=== PATIENT | male | born 1940 | race Caucasian/White ===

== ENCOUNTER 2017-05-30 21:32 | Inpatient (IN) | payer OTHER ==
[~2017-05-30] VITALS: Ht 182.9 cm; Wt 113.4 kg
--- NOTE | ~2017-05-30 | EKG ---
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
--- NOTE | ~2017-05-30 | 2DMMODE ---
Formerly [facility] [address] [place] [address] 2 D/M-MODE ECHOCARDIOGRAM Name: CONSTANTINOEVELYN BAIN Room #: 464-P ADM IN M.R.#: [id number] Admission: 05/31/17 Attend Phys: Ramon Schulz Discharge: Date of : 40 Date of Service: 06/01/17 1431 Report #: [id number] THIS REPORT FOR: //name// APPROVED REPORT Study performed: 06/01/2017 11:56:54 EXAM: Comprehensive 2D, Doppler, and color-flow Echocardiogram Patient Location: Bedside Room #: 464 Other Information Study Quality: Technically Difficult Adequate Indications COPD Diabetes Murmur Dyspnea Hypertension/HDD 2D Dimensions RVDd: 41.21 mm LVEF(%): 67.37 (>50%) IVSd: 16.26 (7-11mm) LVOT Diam: 16.38 (18-24mm) LVDd: 48.76 mm PWd: 15.69 (7-11mm) Ascending Ao: 38.89 (22-36mm) LVDs: 30.48 (25-40mm) Aortic Root: 28.44 mm IVC: 29.00 mm Goldstein's LVEF: 67.37 % Volumes Left Atrial Volume (Systole) Single Plane 4CH: 92.11 mL Single Plane 2CH: 102.11 mL LA ESV Index: 44.00 mL/m2 Aortic Valve AoV Peak Samy.: 4.64 m/s AO Peak Gr.: 86.12 mmHg LVOT Max P.01 mmHg AO Mean Gr.: 45.64 mmHg LVOT Mean P.88 mmHg AO V2 Mean: 3.24 m/s LVOT Max V: 1.43 m/s AO V2 VTI: 103.14 cm LVOT Mean V: 0.92 m/s TOD (VTI): 0.71 cm2 LVOT V1 VTI: 34.95 cm TOD Vmax: 0.65 cm2 Formerly [facility] [place] [address] 2 D/M-MODE ECHOCARDIOGRAM Name: CONSTANTINOEVELYN ODELL Room #: 464-P [facility] IN .R.#: [id number] Admission: 05/31/17 Attend Phys: Ramon Schulz Discharge: Date of : 40 Date of Service: 06/01/17 1431 Report #: [id number] SV (LVOT): 73.62 mL Mitral Valve E/A Ratio: 1.1 MV Decel. Time: 266.92 ms MV E Max Samy.: 1.54 m/s MV A Samy.: 1.45 m/s MV PHT: 77.41 ms IVRT: 58.82 ms Pulmonary Valve PV Peak Samy.: 1.51 m/s PV Peak Gr.: 9.12 mmHg Pulmonary Vein P Vein S: 0.71 m/s P Vein A: 0.29 m/s P Vein D: 0.51 m/s P Vein A Dur.: 103.8 msec P Vein S/D Ratio: 1.39 Tricuspid Valve TR Peak Samy.: 3.68 m/s RAP Estimate: 10.00 mmHg TR Peak Gr.: 54.08 mmHg Left Ventricle The left ventricle is normal size. There is normal LV segmental wall motion. Moderate concentric left ventricular hypertrophy. The left ventricular systolic function is normal. The left ventricular ejection fraction is within the normal range. LVEF is 65%. Moderate diastolic dysfunction is present (pseudonormal filling). Right Ventricle Right ventricle is dilated. The right ventricular systolic function is normal. Atria Left atrium is dilated. Right atrium is dilated. Aortic Valve The Aortic valve is moderately calcified. Mild aortic regurgitation. There is severe valvular aortic stenosis. Aortic valve max velocity is 4.6 m/s with a max pressure gradient of 86 mmHg and a mean pressure gradient of 45.6 mmHg. Mitral Valve Mild-moerate mitral annular calcification Trace mitral regurgitation. No evidence of mitral valve stenosis. Formerly [facility] [address] [place] [address] 2 D/M-MODE ECHOCARDIOGRAM Name: MEEKSEVELYN Santiago Room #: 464-P [facility] IN M.R.#: [id number] Admission: 05/31/17 Attend Phys: Ramon Scuhlz Discharge: Date of : 40 Date of Service: 06/01/17 1431 Report #: [id number] Tricuspid Valve The tricuspid valve is normal in structure. There is mild tricuspid regurgitation. The right atrial pressure is estimated at 10 mmHg and PAP estimated at 64 mmHg. Pulmonic Valve Pulmonic valve is not well visualized. Great Vessels The aortic root is normal in size. Aortic arch is dilated at 3.9 cm. IVC is dilated and collapses >50% with inspiration. Pericardium There is no pericardial effusion. <Conclusion> The left ventricular systolic function is normal. There is normal LV segmental wall motion. LVEF is 65%. Both atria are dilated. The Aortic valve is moderately calcified. Moderately severe valvular aortic stenosis. Aortic valve max velocity is 4.6 m/s with a max pressure gradient of 86 mmHg and a mean pressure gradient of 45.6 mmHg. Mild-moderate mitral annular calcification Trace mitral regurgitation. Pulmonary artery pressure of 65mmHg There is no pericardial effusion. <ELECTRONICALLY SIGNED> By: Gino Mckeon MD, FACC 06/01/17 1431 1431 1431 Gino Mckeon MD, FACC /INF
--- NOTE | ~2017-05-30 | EKG ---
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 : 1940 Requested By: Racheal Hughes Order Number: [id number] MD: Gino Mckeon Measurements Intervals [place] Rate: 92 P: 64 [place]: 172 QRS: 78 QRSD: 108 T: 65 QT: 376 QTc: 466 Interpretive Statements Sinus tachycardia Atrial premature complexes ST elevation, consider inferior injury Compared to ECG 03/15/2015 13:22:34 Atrial fibrillation no longer present Electronically Signed On 06-01-2017 8:02:21 CDT by Gino Mckeon [email or web address] <ELECTRONICALLY SIGNED> By: Gino Mckeon MD, [facility] 06/01/17 0802 1844 1844 Gino Mckeon MD, [facility] /EPI
[~2017-05-30 21:32] MED LIST: ADVAIR 500-501 EACH INH; ALLOPURINOL 30300 M1 PO; AMLODIPINE BESYL5 MG PO; ASA5UEC PO; AVELOX 400 MG400 MG PO; CALAN SR240 MG PO; CARDIZEM CD120 MG PO; COLACE100 MG PO; COMBIVENT INH; COZAAR; COZAAR 25 MG TA25 M1 PO; COZAAR 50 MG TA50 M1 PO; COZAAR 50 MG TA50 M2 PO; COZAAR100 MG PO; DEMADEX100 MG PO; DEMADEX20 MG PO; DILTIAZEM ER90 M1 PO; DUONEB 2.5-0.5 M3 ML INH; GLIPIZIDE XL5 MG PO; HYTRIN 5 M5 MG/1 CAP PO; IRON325 M1 PO; JANUMET 50-1,01 EACH PO; JANUMET XR 1001 EACH PO; JANUVIA100 MG PO; JANUVIA50 MG PO; KLOR-CON 1010 MEQ PO; LASIX 40 MG TAB40 M2 PO; LEVAQUIN 500 M500 M2 PO; NOVOLIN N100 UNIT/3 SUBQ; NOVOLOG100 UNIT/1 SUBQ; PAXIL10 MG; PREDNISONE 10 M10 MG PO; PREDNISONE 20 M20 MG PO; PREDNISONE 5 MG5 M1; SENOKOT-S1 TA1 PO; SPIRIVA INH; TORSEMIDE100 MG PO; TRIMETHOPRIM /P10 M1 OP; TYLENOL325 MG PO; XARELTO15 MG PO; XOPENEX HFA15 GM INH; XOPENEX0.63 MG/3 IH; XOPENEX0.63 MG/3 INH
[2017-05-30 21:34] VITALS: BP 179/87
[2017-05-30 21:46] LABS: HEMATOCRIT 39.6 % (42.0-52.0); HEMOGLOBIN 13.2 gm/dL (14.0-18.0); MCH 31.1 pg (26.0-34.0); MCHC 33.3 g/dL (28.0-37.0); MCV 93.3 fL (80.0-100.0); RBC 4.24 mil/uL (4.50-6.00); RDW 15.7 % (10.5-14.5); WBC 12.9 thou/uL (4.0-11.0)
[2017-05-30 21:47] LABS: ABG COMMENT BIPAP 16/6 X 10MIN; ABG SAMPLE TYPE ARTERIAL; BE(vivo) 5.2 mmol/L (-2 to +3); HCO3 31.2 mmol/L (22.0-26.0); O2(CT) 18.2 mL/dL (15.0-23.0); O2Hb 96.8 % (92.0-98.0); PCO2 51.7 mmHg (35.0-45.0); PO2 126.2 mmHg (80.0-100.0); Pressure Support 10 cm H20; STICK SITE R.RADIAL; pH 7.399 (7.360-7.450); sO2 98.5 % (92.0-98.0); tCO2 32.8 mmol/L (24.0-30.0)
[2017-05-30] MEDS ORDERED: ECOTRIN325 MG PO (21:51)
[2017-05-30] MEDS ORDERED: COZAAR 50 MG TA50 M2 PO (21:51)
[2017-05-30] MEDS ORDERED: IRON18 M1 PO (21:52)
[2017-05-30] MEDS ORDERED: NOVOLOG100 UNIT/1 (21:54)
[2017-05-30] MEDS ORDERED: TRAJEO SUBQ (21:55)
[2017-05-30] MEDS ORDERED: XOPENEX 0.63 MG/3 M1 INH (21:56)
[2017-05-30 21:58] LABS: CALCIUM 9.1 mg/dL (8.5-10.1); CREATININE 1.9 mg/dL (0.7-1.3); POTASSIUM 4.2 mmol/L (3.5-5.1)
[2017-05-30 22:06] LABS: TROPONIN-I 0.17 ng/mL (<0.04-0.07)
[2017-05-30 22:56] LABS: ALBUMIN 3.5 g/dL (3.4-5.0); DIRECT BILIRUBIN 0.1 mg/dL (<0.1-0.3); TOTAL BILIRUBIN 0.4 mg/dL (<0.1-1.0)
[2017-05-30 23:04] LABS: APTT 26.1 Seconds (24.5-32.8); PROTIME 10.2 Seconds (9.3-11.4)
[2017-05-30 23:30] LABS: URINE BILIRUBIN NEGATIVE (Negative); URINE BLOOD NEGATIVE (Negative); URINE COLOR YELLOW; URINE GLUCOSE-RANDOM* NEGATIVE (Negative); URINE KETONES NEGATIVE (Negative); URINE LEUKOCYTES-REFLEX 1+ (Negative); URINE PROTEIN (DIPSTICK) 2+ (Negative)
[2017-05-30 23:55] LABS: CASTS None Seen /LPF (None Seen); CRYSTALS None Seen /LPF (None Seen); SQUAMOUS None Seen /LPF (0-3); URINE RBC 0-2 Rare /HPF (0-2)
[2017-05-31] VITALS (7 sets, daily range): BP systolic 116–160; BP diastolic 51–82
[2017-05-31 05:58] LABS: HEMATOCRIT 37.3 % (42.0-52.0); HEMOGLOBIN 12.4 gm/dL (14.0-18.0); MCH 30.8 pg (26.0-34.0); MCHC 33.2 g/dL (28.0-37.0); MCV 92.6 fL (80.0-100.0); RBC 4.02 mil/uL (4.50-6.00); RDW 15.9 % (10.5-14.5); WBC 16.2 thou/uL (4.0-11.0)
[2017-05-31 06:11] LABS: ALBUMIN 3.1 g/dL (3.4-5.0); CALCIUM 8.8 mg/dL (8.5-10.1); POTASSIUM 4.6 mmol/L (3.5-5.1); TOTAL BILIRUBIN 0.6 mg/dL (<0.1-1.0); TOTAL PROTEIN 7.3 g/dL (6.4-8.2)
[2017-05-31 06:39] LABS: TROPONIN-I 0.13 ng/mL (<0.04-0.07)
[2017-05-31 11:28] LABS: ABG SAMPLE TYPE ARTERIAL; BE(vivo) 0.9 mmol/L (-2 to +3); HCO3 27.2 mmol/L (22.0-26.0); LACTATE 3.06 mmol/L (0.5-2.0); O2(CT) 15.4 mL/dL (15.0-23.0); PCO2 50.2 mmHg (35.0-45.0); pH 7.352 (7.360-7.450); sO2 85.9 % (92.0-98.0); tCO2 28.8 mmol/L (24.0-30.0)
[2017-05-31 11:29] LABS: O2Hb 82.9 % (92.0-98.0); PO2 53.5 mmHg (80.0-100.0); STICK SITE R.RADIAL
[2017-06-01 04:27] VITALS: BP 148/79
[2017-06-01 08:17] VITALS: BP 145/65
[2017-06-01 09:55] LABS: HEMATOCRIT 35.8 % (42.0-52.0); HEMOGLOBIN 11.7 gm/dL (14.0-18.0); MCH 30.4 pg (26.0-34.0); MCHC 32.8 g/dL (28.0-37.0); MCV 92.6 fL (80.0-100.0); RBC 3.87 mil/uL (4.50-6.00); RDW 15.8 % (10.5-14.5); WBC 14.7 thou/uL (4.0-11.0)
[2017-06-01 09:59] LABS: CALCIUM 9.3 mg/dL (8.5-10.1); CREATININE 1.7 mg/dL (0.7-1.3); POTASSIUM 4.6 mmol/L (3.5-5.1)
[2017-06-01 12:05] VITALS: BP 142/75
[2017-06-01 15:41] VITALS: BP 150/69
[2017-06-01 20:06] VITALS: BP 143/56
[2017-06-02 03:45] VITALS: BP 142/57
[2017-06-02 06:25] LABS: HEMATOCRIT 35.9 % (42.0-52.0); HEMOGLOBIN 11.6 gm/dL (14.0-18.0); MCH 30.5 pg (26.0-34.0); MCHC 32.3 g/dL (28.0-37.0); MCV 94.4 fL (80.0-100.0); RBC 3.8 mil/uL (4.50-6.00); RDW 16.1 % (10.5-14.5); WBC 10.2 thou/uL (4.0-11.0)
[2017-06-02 06:37] LABS: CALCIUM 8.9 mg/dL (8.5-10.1); CREATININE 1.8 mg/dL (0.7-1.3)
[2017-06-02 08:51] VITALS: BP 129/56
[2017-06-02 12:12] VITALS: BP 137/62
[2017-06-02 16:09] VITALS: BP 141/53
[2017-06-02 20:00] VITALS: BP 121/73
[2017-06-03 04:00] VITALS: BP 147/72
[2017-06-03 06:20] LABS: HEMATOCRIT 35.5 % (42.0-52.0); HEMOGLOBIN 11.5 gm/dL (14.0-18.0); MCH 30.4 pg (26.0-34.0); MCHC 32.5 g/dL (28.0-37.0); MCV 93.5 fL (80.0-100.0); RBC 3.8 mil/uL (4.50-6.00); RDW 15.4 % (10.5-14.5); WBC 9.2 thou/uL (4.0-11.0)
[2017-06-03 06:39] LABS: CALCIUM 9.1 mg/dL (8.5-10.1); CREATININE 1.7 mg/dL (0.7-1.3)
[2017-06-03 06:42] LABS: POTASSIUM 3.9 mmol/L (3.5-5.1)
[2017-06-03 12:08] VITALS: BP 143/60
[2017-06-03 15:39] VITALS: BP 162/75
[2017-06-03 20:00] VITALS: BP 160/77
[2017-06-04 04:00] VITALS: BP 167/75
[2017-06-04 07:20] VITALS: BP 161/90
[2017-06-04 12:06] VITALS: BP 148/70
[2017-06-04 15:49] VITALS: BP 140/67
[2017-06-04 19:28] VITALS: BP 175/82
[2017-06-05 05:19] VITALS: BP 167/93
[2017-06-05 06:09] LABS: HEMATOCRIT 37.6 % (42.0-52.0); HEMOGLOBIN 12.6 gm/dL (14.0-18.0); MCH 30.7 pg (26.0-34.0); MCHC 33.4 g/dL (28.0-37.0); RBC 4.09 mil/uL (4.50-6.00); RDW 15.4 % (10.5-14.5); WBC 8.2 thou/uL (4.0-11.0)
[2017-06-05 06:20] LABS: CALCIUM 8.4 mg/dL (8.5-10.1); CREATININE 1.5 mg/dL (0.7-1.3); POTASSIUM 3.9 mmol/L (3.5-5.1)
[2017-06-05 08:27] VITALS: BP 161/86
[2017-06-05 12:06] VITALS: BP 150/75
[2017-06-05] MEDS ORDERED: CEFUROXIME250 MG PO (12:44)
[2017-06-05] MEDS ORDERED: MUCINEX TA600 MG/TA1 PO (12:44)
[2017-06-05] MEDS ORDERED: PREDNISONE 5 MG5 M1 PO (12:49)
[2017-06-05 12:56] VITALS: BP 150/75
== END 2017-06-05 15:17 | disposition home or self-care (01) | DRG 871 ==
LOC: ER 21:32 → 4W 05-31 01:18
PROVIDERS: Emergency Medicine; Hospitalist; Internal Medicine; Internal Medicine Pulmonary Disease; Nurse Practitioner Family
PROC: 5A09357 Assistance with Respiratory Ventilation, Less than 24 Consecutive Hours, Continuous Positive Airway Pressure (ICD-10-PCS; principal; 2017-05-31)
DX: A41.9 Sepsis, unspecified organism (principal); J96.21 Acute and chronic respiratory failure with hypoxia; J18.9 Pneumonia, unspecified organism; I50.33 Acute on chronic diastolic (congestive) heart failure; J44.0 Chronic obstructive pulmonary disease with (acute) lower respiratory infection; G93.1 Anoxic brain damage, not elsewhere classified; I48.92 Unspecified atrial flutter; N17.9 Acute kidney failure, unspecified; I13.0 Hypertensive heart and chronic kidney disease with heart failure and stage 1 through stage 4 chronic kidney disease, or unspecified chronic kidney disease; J44.1 Chronic obstructive pulmonary disease with (acute) exacerbation; I48.91 Unspecified atrial fibrillation; I27.2 Other secondary pulmonary hypertension; R01.1 Cardiac murmur, unspecified; E11.22 Type 2 diabetes mellitus with diabetic chronic kidney disease; N18.3 Chronic kidney disease, stage 3 (moderate); I35.0 Nonrheumatic aortic (valve) stenosis; I27.81 Cor pulmonale (chronic); Z90.49 Acquired absence of other specified parts of digestive tract; Z87.891 Personal history of nicotine dependence; Z88.8 Allergy status to other drugs, medicaments and biological substances; Z79.82 Long term (current) use of aspirin; Z79.899 Other long term (current) drug therapy; Z82.49 Family history of ischemic heart disease and other diseases of the circulatory system; Z99.81 Dependence on supplemental oxygen
CPT/HCPCS: 10045

== ENCOUNTER 2017-06-06 09:24 | Inpatient (IN) | payer OTHER ==
[~2017-06-06] VITALS: Ht 182.9 cm; Wt 112.5 kg
--- NOTE | ~2017-06-06 | EKG ---
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 : 1940 Requested By: David Jimenez Order Number: [id number] MD: Gino Mckeon Measurements Intervals [place] Rate: 106 P: [place]: QRS: 28 QRSD: 95 T: 34 QT: 371 QTc: 493 Interpretive Statements Atrial fibrillation Nonspecific ST and T wave abnormality Baseline wander in lead(s) V4,V6 Compared to ECG 05/30/2017 21:38:48 Premature ventricular complexes no longer present Electronically Signed On 06-08-2017 9:21:52 CDT by Gino Mckeon [email or web address] <ELECTRONICALLY SIGNED> By: Gino Mckeon MD, [facility] 06/08/17920 Gino Mckeon MD, [facility] /EPI
--- NOTE | ~2017-06-06 | EKG ---
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 cesar : 1940 Requested By: Chris Gaming Order Number: [id number] MD: Gino Mckeon Measurements Intervals [place] Rate: 158 P: [place]: QRS: 32 QRSD: 86 T: 8 QT: 295 QTc: 479 Interpretive Statements Atrial fibrillation with rapid V-rate Paired ventricular premature complexes ST depression, probably rate related Compared to ECG 05/30/2017 21:38:48 Ventricular premature complex(es) now present ST (T wave) deviation now present Sinus rhythm no longer present Electronically Signed On 06-08-2017 9:09:05 CDT by Gino Mckeon [email or web address] <ELECTRONICALLY SIGNED> By: Gino Mckeon MD, [facility] 06/08/17 0909 0951 0951 Gino Mckeon MD, [facility] /EPI
[~2017-06-06 09:24] MED LIST changes: +CEFUROXIME250 MG PO; +ECOTRIN325 MG PO; +IRON18 M1 PO; +MUCINEX TA600 MG/TA1 PO; +NOVOLOG100 UNIT/1; +PREDNISONE 5 MG5 M1 PO; +TRAJEO SUBQ; +XOPENEX 0.63 MG/3 M1 INH
[2017-06-06 09:29] VITALS: BP 139/108
[2017-06-06 10:41] LABS: HEMATOCRIT 36.8 % (42.0-52.0); HEMOGLOBIN 12.1 gm/dL (14.0-18.0); MCH 30.5 pg (26.0-34.0); MCHC 32.8 g/dL (28.0-37.0); MCV 92.9 fL (80.0-100.0); PLATELET COUNT 198 thou/uL (150-400); RBC 3.96 mil/uL (4.50-6.00); RDW 15.1 % (10.5-14.5); WBC 9.3 thou/uL (4.0-11.0)
[2017-06-06 10:44] LABS: MANUAL DIFF YES
[2017-06-06 10:49] LABS: CALCIUM 8.6 mg/dL (8.5-10.1); CREATININE 1.5 mg/dL (0.7-1.3); POTASSIUM 3.6 mmol/L (3.5-5.1)
[2017-06-06 11:01] LABS: TROPONIN-I 0.09 ng/mL (<0.04-0.07)
[2017-06-06 11:06] LABS: ABG SAMPLE TYPE ARTERIAL; BE(vivo) 11.5 mmol/L (-2 to +3); HCO3 37.6 mmol/L (22.0-26.0); LACTATE 2.38 mmol/L (0.5-2.0); O2(CT) 17.7 mL/dL (15.0-23.0); O2Hb 93.1 % (92.0-98.0); PCO2 55.4 mmHg (35.0-45.0); PO2 75.8 mmHg (80.0-100.0); sO2 95.5 % (92.0-98.0); tCO2 39.3 mmol/L (24.0-30.0)
[2017-06-06 11:07] LABS: STICK SITE L.RADIAL
[2017-06-06 11:16] LABS: ABSOLUTE NEUTROPHILS 7.4 thou/uL (1.4-8.2); ANISOCYTOSIS 1+; NUCLEATED RBCS 1 /100WBC; TOTAL CELL COUNT 100
[2017-06-06 11:17] LABS: POIKILOCYTOSIS SLIGHT
[2017-06-06 15:00] VITALS: BP 112/45
[2017-06-06 15:45] VITALS: BP 121/53
[2017-06-06 19:39] VITALS: BP 151/68
[2017-06-06 22:25] VITALS: BP 151/68
[2017-06-06 23:42] VITALS: BP 148/72
[2017-06-07 01:28] LABS: CALCIUM 8.2 mg/dL (8.5-10.1); CREATININE 1.5 mg/dL (0.7-1.3); MAGNESIUM 2.2 mg/dL (1.8-2.4); POTASSIUM 3.4 mmol/L (3.5-5.1)
[2017-06-07 04:25] VITALS: BP 165/77
[2017-06-07 07:15] VITALS: BP 131/62
[2017-06-07 11:30] VITALS: BP 100/64
[2017-06-07 15:35] VITALS: BP 124/64
[2017-06-07 20:01] VITALS: BP 142/64
[2017-06-08 04:01] VITALS: BP 116/43
[2017-06-08 07:30] VITALS: BP 129/68
[2017-06-08 11:50] VITALS: BP 121/53
[2017-06-08 15:25] VITALS: BP 100/40
[2017-06-08 19:35] VITALS: BP 126/68
[2017-06-09 04:07] LABS: GLYCOHEMOGLOBIN (HGB A1C) 7.4 % (4.8-5.6)
[2017-06-09 07:08] LABS: ABSOLUTE NEUTROPHILS 7.7 thou/uL (1.4-8.2); BASOPHILS 0.4 % (0.0-2.0); EOSINOPHILS 1.4 % (0.0-3.0); HEMATOCRIT 32.8 % (42.0-52.0); HEMOGLOBIN 10.9 gm/dL (14.0-18.0); LYMPHOCYTES 12.3 % (24.0-44.0); MCH 30.9 pg (26.0-34.0); MCHC 33.2 g/dL (28.0-37.0); MONOCYTES 4.6 % (1.0-8.0); PLATELET COUNT 168 thou/uL (150-400); POLYS 81.3 % (36.0-66.0); RBC 3.53 mil/uL (4.50-6.00); RDW 15.3 % (10.5-14.5); WBC 9.5 thou/uL (4.0-11.0)
[2017-06-09 07:15] LABS: MANUAL DIFF NO
[2017-06-09 07:56] VITALS: BP 152/74
[2017-06-09 07:56] LABS: CALCIUM 8.4 mg/dL (8.5-10.1); CREATININE 1.5 mg/dL (0.7-1.3); POTASSIUM 3.9 mmol/L (3.5-5.1)
[2017-06-09 12:20] VITALS: BP 152/82
[2017-06-09 15:50] VITALS: BP 132/55
[2017-06-09 19:52] VITALS: BP 137/60
[2017-06-09 23:51] VITALS: BP 134/56
[2017-06-10 02:53] LABS: CALCIUM 8.1 mg/dL (8.5-10.1); CREATININE 1.4 mg/dL (0.7-1.3)
[2017-06-10 03:23] VITALS: BP 135/53
[2017-06-10 07:42] VITALS: BP 129/47
[2017-06-10 11:40] VITALS: BP 119/44
[2017-06-10 16:30] VITALS: BP 135/60
[2017-06-10 19:10] VITALS: BP 128/51
[2017-06-11 04:02] VITALS: BP 150/52
[2017-06-11 08:03] VITALS: BP 139/51
[2017-06-11 16:14] VITALS: BP 145/58
[2017-06-11 19:28] VITALS: BP 140/62
[2017-06-12 03:58] VITALS: BP 133/49
[2017-06-12] MEDS ORDERED: DUONEB 2.5-0.5 M3 ML INH (07:12)
[2017-06-12] MEDS ORDERED: PRADAXA75 MG PO (07:12)
[2017-06-12] MEDS ORDERED: ATENOLOL 50MG T50 MG PO (07:12)
[2017-06-12] MEDS ORDERED: PREDNISONE 10 M10 MG PO (07:14)
[2017-06-12 07:29] VITALS: BP 133/49
[2017-06-12 10:49] VITALS: BP 133/49
[2017-06-12 11:49] VITALS: BP 133/49
== END 2017-06-12 11:51 | disposition home or self-care (01) | DRG 291 ==
LOC: ER 09:24 → 2N 11:53 → EROBS 11:53 → 2N 14:47
PROVIDERS: Emergency Medicine; Family Medicine; Internal Medicine; Internal Medicine Geriatric Medicine; Internal Medicine Pulmonary Disease
DX: I50.33 Acute on chronic diastolic (congestive) heart failure (principal); J96.21 Acute and chronic respiratory failure with hypoxia; N17.9 Acute kidney failure, unspecified; I13.0 Hypertensive heart and chronic kidney disease with heart failure and stage 1 through stage 4 chronic kidney disease, or unspecified chronic kidney disease; I48.92 Unspecified atrial flutter; I48.0 Paroxysmal atrial fibrillation; J44.9 Chronic obstructive pulmonary disease, unspecified; E11.9 Type 2 diabetes mellitus without complications; I27.2 Other secondary pulmonary hypertension; I35.0 Nonrheumatic aortic (valve) stenosis; N18.9 Chronic kidney disease, unspecified; Z79.82 Long term (current) use of aspirin; Z79.4 Long term (current) use of insulin; Z87.01 Personal history of pneumonia (recurrent); Z79.52 Long term (current) use of systemic steroids; Z79.899 Other long term (current) drug therapy; Z87.891 Personal history of nicotine dependence; Z90.49 Acquired absence of other specified parts of digestive tract; Z88.8 Allergy status to other drugs, medicaments and biological substances
CPT/HCPCS: 10081

== ENCOUNTER → 2017-07-10 | Outpatient (CLI) | payer OTHER ==
[~2017-07-10] MED LIST changes: +ATENOLOL 50MG T50 MG PO; +PRADAXA75 MG PO
== END ==
LOC: RAD 11:35
DX: R06.00 Dyspnea, unspecified (principal)

== ENCOUNTER → 2018-11-17 | Outpatient (CLI) | payer OTHER ==
--- NOTE | ~2018-11-17 | 2DMMODE ---
[facility] [place] [address] 2 D/M-MODE ECHOCARDIOGRAM Name: EVELYN MEEKS Room #: REG CL [facility]#: [id number] Admission: 11/17/18 Attend Phys: Gino Mckeon, Discharge: Date of : 40 Date of Service: 11/17/18 1209 Report #: [id number] THIS REPORT FOR: //name// APPROVED REPORT Study performed: 11/17/2018 10:22:02 EXAM: Comprehensive 2D, Doppler, and color-flow Echocardiogram Patient Location: Out-Patient Status: routine BSA: 2.22 HR: 72 bpm BP: 142/75 mmHg Rhythm: NSR Other Information Study Quality: Good Indications Aortic stenosis, CHF, Afib, HTN, COPD 2D Dimensions RVDd: 42.91 mm IVSd: 13.32 (7-11mm) LVOT Diam: 20.96 (18-24mm) LVDd: 49.53 mm PWd: 12.57 (7-11mm) Ascending Ao: 42.32 (22-36mm) LVDs: 35.12 (25-40mm) Aortic Root: 39.19 mm Volumes Left Atrial Volume (Systole) Single Plane 4CH: 84.66 mL Single Plane 2CH: 91.02 mL LA ESV Index: 43.00 mL/m2 Aortic Valve AoV Peak Samy.: 4.74 m/s AO Peak Gr.: 89.84 mmHg LVOT Max P.72 mmHg AO Mean Gr.: 54.20 mmHg AO V2 Mean: 3.57 m/s LVOT Max V: 1.30 m/s AO V2 VTI: 102.25 cm TOD Vmax: 0.94 cm2 Mitral Valve E/A Ratio: 0.9 [facility] [place] [address] 2 D/M-MODE ECHOCARDIOGRAM Name: EVELYN MEEKS Room #: [facility]#: [id number] Admission: 11/17/18 Attend Phys: Gino Mckeon, Discharge: Date of : 40 Date of Service: 11/17/18 1209 Report #: [id number] MV Decel. Time: 290.87 ms MV E Max Samy.: 1.26 m/s MV A Samy.: 1.39 m/s MV PHT: 84.35 ms IVRT: 55.36 ms Pulmonary Valve PV Peak Samy.: 1.32 m/s PV Peak Gr.: 6.97 mmHg Pulmonary Vein P Vein S: 0.54 m/s P Vein A: 0.30 m/s P Vein D: 0.55 m/s P Vein A Dur.: 156.9 msec P Vein S/D Ratio: 0.98 Tricuspid Valve TR Peak Samy.: 3.54 m/s RAP Estimate: 10.00 mmHg TR Peak Gr.: 50.17 mmHg PA Pressure: 60.00 mmHg Left Ventricle The left ventricle is normal size. There is normal LV segmental wall motion. Mild concentric left ventricular hypertrophy. Left ventricular systolic function is normal. LVEF is 65%. Mild diastolic dysfunction is present (impaired relaxation pattern). Right Ventricle Right ventricle is mildly dilated. The right ventricular systolic function is normal. Atria Left atrium is mild to moderately dilated. Right atrium is mildly dilated. Aortic Valve Aortic valve is heavily calcified, severely stenotic. Mild aortic regurgitation. There is severe valvular aortic stenosis. Calculated aortic valve area is 0.9 cm2 with maximum pressure gradient of 90 mmHg and mean pressure gradient of 48 mmHg. Mitral Valve Mild mitral annular calcification. Trace to mild mitral regurgitation. No evidence of mitral valve stenosis. Tricuspid Valve The tricuspid valve is normal in structure. Mild to moderate tricuspid regurgitation. Estimated PAP is 60mmHg. [facility] [address] [place] [address] 2 D/M-MODE ECHOCARDIOGRAM Name: EVELYN MEEKS Room #: REG CL [place]#: [id number] Admission: 11/17/18 Attend Phys: Gino Mckeon, Discharge: Date of : 40 Date of Service: 11/17/18 1209 Report #: [id number] Pulmonic Valve Pulmonic valve is not well visualized. Great Vessels Aortic root is mildly dilated at 3.9cm. Ascending aorta is dilated at 4.2cm. IVC is dilated and collapses >50% with inspiration. Pericardium There is no pericardial effusion. <Conclusion> Left ventricular systolic function is normal. There is normal LV segmental wall motion. LVEF is 65%. Mild diastolic dysfunction Aortic valve is heavily calcified, severely stenotic. Mild insufficiency Calculated aortic valve area is 0.9 cm2 with maximum pressure gradient of 90 mmHg and mean pressure gradient of 48 mmHg. Mild mitral annular calcification. Trace to mild mitral regurgitation. Mild to moderate tricuspid regurgitation. Estimated pulmonary artery pressure of 60mmHg. Ascending aorta is dilated at 4.2cm. There is no pericardial effusion. Similar to May, when peak transaortic gradient was 86mm, mean 46mm Hg. EF similar. <ELECTRONICALLY SIGNED> By: Gino Mckeon MD, FACC 11/17/181208 08 08 Gino Mckeon MD, FACC /INF
== END ==
LOC: CV 07:53
DX: I08.2 Rheumatic disorders of both aortic and tricuspid valves (principal); I11.0 Hypertensive heart disease with heart failure; I50.32 Chronic diastolic (congestive) heart failure; I48.0 Paroxysmal atrial fibrillation; J44.9 Chronic obstructive pulmonary disease, unspecified; J96.11 Chronic respiratory failure with hypoxia

== ENCOUNTER 2019-03-07 22:42 | Inpatient (IN) | payer OTHER ==
[~2019-03-07] VITALS: Ht 172.7 cm; Wt 107.6 kg
--- NOTE | ~2019-03-07 | HC ---
Formerly [facility] [place] [address] CONSULTATION Name: EVELYN MEEKS Room #: 216-P [facility] IN M.R.#: [id number] Admission: 03/08/19 ������������������ Attend Phys: Malik Leonard MD Discharge: ������������������ Date of : 40 Report #: [id number] THIS REPORT FOR: //name// CC: FAM unknown Malik Leonard DATE OF SERVICE: 03/11/2019 REASON FOR CONSULTATION: Elevated creatinine. REASON FOR PRESENTATION: Confusion and lethargic. HISTORY OF PRESENT ILLNESS: Very complex 78-year-old with history of hypertension, CKD, COPD, heart failure, AFib, aortic stenosis. He was brought to the Emergency Room because of low pulse ox, increased confusion and lethargy. The patient is known to have CKD with a baseline creatinine anywhere from 1.5-1.8. He is known to have severe aortic stenosis. He was admitted to further evaluate his symptoms. He developed fever and chills. He also has some cough. He denies any urinary symptoms. Alejandra catheter was placed for the patient on arrival. He has a creatinine of 1.8 on arrival. This has gone up to 2.9 after removing the Alejandra catheter. As it turned out, the patient has significant urinary retention and had about a liter of urine after replacing his Alejandra catheter. He is currently being treated as COPD exacerbation with a viral component. Cardiology is also following. PAST MEDICAL HISTORY: Extensive and includes the followin. COPD, oxygen dependent. 2. Severe aortic stenosis. 3. A-Fib. 4. Heart failure. 5. Chronic kidney disease. 6. Hypertension. 7. Cholecystectomy. 8. Atrial fibrillation. 9. Chronic venous stasis changes. ALLERGIES: DIAZEPAM. SOCIAL HISTORY: , lives with his . MEDICATIONS: 1. Iron. 2. Diltiazem. 3. Losartan. 4. Aspirin. 5. Allopurinol. Formerly [facility] [address] [place] [address] CONSULTATION Name: EVELYN MEEKS Room #: 216-P [facility] IN [facility].#: [id number] Admission: 03/08/19 ������������������ Attend Phys: Malik Leonard MD Discharge: ������������������ Date of : 40 Report #: [id number] 6. Torsemide. REVIEW OF SYSTEMS: GENERAL: Significant for shortness of breath and weakness. CARDIOVASCULAR: Shortness of breath and dyspnea on exertion. PULMONARY: As per the history of present illness. GASTROINTESTINAL: No nausea or vomiting. GENITOURINARY: As per the history of present illness. PHYSICAL EXAMINATION: GENERAL: He is alert, oriented, in no apparent distress. He is utilizing oxygen nasal cannula 5 liters. VITAL SIGNS: Blood pressure is 101/50. He did have some low blood pressure reading. HEAD AND NECK: No jugular venous distention. CHEST: Decreased air entry with crackles. CARDIOVASCULAR: No rub. ABDOMEN: Soft, nontender. LOWER EXTREMITIES: Trace edema. LABORATORY DATA: Reviewed. Hemoglobin is 8.7. Sodium is 131, potassium is 3.8, BUN is 51, creatinine is 2.9. Cultures so far negative. ASSESSMENT, IMPRESSION AND PLAN: 1. Acute kidney injury due to urinary retention. 2. Chronic kidney disease. 3. Atrial fibrillation. 4. Severe aortic stenosis. 5. Chronic obstructive pulmonary disease. 6. Catheter was placed back in. He did have significant urine output up to 2 liters. 7. Monitor urine. Renal function. Labs from today pending. 8. Baseline creatinine is around 1.5-1.8 and expect him to fully recover. 9. Management of chronic obstructive pulmonary disease per Pulmonary. 10. Management of aortic stenosis and atrial fibrillation per Cardiology. 11. Blood sugar control. 12. We will continue to follow. ��������������������������������������������� ���������������������������������������� By: ��������������������������������������������� 0814 2238 Dariusz Fontenot MD /nt
[2019-03-07 22:48] VITALS: BP 151/62
[2019-03-07 23:36] LABS: BE(vivo) 4.7 mmol/L (-2 to +3); HCO3 29.1 mmol/L (22.0-26.0); PCO2 42.6 mmHg (35.0-45.0); pH 7.452 (7.360-7.450); sO2 94.3 % (92.0-98.0)
[2019-03-08 00:32] LABS: ABSOLUTE NEUTROPHILS 5.6 thou/uL (1.4-8.2); BASOPHILS 0.7 % (0.0-2.0); EOSINOPHILS 0.2 % (0.0-3.0); HEMATOCRIT 28.7 % (42.0-52.0); HEMOGLOBIN 9.8 gm/dL (14.0-18.0); MCH 29.2 pg (26.0-34.0); MCV 85.7 fL (80.0-100.0); MONOCYTES 11.9 % (1.0-8.0); PLATELET COUNT 211 thou/uL (150-400); POLYS 74.2 % (36.0-66.0); RBC 3.35 mil/uL (4.50-6.00); RDW 18.4 % (10.5-14.5); WBC 7.6 thou/uL (4.0-11.0)
[2019-03-08 00:44] LABS: CALCIUM 9.4 mg/dL (8.5-10.1); CREATININE 1.8 mg/dL (0.7-1.3); POTASSIUM 3.2 mmol/L (3.5-5.1)
[2019-03-08 00:50] LABS: ALBUMIN 3.1 g/dL (3.4-5.0); TOTAL BILIRUBIN 0.5 mg/dL (<0.1-1.0); TOTAL PROTEIN 7.1 g/dL (6.4-8.2); TROPONIN-I 0.08 ng/mL (<0.06)
[2019-03-08 07:36] VITALS: BP 142/74
[2019-03-08 08:42] LABS: URINE BILIRUBIN NEGATIVE (Negative); URINE BLOOD 1+ (Negative); URINE CLARITY CLEAR; URINE COLOR YELLOW; URINE GLUCOSE-RANDOM* NEGATIVE (Negative); URINE KETONES NEGATIVE (Negative); URINE LEUKOCYTES-REFLEX NEGATIVE (Negative); URINE NITRITE-REFLEX NEGATIVE (Negative); URINE PROTEIN (DIPSTICK) 2+ (Negative); URINE UROBILINOGEN 0.2 E.U./dl (0.2-1.0)
[2019-03-08 09:01] VITALS: BP 153/81
[2019-03-08 09:03] LABS: SQUAMOUS None Seen /LPF (0-3)
[2019-03-08 09:04] LABS: BACTERIA-REFLEX 1-9 Few /HPF (None Seen); CASTS None Seen /LPF (None Seen); CRYSTALS None Seen /LPF (None Seen); URINE RBC 3-10 Few /HPF (0-2); URINE WBC-REFLEX None Seen /HPF (0-5)
[2019-03-08 10:26] LABS: % SATURATION 7 % (20-39); IRON 20 ug/dL (65-175); TIBC 273 ug/dL (250-450)
--- NOTE | 2019-03-08 11:05 | NUR ---
SPOKE WITH ASHER ARELLANO, OKAY TO GIVE 70 MEQ OF POTASSIUM PO.
[2019-03-08] MEDS ORDERED: CARDIZEM CD240 MG PO (13:01)
[2019-03-08] MEDS ORDERED: TOUJEO SOL300 UNIT/1 SUBQ (13:07)
[2019-03-08] MEDS ORDERED: CENTRUM SILVER1 EAC2 PO (13:08)
[2019-03-08] MEDS ORDERED: VENTOLIN HFA 1818 GM INH (13:08)
[2019-03-08] MEDS ORDERED: VITAMIN B-12500 MCG PO (13:08)
[2019-03-08] MEDS ORDERED: IRON325 PO (13:10)
[2019-03-08] MEDS ORDERED: PREDNISONE 1 MG1 M1 PO (13:13)
--- NOTE | 2019-03-08 14:56 | NUR ---
ASSUMED CARE AT 0700. PT IS IN ER-HOLDING. PT IS A&OX4. PT LIKES TO JOKE AROUND. PT HAS BEEN AFEBRILE SINCE CARE HAS BEEN TAKEN OVER. PT IS WEAK. PT WANTS TO STAND UP AT BEDSIDE BUT IS VERY WEAK AND NEEDS A LOT OF ASSISTANCE. NG PLACED PER ORDER. 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
--- NOTE | 2019-03-08 16:52 | EKG ---
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: NICHOLE : 1940 Requested By: Tia Lim Order Number: [id number] MD: Gino Mckeon Measurements Intervals [place] Rate: 100 P: MS: QRS: 22 QRSD: 89 T: -12 QT: 329 QTc: 425 Interpretive Statements Atrial fibrillation Nonspecific ST and T wave abnormality Compared to ECG 06/07/2017 07:39:50 No significant change was found Electronically Signed On 03-08-2019 16:51:59 CDT by Gino Mckeon [email or web address] ��������������������������������������������� <ELECTRONICALLY SIGNED> ���������������������������������������� By: Gino Mckeon MD, [facility] ��������������������������������������������� 03/08/19 1651 20 20 Gino Mckeon MD, [facility] /EPI
[2019-03-08 17:10] VITALS: BP 129/70
[2019-03-08 19:00] VITALS: BP 131/60
[2019-03-09 00:06] VITALS: BP 123/58
[2019-03-09 04:52] LABS: BASOPHILS 0.3 % (0.0-2.0); HEMATOCRIT 28.9 % (42.0-52.0); HEMOGLOBIN 9.6 gm/dL (14.0-18.0); LYMPHOCYTES 8.1 % (24.0-44.0); MCH 28.4 pg (26.0-34.0); MCHC 33.1 g/dL (28.0-37.0); MCV 85.8 fL (80.0-100.0); MONOCYTES 1.8 % (1.0-8.0); PLATELET COUNT 189 thou/uL (150-400); POLYS 89.8 % (36.0-66.0); RBC 3.36 mil/uL (4.50-6.00); RDW 18.1 % (10.5-14.5); WBC 5.5 thou/uL (4.0-11.0)
[2019-03-09 05:01] LABS: CALCIUM 8.8 mg/dL (8.5-10.1); CREATININE 2.1 mg/dL (0.7-1.3); POTASSIUM 4.4 mmol/L (3.5-5.1)
--- NOTE | 2019-03-09 05:34 | NUR ---
ASSUMED PT CARE AT 1900. PT WAS A NEW ADMIT FROM ER. ADMISSION ASSESSMENT DONE AND MEDS ADMINISTERED. PT WAS A&0X4 BUT REALLY DROWSY, TIREDA ND WEAK. WHEN I ASKED HIM TO SIT UP SO I COULD LISTEN TO HIS LUNGS, HE WAS UNABLE TO. PT'S INITIAL TEMP UPON GETTING TO THE FLOOR WAS WNL, AROUND 10PM, HE SPIKED A 102.5 FEVER. TYLENOL GIVEN AND HIS FEVER DROPPED TO 99.5 AN HOUR AFTER. THIS AM HIS TEMP FURTHER DROPPED TO 97.5. HE HAS 2+ EDEMA IN HIS BLE. STILL HAS A NG IN, GOOD URINE OUTPUT OVERNIGHT. ABX ADMINISTERED ORDERED. HIS HR WAS ALSO ELEVATED FOR THE FIRST HALF OF THE SHIFT. HE WAS BOUNCING AROUND 110s TO 130s. THERE WAS ONETIME WHEN HIS HR WENT UP TO 150s WHEN HE WAS HAVING HIS BREATHING TX. ANGELIQUE RONQUILLO NOTIFIED, 2.5MG IV METOPROLOL WAS ORDERED AND ADMINISTERED AND PT'S HR CAME DOWN TO THE 80s AND IT HAS REMAINED LIKE THAT SINCE THE MED WAS GIVEN AROUND 1AM. I INCREASED HIS 02 TO 7L, HE WAS SATTING IN THE HIGH 80S ON 6L. HIS STRENGHT IS MUCH BETTER THIS AM. HE WAS ABLE TO SIT UP FOR ME UPON INSTRUCTION, HE ALSO SEEMS TO BE DOING WELL. PT IS STABLE NOW, EVERYTHING APPEARS TO BE UNDER CONTROL. WILL CONTINUE TO MONITOR PER POC.
[2019-03-09 05:42] VITALS: BP 139/74
--- NOTE | 2019-03-09 08:24 | EKG ---
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: : 1940 Requested By: Gnio Mckeon Order Number: [id number] MD: Antony Carr Measurements Intervals [place] Rate: 80 P: [place]: QRS: 40 QRSD: 92 T: 18 QT: 413 QTc: 477 Interpretive Statements Atrial fibrillation Borderline prolonged QT interval Baseline wander in lead(s) V4,V5 Compared to ECG 03/07/2019 23:21:52 ST (T wave) deviation no longer present Electronically Signed On 03-09-2019 8:24:02 CDT by Antony Carr [email or web address] ��������������������������������������������� <ELECTRONICALLY SIGNED> ���������������������������������������� By: Antony Carr MD ��������������������������������������������� 03/09/1924 5 5 Antony Carr MD /EPI
--- NOTE | 2019-03-09 11:56 | HC ---
[facility] [place] [address] CONSULTATION Name: EVELYN MEEKS Room #: 216-P ADM IN M.R.#: [id number] Admission: 03/08/19 ������������������ Attend Phys: Malik Leonard MD Discharge: ������������������ Date of : 40 Report #: [id number] THIS REPORT FOR: //name// CC: FAM unknown Malik Leonard DATE OF SERVICE: 03/08/2019 TYPE OF REPORT: Infectious disease consultation. REASON FOR CONSULTATION: Evaluate fever. HISTORY OF PRESENT ILLNESS: The patient is a 78-year old, underlying history of aortic stenosis, oxygen-dependent COPD, diabetes and chronic kidney disease; admitted through the Emergency Room with generalized weakness, some confusion, shortness of breath that has been progressive over the last several days. Also noted to have fever and chills today. He has had intermittent cough with little sputum production. No pleuritic chest pain. No nausea, vomiting or diarrhea. No dysuria. He was treated for exacerbation of COPD approximately 2 weeks ago with oral antibiotic and corticosteroids. Since then, he still had some dyspnea and cough. The patient denies any travel. There was a history in the chart of previous MRSA in his respiratory secretions. No chest pain either substernal or pleuritic. He does have known atrial fibrillation. REVIEW OF SYSTEMS: Ten-point review was negative other than what is described above. ALLERGIES: VALIUM. MEDICATIONS: As noted on his MAR, now including Zosyn. He was on prednisone 1 mg per day. PAST MEDICAL HISTORY: COPD, oxygen dependent; congestive heart failure; aortic stenosis; previous pneumonia; chronic kidney disease; diabetes; hypertension; cholecystectomy and atrial fibrillation. FAMILY HISTORY: Noncontributory. SOCIAL HISTORY: Past smoker. No significant alcohol intake. Lives with his . PHYSICAL EXAMINATION: VITAL SIGNS: His temperature was 38 degrees, heart rate was 80 and atrial fibrillation and blood pressure is stable. He was on oxygen at 6 liters per [facility] [address] [place] [address] CONSULTATION Name: EVELYN MEEKS Room #: 216-[facility] IN [facility]#: [id number] Admission: 03/08/19 ������������������ Attend Phys: Malik Leonard MD Discharge: ������������������ Date of : 40 Report #: [id number] nasal cannula. GENERAL: He was moderately obese. He was short of breath with any activity and intermittent nonproductive loose sounding cough. HEENT: Eyes without scleral icterus. Mouth without mucositis. He was edentulous. NECK: Supple, with no thyromegaly or mass. No JVD. LUNGS: Decreased breath sounds bilaterally with no consolidation. HEART: Irregular with a 2/6 systolic murmur heard at left sternal border. No gallop or rub. ABDOMEN: Obese, protuberant and had a midline ventral hernia, which was easily reducible. No hepatosplenomegaly or mass. GENITOURINARY: External genitalia without lesion or mass and indwelling Alejandra catheter. RECTAL: Not performed. EXTREMITIES: With 2+ peripheral edema in the lower extremities, but no cellulitis. No clubbing or cyanosis. NEUROLOGICAL: Cranial nerves intact. Strength in his upper and lower extremities was normal with normal sensation to touch upper and lower extremities. Mood was normal, although he appeared a bit confused. LABORATORY STUDIES: Procalcitonin 0.3. TSH 3.5. BNP 1024. Sodium 137, potassium 3.2, bicarbonate 33 and creatinine 1.8. Liver function test normal. Hemoglobin 9.8; WBC 7.6 and platelet count 211,000. Blood cultures are pending. RADIOLOGICAL DATA: Chest x-ray, chronic changes with cardiomegaly and no acute infiltrates evident. IMPRESSION: A 78-year old with advanced chronic obstructive pulmonary disease, diabetes and aortic stenosis; presents with confusion, fever and anemia, in acute on chronic kidney disease. I am suspecting exacerbation of chronic obstructive pulmonary disease, bronchitis, could be viral in nature. So far no evidence of intraabdominal infection or urinary tract infection. He does have anemia, which is yet to be further defined. RECOMMENDATIONS: We will continue IV antibiotic therapy with Zyvox, Zosyn and Tamiflu. Obtain urine antigens, viral respiratory panel, sputum culture and rescreen for MRSA. Corticosteroids and oxygen supplementation. Monitored floor. Discussed with nursing at the bedside. ��������������������������������������������� <ELECTRONICALLY SIGNED> ���������������������������������������� By: Chapincito Rico MD ��������������������������������������������� 03/09/19 1156 [id number] Chapincito Rico MD /nt
--- NOTE | 2019-03-09 14:17 | NUR ---
Met with patient and in room. patient admits with copd exacerbation. Patient and reside at home in independent home all needs on one level. All needs on one level. "Ill save you a trip we dont need anything at home." Patient always denies need for home. was here for EGD and then patient went to ER. reports 3 supportive sons live in [facility] and [facility]. Patient uses no assistive device. he has home oxygen via [employer] 5-6 liters at home. casemgt following.
[2019-03-09 14:58] VITALS: BP 136/114
--- NOTE | 2019-03-09 18:32 | NUR ---
ASSESSMENT DOCUMENTED. PT ALERT AND ORIENTED. ON 7L N/C SAT LOW 90,S. RT TREATMENT GIVEN ORDERED. CONTACT ISOLATION D/C. BERENICE D/C. HAD HIGH BS THIS SHIFT. DR SWIFT NOTIFIED. ORDERS NOTED. SB ON TELI WITH PAUSES. CARDIOLOGY NOTIFIED. PT HAS BEEN UP IN THE CHAIR THIS SHIFT. AT THE BEDSIDE. NO CARDIAC OR RESPIRATORY DISTRESS NOTED. FALL PRECAUTION IN PLACE. WILL CONTINUE TO MONITOR.
[2019-03-09 19:31] VITALS: BP 84/69
[2019-03-10 03:59] VITALS: BP 97/47
[2019-03-10 04:57] LABS: CALCIUM 8.7 mg/dL (8.5-10.1); CREATININE 2.9 mg/dL (0.7-1.3); POTASSIUM 3.8 mmol/L (3.5-5.1)
[2019-03-10 05:13] LABS: HEMATOCRIT 25.9 % (42.0-52.0); HEMOGLOBIN 8.7 gm/dL (14.0-18.0); MCH 28.6 pg (26.0-34.0); MCHC 33.5 g/dL (28.0-37.0); MCV 85.5 fL (80.0-100.0); RBC 3.03 mil/uL (4.50-6.00); WBC 8.1 thou/uL (4.0-11.0)
--- NOTE | 2019-03-10 05:26 | NUR ---
ASSUMED PT CARE AT 1900. VSS. PT A&0X4 IN HIGH SPIRITS AND SITTING UP IN THE CHAIR. PT STRENGHT HAS IMPROVED SINCE DAY ONE OF ADMISSION. FSBS AT THE START OF SHIFT WAS 416 AND WAS COVERED PER SSI AND SCHEDULED T, ANGELIQUE RONQUILLO ALSO NOTIFIED. FSBS RECHECKED AT MIDNIGHT AND IT SLIGHTLY DROPPED TO 358, ANGELIQUE RONQUILLO NOTIFIED AND A ONETIME TREATMENT PER SSI WAS ORDERED. HENCE ANOTHER 20 UNITS OF INSULIN WAS ADMINISTERED. THIS AM, BLOOD SUGAR DROPPED TO 262. PT STILL ON FLUID RESTRICTION, ALTHOUGH HE GETS VERY THIRSTY AND REQUESTS WATER OFTEN. BERENICE WAS TAKEN OUT PRIOR TO ME COMMING ON PT;S CARE AND PT HAD 250 ML URINE OUTPUT OVERNIGHT. PT REMAINS OF 7L NC. PT IS STABLE, WILL CONTINUE TO MONITOR.
[2019-03-10 08:31] VITALS: BP 95/51
--- NOTE | 2019-03-10 11:56 | NUR ---
PATIENT UNABLE TO VOID X 3 TIMES, BLADDER SCAN RESULTS 579ML, DR RAMOS NOTIFIED, NG CATHETER ORDERED
[2019-03-10 12:26] VITALS: BP 104/58
--- NOTE | 2019-03-10 14:09 | NUR ---
Nutrition: Pt admitted with sepsis, COPD exacerbation/viral illness. Seen due to sepsis dx. Pt with good appetite. Not a huge fan of the hospital food but able to order meals. Listened to pt voice complaints-addressed. BG 239-358 on carb controlled diet and SSI. Recent intentional weight loss of 20# voiced by pt. Sarcopenia documented per physician. Fluid restriction reviewed with pt/ . Consider low nutrition risk.
[2019-03-10 16:00] VITALS: BP 107/59
--- NOTE | 2019-03-10 17:38 | NUR ---
PATIENT UNABLE TO URINATE, BLADDER SCAN PERFORMED, RESULTS OF SCAN 579 MLS, NG CATHETER INSERTED. PATIENT GIVEN MIRALAX AND PRUNE JUICE, ALERT AND ORIENTED, STATES HE IS MORE COMFORTABLE IN CHAIR AND WOULD LIKE TO SLEEP IN THE CHAIR.
[2019-03-10 19:16] VITALS: BP 115/55
--- NOTE | 2019-03-11 04:16 | NUR ---
ASSUMED PT CARE AT 1900. VSS. PT A&0X4. PT;S ACTIVITY AND MOBILITY SEAMS TO BE GETIING BETTER. HE WAS STEADY ON HIS FEET THE FEW TIMES HE HAD TO GET UP AND GO TO THE TOILET. HE HAD 2 BM THIS SHIFT. GOOD URINE OUTPUT OVERNIGHT. HE IS NOW ON 5L NC. TOLERATING IT WELL. PT IS DOING BETTER, HE SAYS HE FEELS BETTER, NO COMPLAINTS OF PAIN, WILL CONTINUE TO MONITOR PER POC.
[2019-03-11 04:51] VITALS: BP 101/50
[2019-03-11 08:52] VITALS: BP 101/51
[2019-03-11 08:58] LABS: CALCIUM 8.8 mg/dL (8.5-10.1); CREATININE 2.6 mg/dL (0.7-1.3); PHOSPHORUS 5.1 mg/dL (2.5-4.9); POTASSIUM 4.1 mmol/L (3.5-5.1)
--- NOTE | 2019-03-11 14:41 | NUR ---
Discussed hh referral with the pt. He will consider if recommended at dc. [facility] alerted to possible referral and they can accept if the pt is agreeable. If the pt is dc'd this weekend, fax hh orders to [phone] and call the paper control clerk nurse to advise [phone].
[2019-03-11 14:43] VITALS: BP 101/51
[2019-03-11 16:59] VITALS: BP 126/68
--- NOTE | 2019-03-11 17:28 | NUR ---
PT ALERT AND ORIENTED. VSS. DENIED HAVING PAIN OR DISCOMFORT. PARTICIPATED IN PHYSICAL AND OCCUPATION THERAPY. UP IN THE CHAIR THIS SHIFT. NO CARDIAC OR RESPIRATORY DISTRESS NOTED. AT THE BEDSIDE. WILL CONTINUE TO MONITOR.
[2019-03-11 18:06] LABS: ADENOVIRUS Negative (Negative); INFLUENZA A Negative (Negative); INFLUENZA B Negative (Negative); METAPNEUMOVIRUS Negative (Negative); PARAINFLUENZA 1 Negative (Negative); PARAINFLUENZA 2 Negative (Negative); PARAINFLUENZA 3 Negative (Negative); RHINOVIRUS Negative (Negative); RSV A Negative (Negative); RSV B Negative (Negative)
[2019-03-11 22:55] VITALS: BP 116/58
--- NOTE | 2019-03-12 03:43 | NUR ---
RECEIVED PT'S CARE AT 1925; PT. ON CHAIR; RELATIVES AT BED SIDE; NO C/O PAIN; DURING ASSESSMENT PT. AOX4; NO C/O PAIN; ST. SLEEPING COMFORTABLE OVER RECLINER; RECLINER PROVIDED FOR ; EDUCATED ABOUT FALL PREVENTION; ST. UNDERSTANDING; BS 152 AT HS; REFUSED SHORT TERM INSULING; ABLE TO REST A FEW HOURS WITH EYES CLOSE DURING THE NIGHT; AT 0320 REQUESTED COFFEE; REMAINED FLUID RESTRICTION; ASSESSMENT CHARGED; FOLLOWING POC; WILL PASS ON REPORT.
[2019-03-12 04:13] VITALS: BP 130/57
[2019-03-12 05:14] LABS: CALCIUM 9.1 mg/dL (8.5-10.1); PHOSPHORUS 3.9 mg/dL (2.5-4.9); POTASSIUM 3.9 mmol/L (3.5-5.1)
[2019-03-12 07:35] VITALS: BP 120/82
[2019-03-12] MEDS ORDERED: FLOMAX0.4 MG PO (13:54)
[2019-03-12] MEDS ORDERED: PROTONIX40 M1 PO (13:54)
[2019-03-12] MEDS ORDERED: CARDIZEM CD240 MG PO (13:54)
[2019-03-12] MEDS ORDERED: ATENOLOL 50MG T50 M1 PO (13:54)
[2019-03-12] MEDS ORDERED: CEFDINIR300 MG PO (13:54)
[2019-03-12] MEDS ORDERED: MUCINEX600 MG PO (13:54)
[2019-03-12] MEDS ORDERED: PREDNISONE 10 M10 MG PO (13:55)
[2019-03-12] MEDS ORDERED: PRADAXA75 MG PO (13:55)
[2019-03-12 14:06] VITALS: BP 101/51
--- NOTE | 2019-03-12 15:33 | NUR ---
ASSUMED CARE OF PATIENT AT 0700. PATIENT IS A&O X 4. PATIENT ON 2000 ML FLUID RESTRICTION AND ENCOURAGED TO CONTINUE THIS AT HOME. PATIENT IS AFIB/FLUTTER ON THE MONITOR. PATIENT HAS A NG CATHETER IN PLACE. PATIENT SEEN BY ID, PULM, NEPH AND CARDIO. PATIENT DISCHARGED HER HOSPITALIST. NEW SCRIPTS WERE GIVEN TO THE PATIENT. DISCHARGE PAPERWORK REVIEWED WITH BOTH PATIENT AND AND TOLD TO MAKE FOLLOW UP APPOINTMENTS WITH PCP, PULM AND UROLOGY. PATIENT WAS SENT HOME WITH NG CATHETER AND LEG BAG WAS PLACED AND INSTRUCTIONS GIVEN TO PATIENT AND . THEY WERE INSTRUCTED TO KEEP TRACK OF OUTPUT AND GIVEN INFORMATION AT F/U WITH UROLOGY. PATIENT WAS VERY EAGER TO GO HOME. PATIENT TAKEN VIA W/C TO EXIT ALONG WITH . PATIENT STATES THAT HE FEELS BETTER THAN HE DID ON ADMISSION. IV AND TELE REMOVED.
[2019-03-12 21:07] LABS: ADENOVIRUS Negative (Negative); INFLUENZA A Negative (Negative); INFLUENZA B Negative (Negative); METAPNEUMOVIRUS Negative (Negative); PARAINFLUENZA 1 Negative (Negative); PARAINFLUENZA 2 Negative (Negative); PARAINFLUENZA 3 Negative (Negative); RHINOVIRUS Negative (Negative); RSV A Negative (Negative); RSV B Negative (Negative)
--- NOTE | 2019-03-18 18:58 | HC ---
[facility] [place] [address] CONSULTATION Name: EVELYN MEEKS Room #: 216-[facility] IN M.R.#: [id number] Admission: 03/08/19 ������������������ Attend Phys: Malik Leonard MD Discharge: 03/12/19 ������������������ Date of : 40 Report #: [id number] THIS REPORT FOR: //name// CC: FAM unknown Malik Leonard DATE OF SERVICE: 03/08/2019 TYPE OF REPORT: Pulmonary consultation. PRIMARY CARE PHYSICIAN: Roney Peraza M.D. REFERRAL PHYSICIAN: Malik Leonard M.D. REASON FOR REFERRAL: Dyspnea. HISTORY OF PRESENT ILLNESS: The patient is a 78-year-old white male with chronic lung disease, presents to the ED with decreasing saturations, confusion, lethargy. Pulmonary consultation was requested. The patient is known to the Pulmonary service. He is known to this physician. He has severe COPD with chronic hypoxic respiratory failure. He is normally on 5-6 liters of O2. He was in his usual state of health until the day prior to presentation. Family noticed that he has been more lethargic, more confused. Saturation at home was said to be low with a normal. When he was seen in the Emergency Room, he appears to be more dyspneic, dusky in appearance. Chest x-ray on admission shows no significant changes, he has chronic bilateral interstitial changes and calcifications involving the left diaphragm. Otherwise, the patient denies any recent febrile illness, chest pain or productive cough. PAST MEDICAL HISTORY: As mentioned above, COPD, severe impairment with a baseline FEV1 of 1.27 liter, 47% predicted; chronic hypoxic respiratory failure, requiring 5 liters of O2; atrial fibrillation; severe aortic stenosis and he is being considered for possible TAVR repair in [facility]; a recent echocardiogram showed ejection fraction 65%; chronic diastolic heart failure; chronic lower extremity edema; chronic dyspnea; atrial fibrillation with flutter; diabetes mellitus type 2; dyslipidemia; gout; hypertension and past history of pneumonia. PAST SURGICAL HISTORY: Notable for cholecystectomy. [facility] [address] [place] [address] CONSULTATION Name: CONSTANTIONEVELYN ODELL Room #: 216-[facility] IN M.R.#: [id number] Admission: 03/08/19 ������������������ Attend Phys: Malik Leonard MD Discharge: 03/12/19 ������������������ Date of : 40 Report #: [id number] ALLERGIES: To DIAZEPAM, reactions unspecified. HOME MEDICATIONS: List reviewed and is in the MAR. He is also on Advair, Spiriva, and Xopenex. He is on 5 liters of O2. FAMILY HISTORY: Notable for mother at the age of 70. Father at the age of 70, reasons not specified. SOCIAL HISTORY: He is , in fact, his is in the hospital, being evaluated for possible GI bleed. The patient has smoked about 2 packs a day for 20 years, quit in 1992. He drinks socially. He drinks 1-2 cans of beer per day. REVIEW OF SYSTEMS: As mentioned above, otherwise 10-point system review negative. PHYSICAL EXAMINATION: GENERAL: Now more awake, somewhat confused, mild distress. VITAL SIGNS: Temperature maximum 101.6 degrees Fahrenheit, pulse is 90, respiratory rate is 18, blood pressure 123/58 mmHg and saturation 94%. HEENT: Normocephalic and atraumatic. NECK: Supple, without any lymphadenopathy or thyromegaly. CHEST: Breath sounds are decreased bilaterally with mild expiratory wheezes. CARDIOVASCULAR: Normal S1 and S2. Irregularly irregular. No obvious murmurs or gallop. Pulses are 2+/4+ bilaterally. ABDOMEN: Soft and nontender. No organomegaly or masses felt. GENITOURINARY: Deferred. RECTAL: Deferred. EXTREMITIES: Trace edema bilaterally. No cyanosis or clubbing. RADIOLOGICAL DATA: Chest x-ray as mentioned above. CT head was grossly unremarkable for any acute intracranial hemorrhage. Patchy low attenuation is noted in the bilateral periventricular and subcortical white matter, possibly related to chronic small vessel ischemic changes. EKG shows atrial fibrillation. LABORATORY DATA: BNP is 1220. Procalcitonin level is 0.31. Electrolytes: Sodium 137, potassium 3.2, chloride 99, CO2 is 33, BUN is 23 and creatinine 1.8. Liver enzymes are mildly abnormal. WBC 7600, hemoglobin is 9.8 and platelets are normal. Arterial blood gas revealed pH 7.45, pCO2 of 42, pO2 of 68 and on 6 liters of O2. Of note, baseline creatinine appears to be anywhere from 2-1.5. IMPRESSION: 1. Encephalopathy in this 78-year-old white male with febrile illness. Sepsis is suspected. Source is unclear but cannot rule out respiratory tract [address] [address] CONSULTATION Name: EVELYN MEEKS Room #: [address] [place] [address] IN M.R.#: [id number] Admission: 03/08/19 ������������������ Attend Phys: Malik Leonard MD Discharge: 03/12/19 ������������������ Date of : 40 Report #: [id number] infection, urinary tract infection. 2. Rdwpu-rh-dlawbjs hypoxic respiratory failure. According to the patient, he does not believe he has chronic obstructive pulmonary disease, though records from the office suggest that he does. He has chronic obstructive lung disease with a baseline FEV1 of 1.27 liters, 47% predicted. The patient has a moderate exacerbation. 3. Chronic respiratory failure, on 5 liters of O2 chronically. 4. Chronic kidney disease. 5. Mildly elevated troponin. 6. Permanent atrial fibrillation. 7. Severe aortic stenosis. 8. Kyrrw-iu-tgaanxl diastolic heart failure. 9. Pulmonary hypertension due to pulmonary impairment and valvular heart disease. 10. Diabetes mellitus type 2. 11. Anemia of chronic disease. 12. Medical directive, he desires a full code blue. RECOMMENDATIONS: Agree with current treatment plans including corticosteroids, broad-spectrum antibiotics, bronchodilators. DVT and GI prophylaxis recommended. Wean O2 for saturation at 90%. Thank you for this consultation. ��������������������������������������������� <ELECTRONICALLY SIGNED> ���������������������������������������� By: Stiven Escoto MD ��������������������������������������������� 03/18/19 1858 [id number] Stiven Escoto MD /nt
== END 2019-03-12 14:40 | disposition short-term general hospital (02) | DRG 871 ==
LOC: ER 22:42 → EROBS 03-08 01:14 → 2N 03-08 01:14
PROVIDERS: Hospitalist; Internal Medicine; Nurse Practitioner; Specialist; Student in an Organized Health Care Education/Training Program; ADMIT Internal Medicine
DX: A41.9 Sepsis, unspecified organism (principal); J96.21 Acute and chronic respiratory failure with hypoxia; I50.33 Acute on chronic diastolic (congestive) heart failure; G93.41 Metabolic encephalopathy; I13.0 Hypertensive heart and chronic kidney disease with heart failure and stage 1 through stage 4 chronic kidney disease, or unspecified chronic kidney disease; N17.9 Acute kidney failure, unspecified; J44.1 Chronic obstructive pulmonary disease with (acute) exacerbation; D50.9 Iron deficiency anemia, unspecified; R65.20 Severe sepsis without septic shock; E78.5 Hyperlipidemia, unspecified; E87.6 Hypokalemia; I27.20 Pulmonary hypertension, unspecified; N18.9 Chronic kidney disease, unspecified; I48.2 Chronic atrial fibrillation; R33.9 Retention of urine, unspecified; D63.8 Anemia in other chronic diseases classified elsewhere; M10.9 Gout, unspecified; I35.0 Nonrheumatic aortic (valve) stenosis; E11.22 Type 2 diabetes mellitus with diabetic chronic kidney disease; Z90.49 Acquired absence of other specified parts of digestive tract; Z99.81 Dependence on supplemental oxygen; Z79.84 Long term (current) use of oral hypoglycemic drugs; Z88.8 Allergy status to other drugs, medicaments and biological substances; Z87.891 Personal history of nicotine dependence; Z82.49 Family history of ischemic heart disease and other diseases of the circulatory system
CPT/HCPCS: 10081

== ENCOUNTER 2019-03-26 11:08 | Emergency (ER) | payer OTHER ==
[~2019-03-26] VITALS: Ht 182.9 cm; Wt 104.3 kg
[~2019-03-26 11:08] MED LIST changes: +ATENOLOL 50MG T50 M1 PO; +CARDIZEM CD240 MG PO; +CEFDINIR300 MG PO; +CENTRUM SILVER1 EAC2 PO; +FLOMAX0.4 MG PO; +IRON325 PO; +MUCINEX600 MG PO; +PREDNISONE 1 MG1 M1 PO; +PROTONIX40 M1 PO; +TOUJEO SOL300 UNIT/1 SUBQ; +VENTOLIN HFA 1818 GM INH; +VITAMIN B-12500 MCG PO
[2019-03-26 11:47] LABS: ABSOLUTE NEUTROPHILS 5.1 thou/uL (1.4-8.2); BASOPHILS 1.2 % (0.0-2.0); EOSINOPHILS 0.1 % (0.0-3.0); HEMATOCRIT 31.8 % (42.0-52.0); HEMOGLOBIN 10.4 gm/dL (14.0-18.0); MCH 28.8 pg (26.0-34.0); MCHC 32.8 g/dL (28.0-37.0); MCV 87.8 fL (80.0-100.0); MONOCYTES 8.1 % (1.0-8.0); PLATELET COUNT 141 thou/uL (150-400); POLYS 80.6 % (36.0-66.0); RBC 3.63 mil/uL (4.50-6.00); RDW 19.7 % (10.5-14.5); WBC 6.4 thou/uL (4.0-11.0)
[2019-03-26 11:50] LABS: CREATININE 1.6 mg/dL (0.7-1.3); POTASSIUM 4.3 mmol/L (3.5-5.1)
[2019-03-26 11:56] LABS: ALBUMIN 2.8 g/dL (3.4-5.0); TOTAL BILIRUBIN 0.5 mg/dL (<0.1-1.0)
[2019-03-26 12:41] LABS: ANISOCYTOSIS 2+; OVALOCYTES FEW; POLYCHROMASIA OCCASIONAL
[2019-03-26 14:11] LABS: URINE BILIRUBIN NEGATIVE (Negative); URINE BLOOD 1+ (Negative); URINE CLARITY CLEAR; URINE COLOR YELLOW; URINE GLUCOSE-RANDOM* NEGATIVE (Negative); URINE KETONES NEGATIVE (Negative); URINE LEUKOCYTES-REFLEX TRACE (Negative); URINE NITRITE-REFLEX NEGATIVE (Negative); URINE PROTEIN (DIPSTICK) 2+ (Negative); URINE UROBILINOGEN 0.2 E.U./dl (0.2-1.0)
[2019-03-26 14:35] LABS: BACTERIA-REFLEX 1-9 Few /HPF (None Seen); SQUAMOUS None Seen /LPF (0-3); URINE RBC 0-2 Rare /HPF (0-2); URINE WBC-REFLEX 0-5 Rare /HPF (0-5)
[2019-03-26 14:36] LABS: CASTS None Seen /LPF (None Seen); CRYSTALS None Seen /LPF (None Seen)
[2019-03-26 15:09] VITALS: BP 128/72
--- NOTE | 2019-03-27 13:31 | EKG ---
[place] [address] [facility] [place] [address] ELECTROCARDIOGRAM REPORT Name: EVELYN MEEKS [id number] ������������������ Admission: 03/26/19 ������������������ Attend Phys: Discharge: 03/26/19 ������������������ Date of : 40 Report #: [id number] ����������������������������������������������������������������� [id number] THIS REPORT FOR: //name// [facility] ED Test Date: 2019-03-26 Test Time: 11:24:41 Pat Name: EVELYN MEEKS Department: Room: Gender: M Director Account Management: AJ : 1940 Requested By: Tia Lim Order Number: [id number] MD: Gino Mckeon Measurements Intervals [place] Rate: 109 P: [place]: QRS: 51 QRSD: 84 T: 25 QT: 323 QTc: 436 Interpretive Statements Atrial fibrillation Baseline wander in lead(s) V5 Compared to ECG 03/09/2019 07:26:37 No significant changes Electronically Signed On 03-27-2019 13:31:20 CDT by Gino Mckeon [email or web address] ��������������������������������������������� <ELECTRONICALLY SIGNED> ���������������������������������������� By: Gino Mckeon MD, LOCATED WITHIN [facility] ��������������������������������������������� 03/27/19 1331 1124 1124 Gion Mckeon MD, FACC /EPI
== END 2019-03-26 14:55 | disposition home or self-care (01) ==
LOC: ER 11:08
PROVIDERS: Nurse Practitioner Family
DX: K59.00 Constipation, unspecified (principal); I13.0 Hypertensive heart and chronic kidney disease with heart failure and stage 1 through stage 4 chronic kidney disease, or unspecified chronic kidney disease; E11.22 Type 2 diabetes mellitus with diabetic chronic kidney disease; N18.9 Chronic kidney disease, unspecified; I50.9 Heart failure, unspecified; J96.10 Chronic respiratory failure, unspecified whether with hypoxia or hypercapnia; I48.91 Unspecified atrial fibrillation; J44.9 Chronic obstructive pulmonary disease, unspecified; Z87.891 Personal history of nicotine dependence; Z88.8 Allergy status to other drugs, medicaments and biological substances; Z79.4 Long term (current) use of insulin; Z86.2 Personal history of diseases of the blood and blood-forming organs and certain disorders involving the immune mechanism; Z90.49 Acquired absence of other specified parts of digestive tract

== ENCOUNTER 2019-04-08 12:43 | Inpatient (IN) | payer OTHER ==
[~2019-04-08] VITALS: Ht 182.9 cm; Wt 105.6 kg
--- NOTE | ~2019-04-08 | HC ---
[facility] [place] [address] CONSULTATION Name: EVELYN MEEKS Room #: [facility] IN M.R.#: [id number] Admission: 04/08/19 ������������������ Attend Phys: Ramon Best Discharge: 04/11/19 ������������������ Date of : 40 Report #: [id number] THIS REPORT FOR: //name// CC: FAM unknown Ramon Best REASON FOR CONSULTATION: Chronic kidney disease. REASON FOR PRESENTATION: Shortness of breath and lower extremity swelling. HISTORY OF PRESENT ILLNESS: This is a very well-known patient to me. He is a 78-year-old with past medical history of CKD, hypertension, diabetes mellitus, terminal COPD, heart failure, severe aortic stenosis with chronic respiratory failure. He presented reporting increased shortness of breath and bilateral lower extremity swelling. He also noticed that his weight has significantly gone up. He is usually utilizing 5 liters oxygen at home, but he has to tend that up to like 7 liters on his presentation. From the renal perspective, the patient is known to have chronic kidney disease. His baseline creatinine is anywhere from 1.5-2 depending on his volume status. He was admitted and was followed by cardiac team, Pulmonology. Creatinine on presentation was slightly above baseline; however, this has trended down to his baseline as of today. He is being diuresed aggressively with very good response. The patient had significant improvement in his breathing. However, he still has some issues with his swelling. He is currently maintained on 100 Demadex daily. PAST MEDICAL HISTORY: 1. COPD, oxygen dependent. 2. Atrial fibrillation. 3. Heart failure. 4. Hypertension. 5. Severe aortic stenosis. ALLERGIES: DIAZEPAM. SOCIAL HISTORY: and lives with his . REVIEW OF SYSTEMS: GENERAL: Significant for shortness of breath. CARDIOVASCULAR: Shortness of breath and edema. PULMONARY: No cough or hemoptysis. GASTROINTESTINAL: No nausea or vomiting. GENITOURINARY: No frequency or urgency. NEUROLOGICAL: No headache, no dizziness. SKIN: No rash or ulcerations. HOME MEDICATIONS: 1. Flomax. [facility] [address] [place] [address] CONSULTATION Name: MEEKSEVELYN Santiago ODELL Room #: 212-[facility] IN M.R.#: [id number] Admission: 04/08/19 ������������������ Attend Phys: Ramon Best Discharge: 04/11/19 ������������������ Date of : 40 Report #: [id number] 2. Pradaxa. 3. Atenolol. 4. Diltiazem. 5. Potassium. 6. Torsemide. PHYSICAL EXAMINATION: GENERAL: The patient is alert, oriented, in no apparent distress. He is on 6 liters by nasal cannula. VITAL SIGNS: Pulse rate is 87, blood pressure is 129/86. HEAD AND NECK: No jugular venous distention. CHEST: Decreased air entry bilaterally. CARDIOVASCULAR: Distant with no rub detected. ABDOMEN: Soft. LOWER EXTREMITIES: +1 edema. LABORATORY DATA: Reviewed. Blood gas from few days ago revealed a pH of 7.37. Chemistry revealed BUN of 56 and a creatinine of 1.8. Chest x-ray from 04/10/2019, some improvement. ASSESSMENT AND IMPRESSION: 1. Chronic kidney disease. 2. Terminal chronic obstructive pulmonary disease. 3. Heart failure. 4. COR pulmonale. 5. Severe aortic stenosis. 6. Pulmonary hypertension. 7. Atrial fibrillation. 8. Chronic kidney disease. PLAN: 1. Stable from the renal perspective, creatinine is trending down appropriately. Continue with the current dose of torsemide. 2. Avoid salt. 3. Fluid restriction. 4. Continue to address his other comorbid conditions. ��������������������������������������������� ���������������������������������������� By: ��������������������������������������������� 0821 [id number] Dariusz Fontenot MD /nt
[2019-04-08 12:44] VITALS: BP 127/50
[2019-04-08 13:40] LABS: BE(vivo) 1.7 mmol/L (-2 to +3); HCO3 27.3 mmol/L (22.0-26.0); PCO2 47.6 mmHg (35.0-45.0); PO2 89.3 mmHg (80.0-100.0); pH 7.377 (7.360-7.450); sO2 96.6 % (92.0-98.0)
[2019-04-08 13:45] LABS: ABSOLUTE NEUTROPHILS 6.5 thou/uL (1.4-8.2); BASOPHILS 0.8 % (0.0-2.0); EOSINOPHILS 2.9 % (0.0-3.0); HEMATOCRIT 29.8 % (42.0-52.0); HEMOGLOBIN 9.6 gm/dL (14.0-18.0); MCH 28.2 pg (26.0-34.0); MCHC 32.2 g/dL (28.0-37.0); MCV 87.6 fL (80.0-100.0); MONOCYTES 4.5 % (1.0-8.0); PLATELET COUNT 325 thou/uL (150-400); POLYS 80.8 % (36.0-66.0); RDW 19.3 % (10.5-14.5)
[2019-04-08 13:53] LABS: CALCIUM 9.1 mg/dL (8.5-10.1); CREATININE 1.8 mg/dL (0.7-1.3); POTASSIUM 4.8 mmol/L (3.5-5.1)
[2019-04-08 14:03] LABS: TOTAL BILIRUBIN 0.1 mg/dL (<0.1-1.0); TOTAL PROTEIN 6.6 g/dL (6.4-8.2); TROPONIN-I 0.06 ng/mL (<0.06)
[2019-04-08 14:57] VITALS: BP 125/66
--- NOTE | 2019-04-08 15:52 | EKG ---
[address] [address] ELECTROCARDIOGRAM REPORT Name: EVELYN MEEKS Room #: 170-7 ADM IN M.R.#: [id number] ������������������ Admission: 04/08/19 ������������������ Attend Phys: Ramon Best Discharge: ������������������ Date of : 40 Report #: [id number] ����������������������������������������������������������������� [id number] THIS REPORT FOR: //name// [facility] ED Test Date: 2019-04-08 Test Time: 13:12:44 Pat Name: EVELYN MEESK Department: Room: 170 Gender: M 3D Artist: radha : 1940 Requested By: Jo-Ann Bravo Order Number: [id number] MD: Gino Mckeon Measurements Intervals [place] Rate: 70 P: [place]: QRS: 75 QRSD: 89 T: 8 QT: 389 QTc: 420 Interpretive Statements Incomplete tracing missing V4 Atrial fibrillation Baseline wander in lead(s) V2,V3,V4 Compared to ECG 03/26/2019 11:24:41 No significant changes Electronically Signed On 04-08-2019 15:52:35 CDT by Gino Mckeon [email or web address] ��������������������������������������������� <ELECTRONICALLY SIGNED> ���������������������������������������� By: Gino Mckeon MD, [facility] ��������������������������������������������� 04/08/19 155 11 11 Gino Mckeon MD, [facility] /EPI
[2019-04-08 16:07] VITALS: BP 125/66
[2019-04-08 16:20] LABS: % SATURATION 18 % (20-39); IRON 46 ug/dL (65-175); TIBC 261 ug/dL (250-450)
--- NOTE | 2019-04-08 18:13 | NUR ---
PT ADMITTED FROM ER FOR CHF. PT ALERT AND ORIENTED X4. DENIES PAIN AND SOA. VSS. AT BEDSIDE. ADMISSION COMPLETED. MEDS GIVEN. UNIT EDUCATION COMPLETED. BS WNL. PT HAS STEADY GAIT. ABT TO POC. NO DISTRESS NOTED.
[2019-04-08 20:00] VITALS: BP 119/84
[2019-04-09] VITALS: BP 111/75
[2019-04-09 04:00] VITALS: BP 118/53
[2019-04-09 05:42] LABS: ANION GAP 6 mmol/L (7-16); BUN 27 mg/dL (7-18); CHLORIDE 100 mmol/L (98-107); CO2 29 mmol/L (21-32); GLUCOSE 221 mg/dL (74-106); PHOSPHORUS 3.9 mg/dL (2.5-4.9); POTASSIUM 5.4 mmol/L (3.5-5.1); SODIUM 135 mmol/L (136-145); TROPONIN-I <0.06 ng/mL (<0.06)
[2019-04-09 05:53] LABS: CALCIUM 9.2 mg/dL (8.5-10.1)
--- NOTE | 2019-04-09 05:57 | NUR ---
ASSUME CARE 1900. PT/VITALS STABLE. DENIES ANY PAIN AT THIS TIME. UP AD IVANNA. TOLERATNG ACTIVITY WELL WITH SOME SOA NOTED. SOUSE IN WITH FAMILY. ASSESSMENT AAS CHARTED. PROGRESSING SLOWLY WITH POC. ADEQUATE REST NOTED. AFIB ON MONITOR WITH HR CONTROLLED AT REST. PLAN IS TO DIURESE PATIENT AND TREAT COPD EXACERBATION WITH SEROIDS/BREATHING TREATMENTS. WILL CONTINUE TO MONITOR AND FOLLOW WITH POC
--- NOTE | 2019-04-09 10:38 | NUR ---
EXPLAINED TO PATIENT AND PURPOSE OF O.T. AND WHAT EVALUATION WOULD CONSIST OF. PATIENT AND STATED THAT PATIENT HAS NO ISSUES WITH ADL. EXPLAINED TO BOTH THAT ASSESSING PATIENT'S OXYGEN NEEDS DURING ADL WOULD BE PART OF ASSESSMENT. ASKED WHO THE PHYSICIAN WAS THAT ORDERED O.T. EVALUATION. INFORMED THEM THAT IS WAS EILEEN LEWIS NP. STATED THAT THEY WERE DISSATISFIED THAT MS. LEWIS DID NOT INFORM THEM OF THIS ORDER. THE PATIENT THEN STATED EMPHATICALLY THAT HE IS REFUSING THE O.T. ASSESSMENT ALTOGETHER. INFORMED ISAI.
--- NOTE | 2019-04-09 11:02 | EKG ---
[address] [address] ELECTROCARDIOGRAM REPORT Name: EVELYN MEEKS Room #: 212-P ADM IN M.R.#: [id number] ������������������ Admission: 04/08/19 ������������������ Attend Phys: Ramon Best Discharge: ������������������ Date of : 40 Report #: [id number] ����������������������������������������������������������������� [id number] THIS REPORT FOR: //name// [facility] Test Date: 2019-04-08 Test Time: 19:27:08 Pat Name: EVELYN MEEKS Department: Room: 212 Gender: M Signal Maintenance Technician: Tonya MESSER : 1940 Requested By: Gino Mckeon Order Number: [id number] MD: Gino Mckeon Measurements Intervals [place] Rate: 77 P: [place]: QRS: 65 QRSD: 93 T: 48 QT: 374 QTc: 424 Interpretive Statements Atrial fibrillation Compared to ECG 04/08/2019 13:12:44 No significant changes Electronically Signed On 04-09-2019 11:02:08 CDT by Gino Mckeon [email or web address] ��������������������������������������������� <ELECTRONICALLY SIGNED> ���������������������������������������� By: Gino Mckeon MD, [facility] ��������������������������������������������� 04/09/19 1102 192 26 Gino Mckeon MD, FACC /EPI
[2019-04-09 12:00] VITALS: BP 109/57
[2019-04-09 16:00] VITALS: BP 111/53
[2019-04-09 19:25] VITALS: BP 120/59
[2019-04-10 05:00] VITALS: BP 128/70
[2019-04-10 05:35] LABS: ALBUMIN 3.2 g/dL (3.4-5.0); ANION GAP 9 mmol/L (7-16); BUN 44 mg/dL (7-18); CALCIUM 9.2 mg/dL (8.5-10.1); CHLORIDE 97 mmol/L (98-107); CO2 31 mmol/L (21-32); CREATININE 2.2 mg/dL (0.7-1.3); GLUCOSE 290 mg/dL (74-106); PHOSPHORUS 4.3 mg/dL (2.5-4.9); POTASSIUM 4.2 mmol/L (3.5-5.1); SODIUM 137 mmol/L (136-145); TROPONIN-I <0.06 ng/mL (<0.06)
[2019-04-10 08:00] VITALS: BP 146/75
--- NOTE | 2019-04-10 08:15 | NUR ---
ASSUME CARE 1900. PT/VITAL STABLE. DENIES ANY PAIN. UP AD IVANNA. ASSESMENT CHARTED. PROGRESSING WELL WITH POC. AFIB WITH CONTROLLED RATE ON MONITOR., PLAN IS TO CONTINUE TO DIURESE PT AND IMPROVE RESPIRATORY PROBLMS. WILL CONTINUE TO MONITOR AND FOLLOW WITH POC
[2019-04-10 12:00] VITALS: BP 117/75
--- NOTE | 2019-04-10 14:52 | HC ---
[facility] [place] [address] CONSULTATION Name: EVELYN MEEKS Room #: [facility] IN M.R.#: [id number] Admission: 04/08/19 ������������������ Attend Phys: Ramon Best Discharge: ������������������ Date of : 40 Report #: [id number] THIS REPORT FOR: //name// CC: FAM unknown Ramon Best PRIMARY CARE PHYSICIAN: Dr. Roney Peraza. REFERRAL PHYSICIAN: Dr. Best. REASON FOR REFERRAL: Dyspnea. HISTORY OF PRESENT ILLNESS: The patient is a 78-year-old white male with severe COPD, presents with progressive dyspnea. A pulmonary consultation was requested. The patient is followed longitudinally by Dr. Shailesh Mercedes in the office. He is followed for COPD along with chronic hypoxic respiratory failure. His baseline FEV1 is around 1.27 liter, 47% predicted. He is normally on 5 liters of O2, 24 hours a day. He normally uses Ventolin HFA 2 puffs p.r.n., nebulized Xopenex q. 4 hours p.r.n., prednisone 5 mg once a day, Spiriva once a day. He was in his usual state of health until 3 days prior to presentation when he noticed increasing lower extremity edema. With increasing dyspnea along with swallowing, he presented to the Emergency Department. Otherwise, denies any recent febrile illness, chest pain, nausea, vomiting or diarrhea. He had problems with abdominal pain and constipation recently. In the ER, the patient was found to be hypoxic, requiring up to 7-8 liters of O2 with moderate lower extremity edema. PAST MEDICAL HISTORY: As mentioned above, COPD, severe impairment, chronic hypoxic respiratory failure requiring 5 liters of O2, aortic stenosis, atrial fibrillation/flutter status post ablation in 2013. Echocardiogram from 2015 showed ejection fraction of 65%, diabetes mellitus type 2, dyslipidemia, gout, hypertension, past history of pneumonia. PAST SURGICAL HISTORY: Notable for cholecystectomy. ALLERGIES: DIAZEPAM, REACTIONS NOT SPECIFIED. HOME MEDICATIONS: List reviewed in the MAR. I saw some Pradaxa for his atrial fibrillation. FAMILY HISTORY: Notable for CVA in the father. [facility] [address] [place] [address] CONSULTATION Name: EVELYN MEEKS Room #: 212-P [facility] IN M.R.#: [id number] Admission: 04/08/19 ������������������ Attend Phys: Ramon Best Discharge: ������������������ Date of : 40 Report #: [id number] SOCIAL HISTORY: The patient is , has smoked up until 1992 after having smoked 2 packs a day for 20 years. He drinks socially. REVIEW OF SYSTEMS: As mentioned above, otherwise 10-point system review negative. PHYSICAL EXAMINATION: GENERAL: He is awake, alert, in no distress. He appears mildly dyspneic. VITAL SIGNS: Temperature is 97.4 degrees Fahrenheit, pulse is 88, respiratory rate is 18, blood pressure 109/57 mmHg and saturation 96%. HEENT: Normocephalic, atraumatic. NECK: Supple, without lymphadenopathy or thyromegaly. CHEST: Breath sounds are decreased bilaterally. Mild expiratory wheezes. No obvious rales. CARDIOVASCULAR: Normal S1, S2. There are no murmurs or gallop. There is no JVD. There is no carotid bruit. Pulses are 2+/4+ bilaterally. ABDOMEN: Soft, nontender, no organomegaly or masses felt. GENITOURINARY: Deferred. RECTAL: Deferred. EXTREMITIES: Notable for 3+ bilateral lower extremity edema, no cyanosis or clubbing. NEUROLOGIC: Grossly intact. DIAGNOSTIC: Chest x-ray shows chronic interstitial changes seen in both lower lung frey. Otherwise, no new changes. LABORATORY: BNP is 2300. EKG shows atrial fibrillation. Electrolytes: Sodium 135, potassium 5.4, chloride 100, CO2 of 29, BUN is 27, creatinine is 2.0. Troponin is 0.06. Albumin 3.1. Arterial blood gas revealed pH 7.37, pCO2 of 47, pO2 of 89 on 6 liters of O2. WBC 8000, hemoglobin 9.6, platelets are normal, no evidence of bandemia, though lymphopenia is noted. Echocardiogram from 2019 showed pulmonary artery pressure at around 60 mmHg, heavily calcified aorta with severe stenosis. IMPRESSION: 1. Increasing lower extremity edema, likely due to heart failure along with cor pulmonale. 2. Chronic obstructive pulmonary disease, severe impairment. 3. Acute on chronic hypoxic hypercapnic respiratory failure, now requiring up to 7 liters of O2. 4. Severe aortic stenosis, ejection fraction 65%. There is possible plan for noninvasive aortic valve repair at [facility]. 5. Acute on chronic diastolic heart failure as mentioned above. 6. Atrial fibrillation/flutter. 7. Diabetes mellitus type 2. 8. Dyslipidemia. [address] [address] CONSULTATION Name: EVELYN MEEKS Room #: 212-P ADM IN M.R.#: [id number] Admission: 04/08/19 ������������������ Attend Phys: Ramon Best Discharge: ������������������ Date of : 40 Report #: [id number] 9. Gout. 10. Hypertension. RECOMMENDATION: We will continue bronchodilators for now. Diurese as you are. DVT and GI prophylaxis will be indicated. Wean O2 for saturation 90%. Chronic kidney disease. Empiric steroids given severe pulmonary impairment. Thank you for this consultation. ��������������������������������������������� <ELECTRONICALLY SIGNED> ���������������������������������������� By: Stiven Escoto MD ��������������������������������������������� 04/10/19 1452 1423 0521 Stiven Escoto MD /nt
--- NOTE | 2019-04-10 18:53 | NUR ---
UP IN CHAIR ALL SHIFT. PATIENT AND EAT MEALS TOGETHER AND PATIENT EATS FOOD FROM BOTH TRAYS. VERY PLESANT AND COOPERTIVE. DENIES PAIN. IV RESTARTED RIGHT FOREARM. VOIDS PER URINAL. O2 AT 6L NASAL CANNULA.
[2019-04-10 20:05] VITALS: BP 135/47
[2019-04-11 05:13] LABS: HEMATOCRIT 30.3 % (42.0-52.0); MCH 28.2 pg (26.0-34.0); MCHC 32.9 g/dL (28.0-37.0); MCV 85.5 fL (80.0-100.0); RBC 3.55 mil/uL (4.50-6.00); RDW 20.1 % (10.5-14.5); WBC 11.8 thou/uL (4.0-11.0)
[2019-04-11 05:21] VITALS: BP 140/50
[2019-04-11 05:25] LABS: CALCIUM 9.5 mg/dL (8.5-10.1); CREATININE 1.8 mg/dL (0.7-1.3); MAGNESIUM 1.9 mg/dL (1.8-2.4); POTASSIUM 3.4 mmol/L (3.5-5.1)
--- NOTE | 2019-04-11 06:08 | NUR ---
ASSUME CARE 1900. PT STABLE. DENIES ANY PAIN. BP RUNS HIGH MOSTLY. UP WITH WALKER /STB ASSIST TO BATHROOM. A/O X 1. ASSESSMENT CHARTED. PROGRESSING MODERATELY WITH POC. PLAN IS TO CONTINUE TREATING WITH ABX. WILL FOLLOW WITH POC
--- NOTE | 2019-04-11 06:20 | NUR ---
ASSUME CARE 1900. PT/VITALS STABLE. DENIES ANY PAIN. UP AD IVANNA. PROGRESSSING WELL WITH POC. ASSESSMENT CHARTED. AFIB CONTROLLED RATE. BLOOD SUGARS RUN VERY HIGH WITH STEROID ADMINISTRATION. PT ENCOURAGED TO EAT A LOT HEALTHY WITH HIS HIGH BLOOD SUGAR. PLAN IS TO CONTINUE TO DIURESE PT AND TREAT WITH STEROIDS., MONITOR BREATHING FUNCTION, MANAGE BLOOD SUGAR, AND PROMOTE HEALTH. WILL CONTINUE TO MONITOR AND FOLLOW WITH POC
[2019-04-11 07:57] VITALS: BP 129/86
[2019-04-11 11:04] VITALS: BP 143/71
[2019-04-11] MEDS ORDERED: NOVOLOG100 UNIT/1 SUBQ (12:51)
[2019-04-11] MEDS ORDERED: PREDNISONE 20 M20 MG PO (12:51)
[2019-04-11] MEDS ORDERED: LANTUS100 UNIT/M SUBQ (12:51)
[2019-04-11 13:18] VITALS: BP 143/71
== END 2019-04-11 13:47 | disposition home or self-care (01) | DRG 291 ==
LOC: ER 12:43 → 2N 14:38 → EROBS 14:38 → 2N 16:09 → ENTRNSPT 04-11 13:31 → EDTRNSPTSTS 04-11 13:33 → 2N 04-11 13:47
PROVIDERS: Internal Medicine; Nurse Practitioner Family; ADMIT Hospitalist
DX: I13.0 Hypertensive heart and chronic kidney disease with heart failure and stage 1 through stage 4 chronic kidney disease, or unspecified chronic kidney disease (principal); I50.33 Acute on chronic diastolic (congestive) heart failure; J96.21 Acute and chronic respiratory failure with hypoxia; J96.22 Acute and chronic respiratory failure with hypercapnia; N17.9 Acute kidney failure, unspecified; J44.1 Chronic obstructive pulmonary disease with (acute) exacerbation; I48.92 Unspecified atrial flutter; D68.59 Other primary thrombophilia; M10.9 Gout, unspecified; D50.9 Iron deficiency anemia, unspecified; I27.20 Pulmonary hypertension, unspecified; I27.81 Cor pulmonale (chronic); I48.2 Chronic atrial fibrillation; D63.8 Anemia in other chronic diseases classified elsewhere; E78.5 Hyperlipidemia, unspecified; I35.0 Nonrheumatic aortic (valve) stenosis; N18.9 Chronic kidney disease, unspecified; E11.22 Type 2 diabetes mellitus with diabetic chronic kidney disease; Z88.8 Allergy status to other drugs, medicaments and biological substances; Z99.81 Dependence on supplemental oxygen; Z90.49 Acquired absence of other specified parts of digestive tract; Z79.899 Other long term (current) drug therapy; Z79.4 Long term (current) use of insulin; Z87.891 Personal history of nicotine dependence; Z79.01 Long term (current) use of anticoagulants
CPT/HCPCS: 10081

== ENCOUNTER 2019-05-01 21:16 | Inpatient (IN) | payer OTHER ==
[~2019-05-01] VITALS: Ht 182.9 cm; Wt 101.6 kg
[~2019-05-01 21:16] MED LIST changes: +LANTUS100 UNIT/M SUBQ
[2019-05-01 22:03] LABS: BE(vivo) -0.1 mmol/L (-2 to +3); HCO3 27.8 mmol/L (22.0-26.0); PCO2 60.7 mmHg (35.0-45.0); PO2 160.5 mmHg (80.0-100.0); sO2 98.8 % (92.0-98.0)
[2019-05-01 22:06] LABS: pH 7.279 (7.360-7.450)
[2019-05-01 22:26] LABS: ABSOLUTE NEUTROPHILS 10.7 thou/uL (1.4-8.2); BASOPHILS 0.7 % (0.0-2.0); EOSINOPHILS 1.1 % (0.0-3.0); HEMATOCRIT 35.6 % (42.0-52.0); HEMOGLOBIN 11.7 gm/dL (14.0-18.0); LYMPHOCYTES 21.3 % (24.0-44.0); MCH 28.4 pg (26.0-34.0); MCHC 32.9 g/dL (28.0-37.0); MCV 86.5 fL (80.0-100.0); MONOCYTES 5.2 % (1.0-8.0); PLATELET COUNT 378 thou/uL (150-400); POLYS 71.7 % (36.0-66.0); RBC 4.12 mil/uL (4.50-6.00); RDW 20.4 % (10.5-14.5); WBC 14.9 thou/uL (4.0-11.0)
[2019-05-01 22:34] LABS: CALCIUM 9.1 mg/dL (8.5-10.1); CREATININE 1.5 mg/dL (0.7-1.3); POTASSIUM 3.9 mmol/L (3.5-5.1)
[2019-05-01 22:39] LABS: INR 1.1
[2019-05-01 22:44] LABS: ALBUMIN 3.1 g/dL (3.4-5.0); MAGNESIUM 1.6 mg/dL (1.8-2.4); TOTAL BILIRUBIN 0.3 mg/dL (<0.1-1.0); TROPONIN-I 0.06 ng/mL (<0.06)
[2019-05-01 23:13] LABS: BE(vivo) 1.8 mmol/L (-2 to +3); HCO3 27.2 mmol/L (22.0-26.0); PCO2 45.9 mmHg (35.0-45.0); PO2 71.4 mmHg (80.0-100.0); sO2 94.1 % (92.0-98.0)
[2019-05-01 23:31] VITALS: BP 100/64
[2019-05-02] MEDS ORDERED: NOVOLOG100 UNIT/1 SUBQ (00:38)
[2019-05-02] MEDS ORDERED: LANTUS SUBQ (00:39)
[2019-05-02] MEDS ORDERED: PREDNISONE 5 MG5 M1 PO (00:40)
[2019-05-02 04:00] VITALS: BP 113/74
--- NOTE | 2019-05-02 04:02 | NUR ---
PT ARRIVED ON UNIT FROM ER AT 0015. COMES FROM HOME WITH . ADMITTED WITH COPD EXACERBATION AND CHF. ON BIBPAP. VOIDING PER URINAL. DENIES PAIN. RESTING COMFORTABLY. NO NEEDS VOICED. CALL LIGHT WITHIN REACH. WILL CONTINUE TO PROVIDE FREQUENT OBSERVATION.
[2019-05-02 04:49] LABS: CALCIUM 9.3 mg/dL (8.5-10.1); CREATININE 1.5 mg/dL (0.7-1.3); MAGNESIUM 1.7 mg/dL (1.8-2.4); POTASSIUM 4.3 mmol/L (3.5-5.1)
[2019-05-02 07:48] VITALS: BP 117/65
[2019-05-02 11:09] VITALS: BP 104/50
--- NOTE | 2019-05-02 12:04 | NUR ---
ASSESSMENT: CM REVIEWED CHART AND MET WITH PATIENT AT THE BEDSIDE. PT WAS ADMITTED FOR CP/CHF/COPD. PT REPORTS THAT HE LIVES IN A HOUSE WITH HIS . PT REPORTS A COUPLE OF STEPS TO ENTER WITH HANDRAILS. PT REPORTS ONCE INSIDE ALL HIS NEEDS ARE ON ONE LEVEL. PT REPORTS THEY DO HAVE ABOUT 14 STEPS WITH HANDRAILS TO THE BASEMENT BUT STATES HE RARELY GOES DOWN THERE. PT REPORTS AMBULATING INDEPENDENTLY. PT REPORTS HAVING OXYGEN ARRANGED AT HOME THROUGH [facility] AND BASELINE IS ABOUT 5-6L. PT REPORTS BEING INDEPENDENT WITH ADLS. PT REPORTS HE HAD HH IN THE PAST AND WAS OFFENDED HE STATES BECAUSE HE DOES NOT NEED THAT. PT STATES HE IS NOT INTERESTED IN HH AND PLANS ON RETURNING HOME WITH NO NEEDS. CM WILL CONTINUE TO FOLLOW TO ASSIST NEEDED.
[2019-05-02 15:29] VITALS: BP 105/52
[2019-05-02 19:29] VITALS: BP 95/56
--- NOTE | 2019-05-02 20:13 | NUR ---
PT WEARS O2 5-6L BASELINE..HE HAD LARGE AMOUNT OF THICK PRODUCTIVE SPUTUM DURING DINNER..HE INITALLY STATED HE HAD PAINFUL SWALLOWING BUT AFTER HE EXPECTRATED SPUTUM HE STATED HE FELT FINE..
--- NOTE | 2019-05-03 04:22 | NUR ---
Patient increased from 6LNC to 7LNC per patient request. Patient has had a cough with some sputum production, sputum not observed. 2+ edema in the feet and ankles. Patient's legs appear edematous too. Patient hasn't been compliant with fall precautions. The patient doesn't want the gait belt being used on him, and becomes frustrated with the bed alarm being turned on. Fall precautions and policy reiterated to the patient, patient more understanding. Patient instructed to call out if he needs to walk to the bathroom for anything. Progress toward plan of care at this time.
[2019-05-03 04:35] VITALS: BP 103/58
[2019-05-03 05:52] LABS: CALCIUM 9.4 mg/dL (8.5-10.1); CREATININE 1.9 mg/dL (0.7-1.3); POTASSIUM 4.1 mmol/L (3.5-5.1)
[2019-05-03 07:14] VITALS: BP 102/55
--- NOTE | 2019-05-03 08:59 | EKG ---
[address] [place] [address] ELECTROCARDIOGRAM REPORT Name: EVELYN MEEKS Room #: 352-P ADM IN M.R.#: [id number] ������������������ Admission: 05/01/19 ������������������ Attend Phys: Kwabena Peoples MD Discharge: ������������������ Date of : 40 Report #: [id number] ����������������������������������������������������������������� [id number] THIS REPORT FOR: //name// [facility] ED Test Date: 2019-05-01 Test Time: 21:59:07 Pat Name: EVELYN MEEKS Department: Room: 352 P Gender: M Senior Civil Engineer: Renate Louis : 1940 Requested By: Chapincito Chong Order Number: [id number] MD: Gino Mckeon Measurements Intervals [place] Rate: 135 P: [place]: QRS: 63 QRSD: 97 T: 63 QT: 337 QTc: 506 Interpretive Statements Atrial fibrillation Low voltage, extremity leads Borderline prolonged QT interval No previous ECG available for comparison Electronically Signed On 05-03-2019 8:59:44 CDT by Gino Mckeon [email or web address] ��������������������������������������������� <ELECTRONICALLY SIGNED> ���������������������������������������� By: Gino Mckeon MD, [facility] ��������������������������������������������� 05/03/19 0859 2159 2159 Gino Mckeon MD, FACC /EPI
[2019-05-03 11:48] VITALS: BP 111/57
[2019-05-03 15:44] VITALS: BP 109/51
--- NOTE | 2019-05-03 17:45 | NUR ---
ASSUMED PATIENT CARE AT 0700. A/O X4. SOB WITH EXERTION. ON 6L/NC NOW. UP AD IVANNA. NO DISTRESS NOTED. PROGRESSING TOWARDS POC GOALS.
[2019-05-03 19:14] VITALS: BP 103/59
--- NOTE | 2019-05-04 03:46 | NUR ---
PATIENT ALERT AND ORIENTED. PATIENT UP AD IVANNA. PATIENT ON 6LNC/DAY 7LNC HS 5L NC IS BASELINE. PATIENT TOLERATED THE BIPAP FOR 4HOURS HS. PATIENTS LBM WAS THE 4TH. PATIENT IS AFIB ON TELE. PATIENT IS A DAILY WT. PATIENT IS 1500ML FLUID RESTRICTION. PATIENT DENIES PAIN. PATIENTS FEET HAVE BEEN ELEVATED SWELLING HAS IMPROOVED. PATIENT IS PENDING POSSIBLE DC TODAY. PATIENT IS RESTING COMFORTABLY IN BED. WCM. PATIENT IS PRGRESSING TO GOALS.
[2019-05-04 04:44] VITALS: BP 123/79
[2019-05-04 05:59] LABS: HEMATOCRIT 31.6 % (42.0-52.0); HEMOGLOBIN 10.3 gm/dL (14.0-18.0); MCH 27.9 pg (26.0-34.0); MCHC 32.5 g/dL (28.0-37.0); MCV 85.9 fL (80.0-100.0); RBC 3.68 mil/uL (4.50-6.00); WBC 11.8 thou/uL (4.0-11.0)
[2019-05-04 06:21] LABS: ALBUMIN 2.8 g/dL (3.4-5.0); CALCIUM 9.7 mg/dL (8.5-10.1); CREATININE 1.9 mg/dL (0.7-1.3); MAGNESIUM 2.2 mg/dL (1.8-2.4); POTASSIUM 3.6 mmol/L (3.5-5.1); TOTAL BILIRUBIN 0.3 mg/dL (<0.1-1.0)
[2019-05-04 07:24] VITALS: BP 113/64
[2019-05-04 10:50] VITALS: BP 106/52
--- NOTE | 2019-05-04 11:56 | NUR ---
Assumed patient care at 0715. IV diuretic changed to PO. Patient cleared for discharge by cardiology and hospitalist. Patients blood sugar before lunch was 412. Dr. Peoples notified. Patient and spouse anxiously waiting to go home. Patients breathing is much better. Electrolytes wnl. waiting for DC orders.
--- NOTE | 2019-05-04 13:10 | NUR ---
ON-GOING ASSESSMENT: CM REVIEWED CHART AND MET WITH PATIENT AT THE BEDSIDE. PT IS LIKELY DISCHARGE HOME TODAY WITH NO NEEDS. PT DECLINES THE NEED FOR HH. PTS IS AT THE BEDSIDE AND IS ABLE TO PROVIDE TRANSPORTATION HOME. PT REPORTS THAT HE HAS HIS HOME OXYGEN ARRANGED AND HAS NO NEEDS FROM CM.
[2019-05-04] MEDS ORDERED: METOLAZONE 5 MG5 MG PO (13:26)
[2019-05-04] MEDS ORDERED: MUCINEX600 MG PO (13:26)
[2019-05-04] MEDS ORDERED: PREDNISONE 10 M10 MG PO (13:28)
[2019-05-04] MEDS ORDERED: LEVAQUIN 750 M750 MG PO (13:29)
[2019-05-04 13:35] VITALS: BP 106/52
== END 2019-05-04 15:32 | disposition home or self-care (01) | DRG 871 ==
LOC: ER 21:16 → 3W 23:02 → EROBS 23:02 → 3W 05-02 00:24
PROVIDERS: Emergency Medicine; Internal Medicine; Nurse Practitioner Acute Care; Nurse Practitioner Family; ADMIT Hospitalist
PROC: 5A09357 Assistance with Respiratory Ventilation, Less than 24 Consecutive Hours, Continuous Positive Airway Pressure (ICD-10-PCS; principal; 2019-05-01)
PROC: 5A09357 Assistance with Respiratory Ventilation, Less than 24 Consecutive Hours, Continuous Positive Airway Pressure (ICD-10-PCS; 2019-05-02)
PROC: 5A09357 Assistance with Respiratory Ventilation, Less than 24 Consecutive Hours, Continuous Positive Airway Pressure (ICD-10-PCS; 2019-05-04)
DX: A41.9 Sepsis, unspecified organism (principal); I50.33 Acute on chronic diastolic (congestive) heart failure; J96.21 Acute and chronic respiratory failure with hypoxia; J18.9 Pneumonia, unspecified organism; I13.0 Hypertensive heart and chronic kidney disease with heart failure and stage 1 through stage 4 chronic kidney disease, or unspecified chronic kidney disease; J44.1 Chronic obstructive pulmonary disease with (acute) exacerbation; D68.59 Other primary thrombophilia; E11.22 Type 2 diabetes mellitus with diabetic chronic kidney disease; I48.2 Chronic atrial fibrillation; I16.0 Hypertensive urgency; N18.3 Chronic kidney disease, stage 3 (moderate); E83.42 Hypomagnesemia; I35.0 Nonrheumatic aortic (valve) stenosis; D50.9 Iron deficiency anemia, unspecified; E66.01 Morbid (severe) obesity due to excess calories; D63.8 Anemia in other chronic diseases classified elsewhere; Z99.81 Dependence on supplemental oxygen; Z68.30 Body mass index [BMI] 30.0-30.9, adult; Z87.01 Personal history of pneumonia (recurrent); Z90.49 Acquired absence of other specified parts of digestive tract; Z79.4 Long term (current) use of insulin; Z79.899 Other long term (current) drug therapy; Z88.8 Allergy status to other drugs, medicaments and biological substances; Z87.891 Personal history of nicotine dependence
CPT/HCPCS: 10879

== ENCOUNTER 2019-07-28 10:25 | Inpatient (IN) | payer OTHER ==
[~2019-07-28] VITALS: Ht 182.9 cm; Wt 104.3 kg
[~2019-07-28 10:25] MED LIST changes: +LANTUS SUBQ; +LEVAQUIN 750 M750 MG PO; +METOLAZONE 5 MG5 MG PO
[2019-07-28 10:26] VITALS: BP 143/74
[2019-07-28 10:46] LABS: ABSOLUTE NEUTROPHILS 7.2 thou/uL (1.4-8.2); BASOPHILS 0.6 % (0.0-2.0); EOSINOPHILS 1.4 % (0.0-3.0); LYMPHOCYTES 13.2 % (24.0-44.0); MCH 28.9 pg (26.0-34.0); MCHC 32.4 g/dL (28.0-37.0); MCV 89.1 fL (80.0-100.0); MONOCYTES 4.6 % (1.0-8.0); PLATELET COUNT 249 thou/uL (150-400); POLYS 80.2 % (36.0-66.0); RBC 3.81 mil/uL (4.50-6.00); RDW 18.9 % (10.5-14.5)
[2019-07-28 10:58] LABS: CALCIUM 9.8 mg/dL (8.5-10.1); CREATININE 1.4 mg/dL (0.7-1.3); POTASSIUM 3.7 mmol/L (3.5-5.1)
[2019-07-28 11:09] LABS: ALBUMIN 3.3 g/dL (3.4-5.0); MAGNESIUM 2.2 mg/dL (1.8-2.4); TOTAL BILIRUBIN 0.4 mg/dL (<0.1-1.0); TOTAL PROTEIN 7.8 g/dL (6.4-8.2); TROPONIN-I 0.11 ng/mL (<0.06)
[2019-07-28 11:43] VITALS: BP 154/75
[2019-07-28 12:38] LABS: ANISOCYTOSIS 2+; PLATELET ESTIMATE NORMAL
[2019-07-28 14:39] VITALS: BP 144/81
--- NOTE | 2019-07-28 16:12 | EKG ---
[address] [address] ELECTROCARDIOGRAM REPORT Name: EVELYN MEEKS Room #: 356-P ADM IN M.R.#: [id number] Admission: 07/28/19 Attend Phys: Kwabena Peoples MD Discharge: Date of : 40 Report #: [id number] THIS REPORT FOR: //name// [facility] ED Test Date: 2019-07-28 Test Time: 10:30:52 Pat Name: EVELYN MEEKS Department: Room: 356 Gender: M Kettle Girl: : 1940 Requested By: Wily Lux Order Number: [id number] MD: Gino Mckeon Measurements Intervals [place] Rate: 67 P: 68 DE: 168 QRS: 57 QRSD: 89 T: 32 QT: 428 QTc: 452 Interpretive Statements Sinus rhythm No significant abnormality Compared to ECG 05/01/2019 21:59:07 Atrial fibrillation no longer present Electronically Signed On 07-28-2019 16:12:42 CDT by Gino Mckeon [email or web address] <ELECTRONICALLY SIGNED> By: Gino Mckeon MD, [facility] 07/28/19 1612 D: 080 1030 Gino Mckeon MD, FACC /EPI
--- NOTE | 2019-07-28 18:38 | NUR ---
PATIENT ADMIT TO UNIT AT 1600. A/O X4. VERY PLEASANT. TOLERATED ON 6/L. SOB WITH EXERTION. AMBULATED IN ROOM. 3+ EDEMA BRIAN. DENIES PAIN. WILL KEEP MONITOR.
[2019-07-28 19:17] VITALS: BP 118/67
[2019-07-29 00:23] VITALS: BP 117/53
[2019-07-29 03:40] VITALS: BP 140/60
--- NOTE | 2019-07-29 04:58 | NUR ---
PATIENT IS ALERT AND ORIENTED. PATIENT IS ON 6L NC (WHICH IS BASELINE). PATIENT HAS SWELLING TO LOWER EXTREMITIES. PATIENT IS ENCOURAGED TO ELEVATE LEGS. PATIENT IS CONTROLLED CHRONIC A FIB ON TELE. PATIENT VOIDS PER URINAL. PATIENTS LBM WAS THE 29TH. PATIENTS TROPOIN WAS ELEVATED UPON ADMISTION PROVIDER AWARE. PATIENT DENIES PAIN. PATIENT IS REST COMFORTABLY IN BED. WCM. PATIENT IS PROGRESSING TO GOALS.
[2019-07-29 06:11] LABS: CALCIUM 9.9 mg/dL (8.5-10.1); CREATININE 1.7 mg/dL (0.7-1.3); MAGNESIUM 2.3 mg/dL (1.8-2.4)
[2019-07-29 06:16] LABS: POTASSIUM 5.1 mmol/L (3.5-5.1)
[2019-07-29 07:51] VITALS: BP 124/75
--- NOTE | 2019-07-29 11:14 | NUR ---
ORDERS RECEIVED FOR OT EVAL AND TREAT. AFTER EXPLAINING OT SERVICES, PATIENT UNDERSTANDS AND DECLINES NEED FOR SERVICES AT THIS TIME.
[2019-07-29 11:26] VITALS: BP 111/59
--- NOTE | 2019-07-29 15:56 | NUR ---
INITIAL ASSESSMENT: SW reviewed chart and spoke with nursing and attending physician. Pt was admitted from home due to exacerbation of COPD/CHF. SW met with pt and at bedside. Introduced role of SW. Pt is alert/orientated x 4. Pt and spouse live in their home. Prior to admission, pt is independent with ADLs. Pt does not use any DME for ambulation. Pt is normally on 6L of continuous O2. Home O2 is provided by [facility]. Pt's PCP is Dr. Yara Don. No discharge needs anticipated. SW is following to assist as needed.
[2019-07-29 16:35] VITALS: BP 122/52
--- NOTE | 2019-07-29 19:17 | NUR ---
PATIENT CONT TO PROGRESS TOWARDS DISCHARGE GOALS. HE IS ALERT ORIENTED X4. UP ON W/C AND AMBULATE WITH STEADY GAIT FOR SHORT DISTANCES. WILL CONT WITH PLAN OF CARE.
[2019-07-29 19:31] VITALS: BP 114/61
[2019-07-30 04:02] VITALS: BP 128/71
[2019-07-30 05:25] LABS: HEMATOCRIT 32.3 % (42.0-52.0); HEMOGLOBIN 10.4 gm/dL (14.0-18.0); MCH 28.4 pg (26.0-34.0); MCHC 32.1 g/dL (28.0-37.0); MCV 88.3 fL (80.0-100.0); RBC 3.66 mil/uL (4.50-6.00); RDW 19.1 % (10.5-14.5)
[2019-07-30 05:36] LABS: CALCIUM 9.9 mg/dL (8.5-10.1); CREATININE 1.7 mg/dL (0.7-1.3)
--- NOTE | 2019-07-30 07:49 | NUR ---
PATIENT IS ALERT AND ORIENTED. PATIENT IS UP AD IVANNA. PATIENT IS ON 6LNC WHICH IS BASELINE. PATIENT DENIES PAIN. PATIENT IS CHRONIC A FIB CONTROLLED. PATINET IS [facility] ACCUCHECKS FOR DM AND STERIODS. PATIENTS LBM WAS THE . PATIENT VOIDS PER URINAL. PATIENT IS PENDING DC THURSDAY. WCM. BOBONET IS PROGRESSING TO GOALS. PATIENT IS RESTING COMFORTABLY.
[2019-07-30 07:52] VITALS: BP 129/71
[2019-07-30 11:46] VITALS: BP 129/83
[2019-07-30 15:15] VITALS: BP 111/73
[2019-07-30 19:26] VITALS: BP 124/78
--- NOTE | 2019-07-30 19:27 | NUR ---
CONT TO PROGRESS TOWARDS DISCHARGE GOALS. HE IS ALERT ORIENTED X4. RESPIRATIONS NON LABORED. COUGH NOTED. AMBULATES TO BATHROOM WITH MINIMAL ASSIST. WILL CONT WITH PLAN OF CARE.
--- NOTE | 2019-07-31 03:12 | NUR ---
patient is alert and oriented. patient is up ad ac. patient is a fib controlled. patients lbm was the 31st. patient is on 6lnc which is baseline. patient is pending discharge today. patient is resting comfortably in bed. wcm. patient is progressing to goals.
[2019-07-31 04:08] VITALS: BP 103/69
[2019-07-31 05:10] LABS: HEMATOCRIT 36.3 % (42.0-52.0); HEMOGLOBIN 11.7 gm/dL (14.0-18.0); MCH 28.4 pg (26.0-34.0); MCHC 32.2 g/dL (28.0-37.0); MCV 88.1 fL (80.0-100.0); RBC 4.12 mil/uL (4.50-6.00); RDW 18.9 % (10.5-14.5); WBC 11.7 thou/uL (4.0-11.0)
[2019-07-31 05:17] LABS: CALCIUM 10.1 mg/dL (8.5-10.1); CREATININE 1.8 mg/dL (0.7-1.3); POTASSIUM 3.3 mmol/L (3.5-5.1)
[2019-07-31 08:20] VITALS: BP 107/59
[2019-07-31] MEDS ORDERED: IPRAT-ALBUT 0.5-3 ML INH (12:55)
[2019-07-31] MEDS ORDERED: METOLAZONE 5 MG5 MG PO (12:57)
[2019-07-31 13:27] VITALS: BP 107/59
--- NOTE | 2019-08-03 07:59 | HC ---
[facility] [place] [address] CONSULTATION Name: EVELYN MEEKS Room #: 356-P [facility] IN .R.#: [id number] Admission: 07/28/19 Attend Phys: Kwabena Peoples MD Discharge: 07/31/19 Date of : 40 Report #: [id number] THIS REPORT FOR: //name// CC: Yara Peoples HISTORY OF PRESENT ILLNESS: The patient is a 78-year-old gentleman with severe chronic hypoxemic respiratory failure with an FEV1 of around 30%. He has hypertension, paroxysmal atrial fibrillation and severe aortic stenosis. He was thoroughly evaluated at [facility] for the possibility of TAVR and he was turned down because of his severe COPD and poor vascular access. He is not a surgical candidate. He has had innumerable hospitalizations, mostly for either heart failure or COPD exacerbations, this admission is no different. He has had a nonproductive cough and wheezing. His reports that he has been off of his inhalers for several days. He has had mild lower extremity edema, although nothing to the severity that he has had previously. His dry weight is around 235 pounds, today's admission weight is 234 pounds. He denies chest heaviness, pressure or ischemic type symptoms. No history of palpitations, near syncope or syncope. He has a history of paroxysmal atrial fibrillation and systemic anticoagulant therapy has proved to be prohibitively risky as he has had recurrent episodes of epistaxis with associated iron deficiency anemia. Low-dose aspirin therapy has been used in its place. Nevertheless, he has had no symptoms to suggest recurrent atrial fibrillation. His most recent echocardiogram demonstrated a normal ejection fraction with a peak aortic gradient of 90 and a mean gradient of 48. Mild mitral regurgitation and a pulmonary artery pressure of over 60 mmHg. ALLERGIES: HE IS ALLERGIC TO VALIUM. MEDICATIONS: Include insulin, prednisone 5 mg daily, Advair 2 puffs twice daily, potassium 10 mEq twice daily, allopurinol 300 mg daily, torsemide 100 mg daily, Spiriva 1 capsule daily, iron, diltiazem CD 240 mg daily, losartan 50 mg daily, metolazone 5 mg daily. PAST MEDICAL HISTORY: Medical records have been reviewed and include a history of severe oxygen-dependent lung disease, paroxysmal atrial fibrillation, centrilobular emphysema, diabetes, history of recurrent epistaxis, recurrent pneumonia, prior cholecystectomy, atrial flutter ablation. SOCIAL HISTORY: He is a former smoker, quit in 1992. He is . FAMILY HISTORY: Unremarkable for premature coronary artery disease. REVIEW OF SYSTEMS: All systems negative except as that noted above. PHYSICAL EXAMINATION: GENERAL: Reveals a pleasant gentleman who is alert, [place] [address] CONSULTATION Name: EVELYN MEEKS Room #: 356-P [facility] IN M.R.#: [id number] Admission: 07/28/19 Attend Phys: Kwabena Peoples MD Discharge: 07/31/19 Date of : 40 Report #: [id number] VITAL SIGNS: Blood pressure is 144/81, heart rate of 88 and regular. He is afebrile. Weight is 234 pounds. HEENT: There are neither xanthelasma, subcutaneous xanthomata, oral mucosal or digital cyanosis or kyphoscoliosis present. CHEST: Reveals decreased breath sounds at both bases. A few expiratory wheezes. CARDIAC: Regular rate and rhythm with a harsh systolic murmur at the base. ABDOMEN: Soft, obese, nontender. EXTREMITIES: Reveal trace to 1+ edema. NEUROLOGIC: He is alert with a nonfocal exam. LABORATORY DATA: Sodium is 141, potassium 3.7, creatinine 1.4. ProBNP of 845. White count 9.0, hemoglobin 11, hematocrit 34, platelet count 249. Chest x-ray demonstrates interstitial pneumonitis versus edema. IMPRESSION: 1. Chronic obstructive pulmonary disease exacerbation; severe pulmonary hypertension. 2. Whzan-ri-lvldxzl diastolic heart failure. 3. Paroxysmal atrial fibrillation. 4. Chronic kidney disease; history of urinary retention. 5. Aortic stenosis, severe, turned down for TAVR and SAVR. 6. Diabetes. 7. Anemia, iron deficient. 8. Hypercoagulable. RECOMMENDATIONS: 1. Gentle diuresis. 2. Resume inhaler therapy and usual diuretics. 3. Salt restriction reinforced. I have discussed these issues with the patient and his . Thank you for asking me to participate in his care. <ELECTRONICALLY SIGNED> By: Gino Mckeon MD, FACC 08/03/19 0759 1716 0047 Gino Mckeon MD, FACC /nt
== END 2019-07-31 14:36 | disposition home or self-care (01) | DRG 291 ==
LOC: ER 10:25 → EROBS 11:43 → 3W 11:43
PROVIDERS: Emergency Medicine; Nurse Practitioner; ADMIT Hospitalist
DX: I13.0 Hypertensive heart and chronic kidney disease with heart failure and stage 1 through stage 4 chronic kidney disease, or unspecified chronic kidney disease (principal); I50.33 Acute on chronic diastolic (congestive) heart failure; J96.21 Acute and chronic respiratory failure with hypoxia; I48.92 Unspecified atrial flutter; D68.59 Other primary thrombophilia; N18.4 Chronic kidney disease, stage 4 (severe); K21.9 Gastro-esophageal reflux disease without esophagitis; E11.22 Type 2 diabetes mellitus with diabetic chronic kidney disease; I48.0 Paroxysmal atrial fibrillation; E78.5 Hyperlipidemia, unspecified; D63.8 Anemia in other chronic diseases classified elsewhere; I08.0 Rheumatic disorders of both mitral and aortic valves; J43.2 Centrilobular emphysema; I27.20 Pulmonary hypertension, unspecified; D50.9 Iron deficiency anemia, unspecified; T48.6X6A Underdosing of antiasthmatics, initial encounter; E53.8 Deficiency of other specified B group vitamins; Z99.81 Dependence on supplemental oxygen; Z90.49 Acquired absence of other specified parts of digestive tract; Z79.899 Other long term (current) drug therapy; Z79.4 Long term (current) use of insulin; Z88.8 Allergy status to other drugs, medicaments and biological substances; Z87.891 Personal history of nicotine dependence; Z79.52 Long term (current) use of systemic steroids; Z82.49 Family history of ischemic heart disease and other diseases of the circulatory system; Z87.01 Personal history of pneumonia (recurrent); Y92.89 Other specified places as the place of occurrence of the external cause; Z83.3 Family history of diabetes mellitus
CPT/HCPCS: 10779; 10879

== ENCOUNTER 2019-11-20 04:03 | Inpatient (IN) | payer OTHER ==
[~2019-11-20] VITALS: Ht 182.9 cm; Wt 104.4 kg
[~2019-11-20 04:03] MED LIST changes: +IPRAT-ALBUT 0.5-3 ML INH
[2019-11-20 04:04] VITALS: BP 140/76
[2019-11-20 04:45] LABS: ABSOLUTE NEUTROPHILS 7.9 thou/uL (1.4-8.2); BASOPHILS 0.7 % (0.0-2.0); EOSINOPHILS 1.5 % (0.0-3.0); HEMATOCRIT 35.7 % (42.0-52.0); HEMOGLOBIN 11.5 gm/dL (14.0-18.0); LYMPHOCYTES 14.1 % (24.0-44.0); MCH 29.5 pg (26.0-34.0); MCHC 32.2 g/dL (28.0-37.0); MCV 91.6 fL (80.0-100.0); MONOCYTES 6.9 % (1.0-8.0); PLATELET COUNT 253 thou/uL (150-400); POLYS 76.8 % (36.0-66.0); RDW 17.3 % (10.5-14.5); WBC 10.2 thou/uL (4.0-11.0)
[2019-11-20] MEDS ORDERED: [UNRECOGNIZED DRUG - OTHER] SUBQ (04:54)
[2019-11-20 04:56] LABS: CALCIUM 9.3 mg/dL (8.5-10.1); CREATININE 1.7 mg/dL (0.7-1.3); POTASSIUM 3.6 mmol/L (3.5-5.1)
[2019-11-20 05:05] LABS: TROPONIN-I 0.08 ng/mL (<0.06)
[2019-11-20 06:33] VITALS: BP 136/53
[2019-11-20 06:52] VITALS: BP 151/73
[2019-11-20 07:10] VITALS: BP 117/82
[2019-11-20] MEDS ORDERED: METOLAZONE 2.52.5 M1 PO (10:09)
[2019-11-20 11:30] VITALS: BP 114/67
--- NOTE | 2019-11-20 11:49 | NUR ---
Patient arrived from ER to room 363 approx. 0700 this AM. Patient placed on cardiac monitor. Hospitalist noted to not have put in any orders by late in the morning. Dr. Peoples notified of the situation as no hospitalist extraction operator was claiming the pt is theirs. Dr. Peoples said he will notify Dr. Alegre that the patient is under her care today. Dr. Alegre paged-call back recieved and said she was on the way up. Orders currently being put in; home meds are being restarted by physician. Patients at bedside. Will continue to monitor.
[2019-11-20 20:13] VITALS: BP 125/63
[2019-11-21 00:15] VITALS: BP 133/74
--- NOTE | 2019-11-21 01:40 | NUR ---
PT MAKING SLOW PROGRESS TOWARDS GOALS. PT AT THIS TIME SITTING IN BEDSIDE CHAIR NEXT TO HIS BED. REFUSED TO SIT IN BED WITH HIGH FOWLERS POSITION OR IN RECLINING CHAIR. IN RECLINING CHAIR. ABLE TO FIND AND PROVIDE SECOND RECLINING CHAIR BUT PT REFUSED. "I'M FINE SITTING RIGHT HERE. I'M 92% WITH MY OXYGEN SITTING HERE. I CAN'T GET MY O2 THERE WHEN LYING DOWN." PT REFUSED TO MOVE TO RECLINING CHAIR EVEN TELLING HIS "I'M NOT LISTENING TO YOU RIGHT NOW" WHEN SHE STATED THAT HE NEEDED TO FOLLOW THE RULES. DID DISCUSS USING RECLINING CHAIR A SAFER OPTION IN CASE PT WERE TO FALL ASLEEP WHILE SITTING HERE. "I'M NOT NOT GONNA FALL OUT THE CHAIR. I'M SITTING RIGHT HERE!"
[2019-11-21 04:41] VITALS: BP 128/65
[2019-11-21 05:47] LABS: HEMATOCRIT 34.5 % (42.0-52.0); HEMOGLOBIN 11.1 gm/dL (14.0-18.0); MCH 29.5 pg (26.0-34.0); MCHC 32.3 g/dL (28.0-37.0); MCV 91.3 fL (80.0-100.0); RBC 3.78 mil/uL (4.50-6.00); RDW 16.7 % (10.5-14.5); WBC 8.9 thou/uL (4.0-11.0)
[2019-11-21 05:58] LABS: CALCIUM 9.4 mg/dL (8.5-10.1); CREATININE 1.7 mg/dL (0.7-1.3); POTASSIUM 3.3 mmol/L (3.5-5.1)
[2019-11-21 08:33] VITALS: BP 136/71
[2019-11-21 15:36] VITALS: BP 101/67
--- NOTE | 2019-11-21 15:59 | NUR ---
INITIAL ASSESSMENT: Received consult for discharge planning. SW reviewed chart and spoke with nursing and attending physician. Pt was admitted from home due to pneumonia. SW met with pt and at bedside. Introduced role of SW. Pt is alert/orientated x 4. Pt reports that he and his live at home. There are 3 steps to enter the home and no steps inside. Prior to admission, pt was independent with ADLs. No use of DME for ambulation/mobility. Pt is on 6L continuous O2 through [employer]. No hx of services. Pt's PCP is Dr. Yara Don. Plan is for pt to discharge home when medically stable. SW is following to assist as needed with discharge planning.
--- NOTE | 2019-11-21 16:11 | EKG ---
[address] [address] ELECTROCARDIOGRAM REPORT Name: EVELYN MEEKS Room #: 363-P ADM IN M.R.#: [id number] Admission: 11/20/19 Attend Phys: Alise Alegre MD Discharge: Date of : 40 Report #: [id number] THIS REPORT FOR: //name// [facility] ED Test Date: 2019-11-20 Test Time: 05:02:35 Pat Name: EVELYN MEEKS Department: Room: 363 Gender: M Entry Level Account Manager: GISSELLE : 1940 Requested By: Augustina Christian Order Number: [id number] MD: Antony Carr Measurements Intervals [place] Rate: 74 P: [place]: QRS: 53 QRSD: 87 T: 28 QT: 381 QTc: 423 Interpretive Statements Atrial fibrillation Ventricular premature complex Compared to ECG 07/28/2019 10:30:52 Ventricular premature complex(es) now present Sinus rhythm no longer present Electronically Signed On 11-21-2019 16:10:41 PSYCHOSOCIAL REHABILITATION COUNSELOR by Antony Carr [email or web address] <ELECTRONICALLY SIGNED> By: Antony Carr MD 11/21/19 1610 0502 050 Antony Carr MD /FERN
--- NOTE | 2019-11-21 19:28 | NUR ---
PATIENT ALERT AND ORIENTED X4, NO COMPLAINTS OF PAIN. ON 8L NASAL CANNULA. SHORTNESS OF BREATH WITH INCREASED ACTIVITY. PATIENT UP TO CHAIR THROUGHOUT THE SHIFT. PRESENT AT THE BEDSIDE AND INVOLVED IN PATIENT CARE. PLAN DISCUSSED, BOTH VERBALIZED UNDERSTANDING. NO SIGNS OF ACUTE DITRESS NOTED AT THIS TIME, WILL CONTINUE TO MONITOR.
[2019-11-21 19:40] VITALS: BP 123/57
--- NOTE | 2019-11-22 02:28 | NUR ---
ASSUMED PT CARE AROUND 1900. A&OX4. DENIES ANY PAIN. PT SLEEPING IN CHAIR TONIGHT, PER HIS REQUEST. BLE EDEMA. PT ENCOURAGED TO KEEP BLE ELEVATED. DENIES ANY PAIN. O2 SATS STABLE ON 7L NC. UP W/ SBA TO BTR. TOLERATED WELL. PROGRESSING SLOWLY TOWARD POC GOALS. WILL GIVE REPORT TO RN TAKING OVER CARE FOR REST OF SHIFT.
--- NOTE | 2019-11-22 03:14 | NUR ---
Assumed care of patient around 0245. Patient is resting quietly. No changes in assessment from 0000. Nursing will continue to monitor.
[2019-11-22 04:25] VITALS: BP 115/60
[2019-11-22 07:25] VITALS: BP 121/75
--- NOTE | 2019-11-22 13:30 | NUR ---
SW reviewed chart and spoke with nursing. Pt is progressing towards goals for discharge. Plan is for pt to discharge home when medically stable. No discharge needs anticipated. SW is available to assist should needs arise.
[2019-11-22 14:35] VITALS: BP 118/73
--- NOTE | 2019-11-22 16:50 | NUR ---
ASSUMED CARE OF PT AT 0700 . PT ALERT AND ORIENTED X4 IN NO ACUTE DISTRESS. ON 7L NC. FAIR LUNG SOUNDS. ONE TIME LASIX DOSE GIVEN. CXR SHOWING IMPROVEMENT. AT BEDSIDE. PT VOICING NO CONCERNS. ELEVATED SUGARS TREATED PER ORDER. NO OTHER REMARKABLE CHANGES TO REPORT. WILL CONT TO MONITOR.
[2019-11-22 19:35] VITALS: BP 104/57
[2019-11-23 03:36] VITALS: BP 131/61
--- NOTE | 2019-11-23 04:44 | NUR ---
PATIENT IS ALERT AND ORIENTED. PATIENT IS SBA. PATIENT IS ON 6LNC AT BASELINE. CURRENTLY ON 7LNC. PATIENT IS A FIB ON TELE. PATIENTS LBM WAS THE 24TH. PATIENT DENIES PAIN. PATIENT IS ANXIOUS AT TIMES ABOUT OXYGEN LEVEL. PATIENT IS RESTING COMFORTABLY IN BED. WCM.
[2019-11-23 09:20] LABS: BE(vivo) 5.1 mmol/L (-2 to +3); HCO3 31.3 mmol/L (22.0-26.0); PO2 69.2 mmHg (80.0-100.0); pH 7.381 (7.360-7.450); sO2 93.3 % (92.0-98.0)
[2019-11-23 09:21] VITALS: BP 123/64
[2019-11-23 11:49] LABS: ABSOLUTE NEUTROPHILS 6.5 thou/uL (1.4-8.2); BASOPHILS 0.5 % (0.0-2.0); EOSINOPHILS 1.3 % (0.0-3.0); HEMATOCRIT 35.5 % (42.0-52.0); HEMOGLOBIN 11.2 gm/dL (14.0-18.0); LYMPHOCYTES 8.8 % (24.0-44.0); MCH 29.1 pg (26.0-34.0); MCHC 31.6 g/dL (28.0-37.0); MCV 92.2 fL (80.0-100.0); MONOCYTES 2.5 % (1.0-8.0); PLATELET COUNT 250 thou/uL (150-400); POLYS 86.9 % (36.0-66.0); RBC 3.85 mil/uL (4.50-6.00); RDW 16.5 % (10.5-14.5); WBC 7.5 thou/uL (4.0-11.0)
[2019-11-23 11:59] LABS: CALCIUM 9.8 mg/dL (8.5-10.1); CREATININE 1.7 mg/dL (0.7-1.3); POTASSIUM 3.9 mmol/L (3.5-5.1)
[2019-11-23 15:38] VITALS: BP 115/67
[2019-11-23 19:35] VITALS: BP 128/66
--- NOTE | 2019-11-23 20:13 | NUR ---
pt is A&OX3, RN has called dr about pt's SOB with o2 10 l/min/nc, new order received, PT'S o2sat has improved with o2 8L/MIN/NC, PT 'S VS are stable at this time.
[2019-11-24 05:21] LABS: HEMATOCRIT 33.2 % (42.0-52.0); HEMOGLOBIN 10.7 gm/dL (14.0-18.0); MCH 29.6 pg (26.0-34.0); MCHC 32.2 g/dL (28.0-37.0); RBC 3.6 mil/uL (4.50-6.00); RDW 16.3 % (10.5-14.5); WBC 6.3 thou/uL (4.0-11.0)
[2019-11-24 05:34] LABS: CALCIUM 9.9 mg/dL (8.5-10.1); CREATININE 1.9 mg/dL (0.7-1.3); POTASSIUM 4.6 mmol/L (3.5-5.1)
[2019-11-24 07:45] VITALS: BP 130/82
--- NOTE | 2019-11-24 12:59 | NUR ---
Later entry for 11/23/19 1600pm - 1930pm , RN has called DR to report :pt may have additional insulin befor dinner, New order, check BS Q30 MIN X6 Times, then follow hypoglycemia protocol order if low BS, hold dinner time insulin, RN has checked pt's BS as order6 times untill 1930pm, pt's BS is running 200-400 after pt's eating, no BS drip, RN has reported to next shift to keep eye on pt 's BS, giving insulin as order.
--- NOTE | 2019-11-24 14:49 | 2DMMODE ---
[facility] [address] [place] [address] 2 D/M-MODE ECHOCARDIOGRAM Name: EVELYN MEEKS Room #: 363-P ADM IN M.R.#: [id number] Admission: 11/20/19 Attend Phys: Alise Alegre MD Discharge: Date of : 40 Report #: [id number] THIS REPORT FOR: //name// APPROVED REPORT Study performed: 11/24/2019 13:22:06 EXAM: Comprehensive 2D, Doppler, and color-flow Echocardiogram Patient Location: Echo lab Room #: 363 Status: routine BSA: 2.24 HR: 83 bpm BP: 130/82 mmHg Rhythm: Atrial Fibrillation Other Information Study Quality: Good Indications Follow up pulmonary hypertension, Aortic stenosis. Hx: Afib/ablation, CHF, COPD, DM, HTN. 2D Dimensions RVDd: 48.23 mm IVSd: 13.20 (7-11mm) LVOT Diam: 20.97 (18-24mm) LVDd: 49.72 mm PWd: 13.00 (7-11mm) Ascending Ao: 37.94 (22-36mm) LVDs: 30.13 (25-40mm) Aortic Root: 39.44 mm Volumes Left Atrial Volume (Systole) Single Plane 4CH: 80.94 mL Single Plane 2CH: 105.20 mL LA ESV Index: 44.00 mL/m2 Aortic Valve AoV Peak Samy.: 4.40 m/s AO Peak Gr.: 77.64 mmHg LVOT Max P.62 mmHg AO Mean Gr.: 46.05 mmHg AO V2 Mean: 3.21 m/s LVOT Max V: 0.95 m/s AO V2 VTI: 101.08 cm TOD Vmax: 0.74 cm2 Mitral Valve [facility] [address] [place] [address] 2 D/M-MODE ECHOCARDIOGRAM Name: EVELYN MEEKS Room #: 363[facility] IN ..#: [id number] Admission: 11/20/19 Attend Phys: Alise Alegre MD Discharge: Date of : 40 Report #: [id number] MV Decel. Time: 204.03 ms Pulmonary Valve PV Peak Samy.: 1.09 m/s PV Peak Gr.: 4.75 mmHg Tricuspid Valve TR Peak Samy.: 3.38 m/s RAP Estimate: 15.00 mmHg TR Peak Gr.: 46.00 mmHg PA Pressure: 61.00 mmHg Left Ventricle The left ventricle is normal size. There is normal LV segmental wall motion. Mild concentric left ventricular hypertrophy. Left ventricular systolic function is normal. LVEF is 65-70%. This study is not technically sufficient to allow evaluation of the LV diastolic function due to atrial fibrillation. Right Ventricle Right ventricle is moderately dilated. The right ventricular systolic function is normal. Atria Left atrium is mildly dilated. Right atrium is moderately dilated. Aortic Valve The aortic valve is normal in structure. Leaflets are heavily thickened and calcified. Mild to moderate aortic regurgitation. There is severe valvular aortic stenosis. Calculated aortic valve area is 0.7 cm2 with maximum pressure gradient of 78 mmHg and mean pressure gradient of 46 mmHg. Mitral Valve The mitral valve is normal in structure. Mild mitral annular calcification. Mild mitral regurgitation. Tricuspid Valve The tricuspid valve is normal in structure. Moderate to severe tricuspid regurgitation. Estimated PAP is 60mmHg. Pulmonic Valve The pulmonary valve is normal in structure. Trace pulmonic regurgitation. Great Vessels Aortic root is mildly dilated. The ascending aorta is mildly dilated. [facility] [address] [place] [address] 2 D/M-MODE ECHOCARDIOGRAM Name: EVELYN MEEKS Room #: 363-P ADM IN M.R.#: [id number] Admission: 11/20/19 Attend Phys: Alise Alegre MD Discharge: Date of : 40 Report #: [id number] IVC is dilated and collapses <50% with inspiration. Pericardium There is no pericardial effusion. <Conclusion> The left ventricle is normal size. LVEF is 65-70%. Right ventricle is moderately dilated. Left atrium is mildly dilated. Right atrium is moderately dilated. The aortic valve is normal in structure. Leaflets are heavily thickened and calcified. Mild to moderate aortic regurgitation. There is severe valvular aortic stenosis. Calculated aortic valve area is 0.7 cm2 with maximum pressure gradient of 78 mmHg and mean pressure gradient of 46 mmHg. The mitral valve is normal in structure. Mild mitral annular calcification. Mild mitral regurgitation. The tricuspid valve is normal in structure. Moderate to severe tricuspid regurgitation. Estimated PAP is 60mmHg. The pulmonary valve is normal in structure. Trace pulmonic regurgitation. There is no pericardial effusion. <ELECTRONICALLY SIGNED> By: Gilles Pack MD 11/24/19 1449 [id number] 1449 Gilles Pack MD /INF
[2019-11-24 15:42] VITALS: BP 130/83
--- NOTE | 2019-11-24 19:20 | NUR ---
UP ON CHAIR MOST OF THE DAY. NO COMPLAIN OF PAIN. RESPIRATONS ARE NON LABORED. PLEASANT AND COOPERATIVE WITH CARE. BLOOD SUGAR HIGH. CORRECTIVE MEASURES IN PLACE. CONT ON ABT AND NO ADVERSE EFFECTS NOTED. WILL CONT WITH PLAN OF CARE.
[2019-11-24 19:30] VITALS: BP 129/65
--- NOTE | 2019-11-25 01:32 | NUR ---
PT SITTING UP IN RECLINER. AT BEDSIDE. O2 PERN NC AND IVF INTACT. BLE EDEMA REMAINS. PT DISCUSSED FRUSTRATION R/T FSBS ELEVATED. LANTUS RESTARTED AND GIVEN THIS HS, APPROPRIATE AFFECT, STEADY GAIT. LUNGS DIMINSHED, TELE AFIBB HR IRREG, MURMUR.
[2019-11-25 04:10] VITALS: BP 125/3
[2019-11-25 07:55] VITALS: BP 138/69
--- NOTE | 2019-11-25 10:42 | NUR ---
Nutrition: Assessed due to early day 5 LOS. Admit: pneumonia. Extensive PMH to include: DM II, COPD, CHF, aortic stenosis, a fib, CKD stage 3. Pt on a 1500 kcal carb controlled, heart healthy diet w/ a 1200ml fluid restriction. Meals are limited to 4 carb choices/day. Despite restricted carbs, pt w/ significant BG elevations, ranged 368-500 mg/dl on 11/24. Lantus added (20 units HS), plu meal time Humalog increased (20 units scheduled AC). Do note pt on IV Solu Medrol too. Pt and had extensive food complaints about dryness of meats, etc. RD notified [employer]n [employer] of these concerns. Helped pt modify/ upgrade dinner tray tonight to improve protein intake, allowing 1x order of chicken tenders w/ pears, cottage cheese. Despite complaints, pt eats 100% of most meals. On a MVI w/ minerals and B12. Keep as low nutrition risk.
--- NOTE | 2019-11-25 14:07 | NUR ---
SW reviewed chart and spoke with nursing and attending physician. Pt is slowly progressing towards goals for discharge. SW met with pt and at bedside. Pt and state that pt will not be discharged over the weekend. Pt's blood glucose is still elevated. Pt is on 8L of O2 and is normally on 6L at home. Pulm is tapering steroids. Pt and state that their plan is for pt to return home when medically stable. SW is following to assist as needed with discharge planning.
[2019-11-25 15:05] VITALS: BP 114/59
--- NOTE | 2019-11-25 19:46 | NUR ---
PATIENT RESTED ON RECLINER THROUGH THE DAY. BLOOD SUGAR CONT TO TREND DOWN. HE HAS NOT VOICED ANY COMPLAIN OF PAIN. RESPIRATIONS ARE NON LABORED. WILL CONT WITH PLAN OF CARE.
[2019-11-25 20:00] VITALS: BP 132/64
--- NOTE | 2019-11-25 22:23 | NUR ---
PT SITTING UP IN CHAIR WATCHING TV. REMAINS AT BEDSIDE. IVF AND O2 PER NC INTACT. PT REQUESTED NC BE RETURNED TO 8 L FROM 7 L, STATED HE JUST RETURNED FROM WALKING TO RESTROOM. PT WEARS HOME PULSE OX ON HIS FINGER WHEN AMBULATING AND INTERMITTENTLY. PT VERBALIZING IRRITABILITY AND FRUSTRATION WITH CONTINUED ELEVATED FSBS. PT DISCUSSED HOW HE HAS TALKED WITH NURSE SPORTING GOODS SALES ASSOCIATE RE AN OCCURENCE WITH NURSING CARE EARLIER IN HIS STAY.
[2019-11-26 04:09] LABS: CALCIUM 9.3 mg/dL (8.5-10.1); CREATININE 1.7 mg/dL (0.7-1.3); MAGNESIUM 2.3 mg/dL (1.8-2.4); PHOSPHORUS 3.7 mg/dL (2.5-4.9); POTASSIUM 4.5 mmol/L (3.5-5.1)
[2019-11-26 04:20] LABS: HEMOGLOBIN 10.9 gm/dL (14.0-18.0); LYMPHOCYTES 3.5 % (24.0-44.0); MCH 29.1 pg (26.0-34.0); MCHC 31.9 g/dL (28.0-37.0); MCV 91.2 fL (80.0-100.0); MONOCYTES 1.9 % (1.0-8.0); PLATELET COUNT 261 thou/uL (150-400); POLYS 94.6 % (36.0-66.0); RBC 3.73 mil/uL (4.50-6.00); RDW 16.9 % (10.5-14.5); WBC 8.5 thou/uL (4.0-11.0)
[2019-11-26 04:35] VITALS: BP 130/82
[2019-11-26 07:20] VITALS: BP 132/71
[2019-11-26 15:10] VITALS: BP 123/60
--- NOTE | 2019-11-26 18:49 | NUR ---
PATIENT HAS RESTED IN ROOM AT THIS TIME.NO COMPLAIN OF PAIN NOTED AT THIS TIME.
[2019-11-26 20:09] VITALS: BP 147/81
[2019-11-27 03:27] VITALS: BP 140/81
--- NOTE | 2019-11-27 05:08 | NUR ---
Received pt. up in recliner chair and has slept in the chair most of the night. at bedside. O2 from 6-8L depending on his activities in room. Still gets short of breath with exertion though a little better than previous. Reinforced fluid restriction. Voiding well per urinal.
[2019-11-27 05:51] LABS: ALBUMIN 2.9 g/dL (3.4-5.0); CALCIUM 9.5 mg/dL (8.5-10.1); CREATININE 1.6 mg/dL (0.7-1.3); PHOSPHORUS 3.3 mg/dL (2.5-4.9); POTASSIUM 4.3 mmol/L (3.5-5.1)
[2019-11-27 06:53] VITALS: BP 138/80
[2019-11-27 15:50] VITALS: BP 139/77
--- NOTE | 2019-11-27 19:26 | NUR ---
PT HOPEFULLY READY TO D/C TOMORROW TO HOME ON 6L BASELINE...ENCOURAGED TO WALK IN [place] WITH STAFF AND O2 BUT REFUSED SO FAR...
[2019-11-27 20:20] VITALS: BP 152/85
--- NOTE | 2019-11-27 22:22 | NUR ---
PT SITTING UP IN CHAIR, 02 PER NC 6L. PT VERBALIZED AMBULATING ON PRIOR SHIFT. PT STATED HE WAS TOLD HE WAS GOING TO DC MON, THEY TRIED TO DC HIM TODAY. HE SAID NO. PT VERBALIZED HE DOES NOT WANT TO DC TOMORROW HE WANTED TO REMAIN ON 7L FOR 24 HRS THEN 6L. DISCUSSED CALLING PT [employer] ON THURSDAY AND WAITING TO TALK WITH THEM. DISCUSSED BEING AWARE OF MEDICARE APPEAL PROCESS. LUNGS DIMINISHED, HR IRREG MURMUR, BLE EDEMA +3. PT VERBALIZED THAT HIS FSBS HAVE BEEN MORE IN RANGE TODAY. PT WAS SINGING HIS CONVERSATION TO THE NURSE, WHEN PASSING MEDS. PT REQUESTED HS SNACK AND PROVIDED. PT VERBALIZED UNDERSTADING OF FR.
[2019-11-28 04:40] VITALS: BP 132/74
[2019-11-28 05:36] LABS: ABSOLUTE NEUTROPHILS 8.7 thou/uL (1.4-8.2); BASOPHILS 0.3 % (0.0-2.0); HEMATOCRIT 37.6 % (42.0-52.0); HEMOGLOBIN 11.8 gm/dL (14.0-18.0); LYMPHOCYTES 4.2 % (24.0-44.0); MCH 28.7 pg (26.0-34.0); MCHC 31.4 g/dL (28.0-37.0); MCV 91.4 fL (80.0-100.0); MONOCYTES 1.8 % (1.0-8.0); PLATELET COUNT 285 thou/uL (150-400); POLYS 93.7 % (36.0-66.0); RBC 4.11 mil/uL (4.50-6.00); RDW 16.8 % (10.5-14.5); WBC 9.3 thou/uL (4.0-11.0)
[2019-11-28 05:38] LABS: CALCIUM 9.5 mg/dL (8.5-10.1); CREATININE 1.6 mg/dL (0.7-1.3); POTASSIUM 4.7 mmol/L (3.5-5.1)
[2019-11-28 08:03] VITALS: BP 133/85
--- NOTE | 2019-11-28 13:46 | NUR ---
Nutrition: Seen for follow up. Received consult for pt and family requesting to speak with RD again. Continues on a heart healthy, carb controlled diet, with 3-4 carb choices/meal. wanting more education about carb counting, what is a carb serving, better food choices, portion sizes, etc. Encouraged closer to 45 g CHO/meal d/t weight and recently persistently elevated BGs, worsened by steroids. Educated on food labels, practiced creating a sample meal, and strongly encouraged increased fiber at meal times and pairing fruit with protein at meals or if having for snacks to minimize sharper rise and fall fall of BGs. Suggested Calorie [employer] carb counting book. All of pt's/ 's questions answered fully. Low nutrition risk.
--- NOTE | 2019-11-28 13:52 | NUR ---
DISCHARGE NOTE: SW reviewed chart and spoke with nursing and attending physician. Pt just had a chest xray and should discharge home pending results of chest xray. SW met with pt and at bedside to provide update and discuss discharge plan. Both are aware and in agreement with discharge plan. Both deny having any discharge needs. Pt has home O2 in place through [facility]. No SW needs identified at this time, but is available to assist should needs arise.
[2019-11-28] MEDS ORDERED: PREDNISONE 10 M10 M1 PO (14:55)
[2019-11-28 15:52] VITALS: BP 133/85
--- NOTE | 2019-11-28 17:32 | NUR ---
PT ALERT AND ORIENTED X4. BG [address] SWIFT NOTIFIED AND SLIDING SCALE ADVANCED TO MODERATE. ORDERS TO DISCHARGE TO HOME. DISCUSSED DISCHARGE INSTRUCTIONS WITH PT AND HIS . PT AWAITING RIDE.
== END 2019-11-28 17:54 | disposition home or self-care (01) | DRG 177 ==
LOC: ER 04:03 → EROBS 06:34 → 3W 06:34 → EROBS 06:54 → 3W 07:20 → ENTRNSPT 11-28 17:36 → 3W 11-28 17:54
PROVIDERS: Emergency Medicine; Hospitalist; Internal Medicine; Internal Medicine Pulmonary Disease; ADMIT Internal Medicine
DX: J69.0 Pneumonitis due to inhalation of food and vomit (principal); J96.21 Acute and chronic respiratory failure with hypoxia; I50.33 Acute on chronic diastolic (congestive) heart failure; J96.22 Acute and chronic respiratory failure with hypercapnia; G92 Toxic encephalopathy; J44.1 Chronic obstructive pulmonary disease with (acute) exacerbation; I48.20 Chronic atrial fibrillation, unspecified; I13.0 Hypertensive heart and chronic kidney disease with heart failure and stage 1 through stage 4 chronic kidney disease, or unspecified chronic kidney disease; N18.3 Chronic kidney disease, stage 3 (moderate); D64.9 Anemia, unspecified; E11.22 Type 2 diabetes mellitus with diabetic chronic kidney disease; I35.0 Nonrheumatic aortic (valve) stenosis; E53.8 Deficiency of other specified B group vitamins; E66.9 Obesity, unspecified; E11.65 Type 2 diabetes mellitus with hyperglycemia; I27.20 Pulmonary hypertension, unspecified; Z79.01 Long term (current) use of anticoagulants; Z90.49 Acquired absence of other specified parts of digestive tract; Z68.31 Body mass index [BMI] 31.0-31.9, adult; Z88.8 Allergy status to other drugs, medicaments and biological substances; Z87.891 Personal history of nicotine dependence; Z83.3 Family history of diabetes mellitus; Z82.49 Family history of ischemic heart disease and other diseases of the circulatory system; Z79.52 Long term (current) use of systemic steroids
CPT/HCPCS: 10879

== ENCOUNTER 2019-12-12 05:08 | Emergency (ER) | payer OTHER ==
[~2019-12-12] VITALS: Ht 182.9 cm; Wt 90.7 kg
[~2019-12-12 05:08] MED LIST changes: +METOLAZONE 2.52.5 M1 PO; +PREDNISONE 10 M10 M1 PO; +[UNRECOGNIZED DRUG - OTHER] SUBQ
[2019-12-12 05:09] VITALS: BP 121/73
== END 2019-12-12 06:18 | disposition home or self-care (01) ==
LOC: ER 05:08
DX: R04.0 Epistaxis (principal); J96.10 Chronic respiratory failure, unspecified whether with hypoxia or hypercapnia; E11.22 Type 2 diabetes mellitus with diabetic chronic kidney disease; I13.0 Hypertensive heart and chronic kidney disease with heart failure and stage 1 through stage 4 chronic kidney disease, or unspecified chronic kidney disease; N18.3 Chronic kidney disease, stage 3 (moderate); I50.9 Heart failure, unspecified; I48.91 Unspecified atrial fibrillation; Z87.891 Personal history of nicotine dependence; Z79.4 Long term (current) use of insulin

== ENCOUNTER 2019-12-20 15:15 | Inpatient (IN) | payer OTHER ==
[~2019-12-20] VITALS: Ht 182.9 cm; Wt 99.8 kg
[2019-12-20 15:27] VITALS: BP 120/50
[2019-12-20 18:18] VITALS: BP 106/53
[2019-12-20 18:26] LABS: ABSOLUTE NEUTROPHILS 5.2 thou/uL (1.4-8.2); BASOPHILS 0.4 % (0.0-2.0); EOSINOPHILS 1.8 % (0.0-3.0); HEMATOCRIT 34.9 % (42.0-52.0); HEMOGLOBIN 11.4 gm/dL (14.0-18.0); MCH 29.1 pg (26.0-34.0); MCHC 32.7 g/dL (28.0-37.0); MCV 89.2 fL (80.0-100.0); MONOCYTES 5.9 % (1.0-8.0); PLATELET COUNT 286 thou/uL (150-400); POLYS 72.9 % (36.0-66.0); RBC 3.91 mil/uL (4.50-6.00); RDW 16.6 % (10.5-14.5); WBC 7.1 thou/uL (4.0-11.0)
[2019-12-20 18:33] LABS: APTT 29.2 Seconds (24.5-32.8); PROTIME 10.5 Seconds (9.3-11.4)
[2019-12-20 18:38] LABS: CALCIUM 9.8 mg/dL (8.5-10.1); CREATININE 1.9 mg/dL (0.7-1.3); POTASSIUM 3.4 mmol/L (3.5-5.1)
[2019-12-20 18:43] LABS: ALBUMIN 2.9 g/dL (3.4-5.0); TOTAL BILIRUBIN 0.2 mg/dL (<0.1-1.0); TOTAL PROTEIN 7.6 g/dL (6.4-8.2)
[2019-12-20 18:44] VITALS: BP 106/59
[2019-12-20 19:50] VITALS: BP 135/49
[2019-12-20 23:56] VITALS: BP 133/60
[2019-12-21 04:34] VITALS: BP 123/52
[2019-12-21 06:22] LABS: ABSOLUTE NEUTROPHILS 4.7 thou/uL (1.4-8.2); BASOPHILS 0.5 % (0.0-2.0); EOSINOPHILS 2.1 % (0.0-3.0); HEMATOCRIT 33.6 % (42.0-52.0); HEMOGLOBIN 10.8 gm/dL (14.0-18.0); LYMPHOCYTES 21.5 % (24.0-44.0); MCH 28.9 pg (26.0-34.0); MCHC 32.3 g/dL (28.0-37.0); MCV 89.5 fL (80.0-100.0); MONOCYTES 6.9 % (1.0-8.0); PLATELET COUNT 291 thou/uL (150-400); RBC 3.76 mil/uL (4.50-6.00); RDW 16.8 % (10.5-14.5); WBC 6.8 thou/uL (4.0-11.0)
[2019-12-21 06:44] LABS: CALCIUM 9.4 mg/dL (8.5-10.1); CREATININE 1.6 mg/dL (0.7-1.3); MAGNESIUM 1.6 mg/dL (1.8-2.4); POTASSIUM 3.8 mmol/L (3.5-5.1)
[2019-12-21 07:26] VITALS: BP 127/66
[2019-12-21 12:10] VITALS: BP 123/54
--- NOTE | 2019-12-21 14:46 | NUR ---
INITIAL ASSESSMENT: Received consult for discharge planning. SW reviewed chart and spoke with nursing and attending physician. Pt was admitted from home due to epistaxis. SW met with pt at bedside. Introduced role of SW. Pt is alert/orientated x 4. Pt reports that he and his live at home. There are 3 steps to enter the home and no steps inside. Prior to admission, pt was independent with ADLs. No use of DME for ambulation/mobility. Pt is on 6L continuous O2 through [employer]. No hx of services. Pt's PCP is Dr. Yara Don. Pt is waiting for ENT consult. Plan is for pt to discharge home when medically stable. No discharge needs identified at this time, but is available to assist should needs arise.
[2019-12-21 17:12] VITALS: BP 116/60
[2019-12-21 19:55] VITALS: BP 123/70
--- NOTE | 2019-12-22 03:51 | NUR ---
Patient making progress towards outcome goals. nasal packing in place. No active bleeding. Awaiting ENT consult. Low fall risks, gait steady.
[2019-12-22 04:36] VITALS: BP 131/72
[2019-12-22 05:17] LABS: HEMATOCRIT 36.2 % (42.0-52.0); HEMOGLOBIN 11.8 gm/dL (14.0-18.0); MCH 29.2 pg (26.0-34.0); MCHC 32.6 g/dL (28.0-37.0); MCV 89.6 fL (80.0-100.0); RBC 4.04 mil/uL (4.50-6.00); RDW 16.8 % (10.5-14.5); WBC 8.5 thou/uL (4.0-11.0)
[2019-12-22 08:28] VITALS: BP 112/64
--- NOTE | 2019-12-22 14:21 | NUR ---
DISCHARGE NOTE: SW reviewed chart and spoke with nursing and attending physician. Pt will discharge home after ENT consult today. No discharge needs anticipated. Pt has home O2 in place. SW is available to assist should needs arise.
[2019-12-22 15:07] VITALS: BP 114/91
[2019-12-22 16:36] VITALS: BP 114/91
--- NOTE | 2019-12-22 16:46 | NUR ---
RECEIVED PT'S CARE AROUND 0700; PT. AOX4; UPSET DUE TO ENT HAS NOT ROUNDED ON PT.; SHOUTING ON NURSE "DO NOT BE SORRY"; "DO SOMETHING ABOUT IT"; EXPLAINED WAITER/WAITRESS TAVERN WILL CONTACT PHYSICIAN LATER ; AROUND 0800; ANSWERING SERVICE FOR ENT PHYSICIAN CONTACTED; CALL BACK FROM PHYSICIAN; UPDATE ABOUT PT'S STATUS; PHYSICIAN REQUESTED TO BE TRANSFER WITH SCADA TECHNICIAN; TRANSFER TO SCADA TECHNICIAN; CHEMISTRY LAB INSTRUCTOR ROUNDING; NOTIFIED ABOUT PT. BEING UPSET DUE TO ENT HAS NOT ROUNDED ON PT.; ADVOCATE PT. NOTIFIED ABOUT PT'S; EDUCATED ABOUT FALL PRECAUTIONS; UNCOOPERATIVE; AMBULATE TO RESTHROOM BYHIMSELF; AM MEDICATIONS GIVEN; ENT ROUNDING ON PT. AROUND 1600; PHYSICIAN VERBALICES TO NURSE OK TO PT. TO GO HOME; DR. VALENTIN NOTIFIED; D/C ORDERS ON PLACE; ASSESSMENT CHARGED;WORKING ON D/C PAPERS; POC FOLLOWED; CHARGED;
[2019-12-22] MEDS ORDERED: AUGMENTIN 875-1 EACH PO (17:08)
== END 2019-12-22 17:54 | disposition home or self-care (01) | DRG 150 ==
LOC: ER 15:15 → 3W 18:12 → EROBS 18:12 → 3W 18:48
PROVIDERS: Emergency Medicine; Nurse Practitioner; ADMIT Hospitalist
DX: R04.0 Epistaxis (principal); N17.0 Acute kidney failure with tubular necrosis; I13.0 Hypertensive heart and chronic kidney disease with heart failure and stage 1 through stage 4 chronic kidney disease, or unspecified chronic kidney disease; E44.0 Moderate protein-calorie malnutrition; I48.20 Chronic atrial fibrillation, unspecified; I50.30 Unspecified diastolic (congestive) heart failure; J44.9 Chronic obstructive pulmonary disease, unspecified; N18.3 Chronic kidney disease, stage 3 (moderate); E78.5 Hyperlipidemia, unspecified; E11.65 Type 2 diabetes mellitus with hyperglycemia; D63.8 Anemia in other chronic diseases classified elsewhere; I35.0 Nonrheumatic aortic (valve) stenosis; E11.22 Type 2 diabetes mellitus with diabetic chronic kidney disease; Z83.3 Family history of diabetes mellitus; Z82.49 Family history of ischemic heart disease and other diseases of the circulatory system; Z68.29 Body mass index [BMI] 29.0-29.9, adult; Z90.49 Acquired absence of other specified parts of digestive tract; Z88.8 Allergy status to other drugs, medicaments and biological substances; Z87.891 Personal history of nicotine dependence
CPT/HCPCS: 10879

== ENCOUNTER 2020-01-02 09:51 | Emergency (ER) | payer OTHER ==
[~2020-01-02] VITALS: Ht 182.9 cm; Wt 99.8 kg
--- NOTE | ~2020-01-02 | EKG ---
[facility] [address] [place] [address] ELECTROCARDIOGRAM REPORT Name: EVELYN MEEKS ODELL Room #: PRE M.R.#: [id number] Admission: Attend Phys: Discharge: Date of : 40 Report #: [id number] THIS REPORT FOR: cc: Cuba Brink MD ~ THIS REPORT FOR: //name// [facility] ED Test Date: 2020-01-02 Test Time: 11:00:18 Pat Name: EVELYN MEEKS Department: Room: Gender: M Vegetable Trimmer: JEYSON : 1940 Requested By: Melo Juares Order Number: [id number] MD: Measurements Intervals [place] Rate: 105 P: [place]: QRS: 59 QRSD: 92 T: 3 QT: 342 QTc: 453 Interpretive Statements Atrial fibrillation Borderline T abnormalities, diffuse leads Compared to ECG 11/20/2019 05:02:35 T-wave abnormality now present Ventricular premature complex(es) no longer present [email or web address] By: 1100 1100 Cuba Brink MD /EPI
[~2020-01-02 09:51] MED LIST changes: +AUGMENTIN 875-1 EACH PO
[2020-01-02 11:04] LABS: ABSOLUTE NEUTROPHILS 7.5 thou/uL (1.4-8.2); BASOPHILS 0.6 % (0.0-2.0); EOSINOPHILS 0.3 % (0.0-3.0); HEMATOCRIT 30.9 % (42.0-52.0); LYMPHOCYTES 14.6 % (24.0-44.0); MCH 29.1 pg (26.0-34.0); MCHC 32.3 g/dL (28.0-37.0); MONOCYTES 5.2 % (1.0-8.0); PLATELET COUNT 317 thou/uL (150-400); POLYS 79.3 % (36.0-66.0); RBC 3.43 mil/uL (4.50-6.00); RDW 18.1 % (10.5-14.5); WBC 9.4 thou/uL (4.0-11.0)
[2020-01-02 11:14] LABS: POTASSIUM 3.5 mmol/L (3.5-5.1); TROPONIN-I 0.08 ng/mL (<0.06)
[2020-01-02 11:34] LABS: CALCIUM 9.9 mg/dL (8.5-10.1); CREATININE 1.5 mg/dL (0.7-1.3)
[2020-01-02 11:51] LABS: ANISOCYTOSIS 2+; PLATELET ESTIMATE NORMAL
[2020-01-02 12:41] VITALS: BP 127/67
== END 2020-01-02 12:40 | disposition home or self-care (01) ==
LOC: ER 09:51
PROVIDERS: Emergency Medicine
DX: R06.00 Dyspnea, unspecified (principal); I48.91 Unspecified atrial fibrillation; I13.0 Hypertensive heart and chronic kidney disease with heart failure and stage 1 through stage 4 chronic kidney disease, or unspecified chronic kidney disease; E11.22 Type 2 diabetes mellitus with diabetic chronic kidney disease; N18.3 Chronic kidney disease, stage 3 (moderate); J44.9 Chronic obstructive pulmonary disease, unspecified; Z86.2 Personal history of diseases of the blood and blood-forming organs and certain disorders involving the immune mechanism; Z79.4 Long term (current) use of insulin; Z87.891 Personal history of nicotine dependence; Z88.8 Allergy status to other drugs, medicaments and biological substances

== ENCOUNTER → 2020-01-16 | Outpatient (CLI) | payer OTHER | LOC: SJCVC 15:02 | DX: I11.0 Hypertensive heart disease with heart failure (principal); I50.32 Chronic diastolic (congestive) heart failure; I48.21 Permanent atrial fibrillation; J43.2 Centrilobular emphysema; I35.0 Nonrheumatic aortic (valve) stenosis; E78.5 Hyperlipidemia, unspecified; E11.9 Type 2 diabetes mellitus without complications; Z79.4 Long term (current) use of insulin; Z90.49 Acquired absence of other specified parts of digestive tract; Z87.891 Personal history of nicotine dependence; Z79.899 Other long term (current) drug therapy ==

== ENCOUNTER → 2020-01-30 | Outpatient (CLI) | payer OTHER | LOC: SJCVC 10:28 | DX: I11.0 Hypertensive heart disease with heart failure (principal); I50.32 Chronic diastolic (congestive) heart failure; E11.9 Type 2 diabetes mellitus without complications; J43.2 Centrilobular emphysema; E78.5 Hyperlipidemia, unspecified; M10.9 Gout, unspecified ==

== ENCOUNTER → 2020-05-23 | Outpatient (CLI) | payer OTHER | LOC: CAT 14:28 | PROVIDERS: ATTEND Pediatrics | DX: J43.9 Emphysema, unspecified (principal); I70.0 Atherosclerosis of aorta ==

== ENCOUNTER → 2020-06-11 | Outpatient (CLI) | payer OTHER ==
[2020-06-11 11:41] LABS: ABSOLUTE NEUTROPHILS 5.2 thou/uL (1.4-8.2); BASOPHILS 0.4 % (0.0-2.0); EOSINOPHILS 0.8 % (0.0-3.0); HEMOGLOBIN 10.6 gm/dL (14.0-18.0); LYMPHOCYTES 17.1 % (24.0-44.0); MCH 28.6 pg (26.0-34.0); MCHC 32.1 g/dL (28.0-37.0); MCV 89.2 fL (80.0-100.0); MONOCYTES 9.5 % (1.0-8.0); PLATELET COUNT 225 thou/uL (150-400); POLYS 72.2 % (36.0-66.0); RDW 17.7 % (10.5-14.5); WBC 7.2 thou/uL (4.0-11.0)
== END ==
LOC: RAD 10:35
PROVIDERS: ATTEND Pediatrics
DX: I51.7 Cardiomegaly (principal); M25.78 Osteophyte, vertebrae; J98.11 Atelectasis

== ENCOUNTER 2020-07-13 08:50 | Emergency (ER) | payer OTHER ==
[~2020-07-13] VITALS: Ht 182.9 cm; Wt 99.8 kg
[2020-07-13 09:46] LABS: ABSOLUTE NEUTROPHILS 8.7 thou/uL (1.4-8.2); BASOPHILS 0.5 % (0.0-2.0); EOSINOPHILS 0.5 % (0.0-3.0); HEMATOCRIT 27.4 % (42.0-52.0); HEMOGLOBIN 8.6 gm/dL (14.0-18.0); LYMPHOCYTES 10.3 % (24.0-44.0); MCH 27.3 pg (26.0-34.0); MCHC 31.5 g/dL (28.0-37.0); MCV 86.6 fL (80.0-100.0); PLATELET COUNT 230 thou/uL (150-400); POLYS 82.7 % (36.0-66.0); RBC 3.17 mil/uL (4.50-6.00); WBC 10.5 thou/uL (4.0-11.0)
[2020-07-13 09:54] LABS: ANION GAP 3 mmol/L (7-16); BUN 41 mg/dL (7-18); CALCIUM 9.2 mg/dL (8.5-10.1); CHLORIDE 101 mmol/L (98-107); CO2 35 mmol/L (21-32); CREATININE 1.9 mg/dL (0.7-1.3); GLUCOSE 251 mg/dL (74-106); POTASSIUM 4.5 mmol/L (3.5-5.1); SODIUM 139 mmol/L (136-145)
[2020-07-13 10:02] LABS: TROPONIN-I <0.06 ng/mL (<0.06)
[2020-07-13 12:30] LABS: ANISOCYTOSIS 2+; POLYCHROMASIA SLIGHT
[2020-07-13 12:31] LABS: OVALOCYTES FEW
[2020-07-13] MEDS ORDERED: AUGMENTIN 875-1 EACH PO (14:06)
[2020-07-13 14:35] VITALS: BP 145/79
--- NOTE | 2020-07-14 11:34 | EKG ---
[facility] [place] [address] ELECTROCARDIOGRAM REPORT Name: EVELYN MEEKS Room #: DEP [facility]#: [id number] Admission: 07/13/20 Attend Phys: Discharge: 07/13/20 Date of : 40 Report #: [id number] THIS REPORT FOR: cc: FAM - Family physician unknown FAM - Family physician unknown Antony Carr MD ~ THIS REPORT FOR: //name// [facility] ED Test Date: 2020-07-13 Test Time: 10:16:16 Pat Name: EVELYN MEEKS Department: Room: Gender: Informal Waiter/Waitress: [facility] : 1940 Requested By: Melo Juares Order Number: [id number] MD: Antony Carr Measurements Intervals [place] Rate: 88 P: [place]: QRS: 43 QRSD: 85 T: 7 QT: 338 QTc: 409 Interpretive Statements Atrial fibrillation Ventricular premature complex Consider anterior infarct Compared to ECG 01/02/2020 11:00:18 Ventricular premature complex(es) now present Myocardial infarct finding now present T-wave abnormality no longer present Electronically Signed On 07-14-2020 11:33:51 CDT by Antony Carr [email or web address] <ELECTRONICALLY SIGNED> By: Antony Carr MD 07/14/20 1133 1016 1016 Antony Carr MD /EPI
== END 2020-07-13 14:40 | disposition home or self-care (01) ==
LOC: ER 08:50
PROVIDERS: Emergency Medicine
DX: J18.9 Pneumonia, unspecified organism (principal); Z20.828 Contact with and (suspected) exposure to other viral communicable diseases; I48.91 Unspecified atrial fibrillation; I13.0 Hypertensive heart and chronic kidney disease with heart failure and stage 1 through stage 4 chronic kidney disease, or unspecified chronic kidney disease; N18.3 Chronic kidney disease, stage 3 (moderate); I50.9 Heart failure, unspecified; Z87.891 Personal history of nicotine dependence; Z88.8 Allergy status to other drugs, medicaments and biological substances; Z79.899 Other long term (current) drug therapy; Z90.49 Acquired absence of other specified parts of digestive tract

== ENCOUNTER 2020-08-07 15:12 | Emergency (ER) | payer OTHER ==
[~2020-08-07] VITALS: Ht 182.9 cm; Wt 95.3 kg
[2020-08-07 17:57] LABS: ABSOLUTE NEUTROPHILS 7.1 thou/uL (1.4-8.2); BASOPHILS 1.1 % (0.0-2.0); EOSINOPHILS 1.4 % (0.0-3.0); HEMATOCRIT 26.2 % (42.0-52.0); HEMOGLOBIN 8.2 gm/dL (14.0-18.0); LYMPHOCYTES 10.9 % (24.0-44.0); MCH 27.6 pg (26.0-34.0); MCHC 31.2 g/dL (28.0-37.0); MCV 88.5 fL (80.0-100.0); MONOCYTES 4.5 % (1.0-8.0); PLATELET COUNT 309 thou/uL (150-400); POLYS 82.1 % (36.0-66.0); RBC 2.96 mil/uL (4.50-6.00); RDW 20.1 % (10.5-14.5); WBC 8.6 thou/uL (4.0-11.0)
[2020-08-07 18:06] LABS: CALCIUM 9.6 mg/dL (8.5-10.1); CREATININE 1.5 mg/dL (0.7-1.3); POTASSIUM 3.6 mmol/L (3.5-5.1)
[2020-08-07 18:16] LABS: ALBUMIN 3.1 g/dL (3.4-5.0); TOTAL BILIRUBIN 0.3 mg/dL (0.2-1.0); TOTAL PROTEIN 7.3 g/dL (6.4-8.2); TROPONIN-I 0.06 ng/mL (<0.06)
[2020-08-07] MEDS ORDERED: DOXYCYCLINE 10100 MG PO (19:00)
[2020-08-07] MEDS ORDERED: PREDNISONE 10 M10 M1 PO (19:00)
[2020-08-07 19:09] VITALS: BP 109/59
--- NOTE | 2020-08-08 07:42 | EKG ---
[facility] [place] [address] [address] ELECTROCARDIOGRAM REPORT Name: EVELYN MEEKS Room #: DEP [facility]#: [id number] Admission: 08/07/20 Attend Phys: Discharge: 08/07/20 Date of : 40 Report #: [id number] THIS REPORT FOR: cc: FAM - Family physician unknown FAM - Family physician unknown Dhaval Chadwick MD [facility] ~ THIS REPORT FOR: //name// [facility] ED Test Date: 2020-08-07 Test Time: 17:29:40 Pat Name: EVELYN MEEKS Department: Room: Gender: M Hand Rug Braider: MICK FINCH : 1940 Requested By: Fátima Valdez Order Number: [id number] MD: Dhaval Chadwick Measurements Intervals [place] Rate: 92 P: [place]: QRS: 43 QRSD: 95 T: -2 QT: 360 QTc: 446 Interpretive Statements Atrial fibrillation Compared to ECG 07/13/2020 10:16:16 Ventricular premature complex(es) no longer present Myocardial infarct finding no longer present Electronically Signed On 08-08-2020 7:41:49 CDT by Dhaval Chadwick [email or web address] <ELECTRONICALLY SIGNED> By: Dhaval Chadwick MD, FACC 08/08/20 0741 1729 1729 Dhaval Chadwick MD, [facility] /EPI
== END 2020-08-07 20:32 | disposition home or self-care (01) ==
LOC: ER 15:12
PROVIDERS: Physician Assistant
DX: J44.1 Chronic obstructive pulmonary disease with (acute) exacerbation (principal); I13.0 Hypertensive heart and chronic kidney disease with heart failure and stage 1 through stage 4 chronic kidney disease, or unspecified chronic kidney disease; E11.22 Type 2 diabetes mellitus with diabetic chronic kidney disease; N18.3 Chronic kidney disease, stage 3 (moderate); I50.9 Heart failure, unspecified; I48.91 Unspecified atrial fibrillation; Z87.891 Personal history of nicotine dependence; Z88.8 Allergy status to other drugs, medicaments and biological substances; Z79.899 Other long term (current) drug therapy

== ENCOUNTER 2020-09-05 10:16 | Inpatient (IN) | payer OTHER ==
[~2020-09-05] VITALS: Ht 182.9 cm; Wt 98.0 kg
[~2020-09-05 10:16] MED LIST changes: +DOXYCYCLINE 10100 MG PO
[2020-09-05 10:17] VITALS: BP 128/57
[2020-09-05] MEDS ORDERED: LEVALBUTER0.63 MG/3 IH (10:40)
[2020-09-05] MEDS ORDERED: METOLAZONE 5 MG5 MG PO (10:40)
[2020-09-05] MEDS ORDERED: NOVOLOG100 UNIT/M SUBQ (10:41)
[2020-09-05] MEDS ORDERED: FLOMAX0.4 MG PO (10:41)
[2020-09-05] MEDS ORDERED: PROTONIX40 M4 PO (10:41)
[2020-09-05 11:08] LABS: ABSOLUTE NEUTROPHILS 11.3 thou/uL (1.4-8.2); BASOPHILS 0.3 % (0.0-2.0); EOSINOPHILS 0.2 % (0.0-3.0); HEMATOCRIT 29.2 % (42.0-52.0); LYMPHOCYTES 6.3 % (24.0-44.0); MCHC 30.7 g/dL (28.0-37.0); MCV 81.3 fL (80.0-100.0); MONOCYTES 6.4 % (1.0-8.0); PLATELET COUNT 285 thou/uL (150-400); POLYS 86.8 % (36.0-66.0); RDW 17.2 % (10.5-14.5)
[2020-09-05 11:19] LABS: APTT 30.2 Seconds (24.5-32.8); INR 1.1; PROTIME 11.5 Seconds (9.3-11.4)
[2020-09-05 11:23] LABS: CALCIUM 9.2 mg/dL (8.5-10.1); CREATININE 1.8 mg/dL (0.7-1.3); POTASSIUM 3.5 mmol/L (3.5-5.1)
[2020-09-05 11:25] LABS: BE(vivo) 9.6 mmol/L (-2 to +3); HCO3 35.9 mmol/L (22.0-26.0); PCO2 58.9 mmHg (35.0-45.0); PO2 107.5 mmHg (80.0-100.0); pH 7.403 (7.360-7.450); sO2 97.8 % (92.0-98.0)
[2020-09-05 11:33] LABS: ALBUMIN 2.9 g/dL (3.4-5.0); MAGNESIUM 1.4 mg/dL (1.8-2.4); TOTAL BILIRUBIN 0.6 mg/dL (0.2-1.0); TOTAL PROTEIN 7.2 g/dL (6.4-8.2); TROPONIN-I 0.06 ng/mL (<0.06)
--- NOTE | 2020-09-05 12:32 | EKG ---
[facility] [place] [address] [address] ELECTROCARDIOGRAM REPORT Name: EVELYN MEEKS Room #: [facility]#: [id number] Admission: 09/05/20 Attend Phys: Discharge: Date of : 40 Report #: [id number] THIS REPORT FOR: cc: FAM - Family physician unknown FAM - Family physician unknown Dhaval Chadwick MD [facility] ~ THIS REPORT FOR: //name// [facility] ED Test Date: 2020-09-05 Test Time: 11:25:36 Pat Name: EVELYN MEEKS Department: Room: Gender: M Director Custom: [facility] : 1940 Requested By: Chapincito Chong Order Number: [id number] MD: Dhaval Chadwick Measurements Intervals [place] Rate: 98 P: [place]: QRS: 55 QRSD: 84 T: 11 QT: 336 QTc: 430 Interpretive Statements Atrial fibrillation Minimal ST depression, lateral leads Compared to ECG 08/07/2020 17:29:40 ST (T wave) deviation now present Electronically Signed On 09-05-2020 12:31:53 CDT by Dhaval Chadwick [email or web address] <ELECTRONICALLY SIGNED> By: Dhaval Chadwick MD, FACC 09/05/20 1231 1125 1125 Dhaval Chadwick MD, FAC /EPI
[2020-09-05 13:15] VITALS: BP 91/43
[2020-09-05 14:46] LABS: URINE BILIRUBIN NEGATIVE (Negative); URINE BLOOD NEGATIVE (Negative); URINE CLARITY CLEAR; URINE COLOR YELLOW; URINE GLUCOSE-RANDOM* NEGATIVE (Negative); URINE KETONES NEGATIVE (Negative); URINE LEUKOCYTES-REFLEX 1+ (Negative); URINE NITRITE-REFLEX NEGATIVE (Negative); URINE PROTEIN (DIPSTICK) TRACE (Negative); URINE UROBILINOGEN 0.2 E.U./dl (0.2-1.0)
[2020-09-05 15:03] LABS: BACTERIA-REFLEX 1-9 Few /HPF (None Seen); CRYSTALS None Seen /LPF (None Seen); HYALINE CASTS 0-3 Few /LPF (None Seen); SQUAMOUS None Seen /LPF (0-3); URINE RBC None Seen /HPF (0-2)
[2020-09-05 15:16] LABS: % SATURATION 4 % (20-39); IRON 10 ug/dL (65-175); TIBC 281 ug/dL (250-450)
[2020-09-05 19:55] VITALS: BP 130/60
[2020-09-05 22:30] VITALS: BP 112/55
[2020-09-05 23:44] VITALS: BP 99/65
[2020-09-06] VITALS (7 sets, daily range): BP systolic 100–142; BP diastolic 56–74
--- NOTE | 2020-09-06 03:46 | NUR ---
SHIRAZ FROM LAB CALLED WITH COVID +. NOTIFIED STILL OPERATOR WHISKEY, HS AND PRIMARY NURSE.
--- NOTE | 2020-09-06 05:03 | NUR ---
PT ARRIVED FROM ER VIA CART, PLACED IN ROOM 351. FIRST COVID SWAB REPORTEDLY "NEGATIVE." SECOND SWAB SENT AT MIDNIGHT WITH THE RESULT OF "POSITIVE." LUNCH TRUCK OPERATOR AND SENIOR CYBER SECURITY ANALYST NOTIFIED. PT ON O2 AT 6L PER NC, WHICH HE WEARS AT HOME. PT STATING THAT HE BELIEVES SOME SWELLING HAS ALREADY IMPROVED IN BOTH HIS LEGS. REPORTS MILD SOA WITH MOVEMENT (LYING TO SITTING).
[2020-09-06 06:03] LABS: ABSOLUTE NEUTROPHILS 10.7 thou/uL (1.4-8.2); HEMATOCRIT 27.5 % (42.0-52.0); HEMOGLOBIN 8.4 gm/dL (14.0-18.0); MCH 25.1 pg (26.0-34.0); MCHC 30.5 g/dL (28.0-37.0); MCV 82.3 fL (80.0-100.0); MONOCYTES 2.9 % (1.0-8.0); PLATELET COUNT 234 thou/uL (150-400); POLYS 94.1 % (36.0-66.0); RBC 3.34 mil/uL (4.50-6.00); RDW 16.6 % (10.5-14.5); WBC 11.4 thou/uL (4.0-11.0)
[2020-09-06 06:20] LABS: ALBUMIN 2.4 g/dL (3.4-5.0); ANION GAP 8 mmol/L (7-16); BUN 38 mg/dL (7-18); CALCIUM 9.1 mg/dL (8.5-10.1); CHLORIDE 98 mmol/L (98-107); CO2 35 mmol/L (21-32); GLUCOSE 346 mg/dL (74-106); MAGNESIUM 1.9 mg/dL (1.8-2.4); POTASSIUM 3.7 mmol/L (3.5-5.1); SGOT 12 U/L (15-37); SGPT 12 U/L (30-65); SODIUM 141 mmol/L (136-145); TOTAL BILIRUBIN 0.3 mg/dL (0.2-1.0); TOTAL PROTEIN 6.5 g/dL (6.4-8.2); TROPONIN-I <0.06 ng/mL (<0.06)
--- NOTE | 2020-09-06 07:40 | EKG ---
[facility] [place] [address] ELECTROCARDIOGRAM REPORT Name: EVELYN MEEKS Room #: 351-P ADM IN M.R.#: [id number] Admission: 09/05/20 Attend Phys: Catracho Mendenhall MD Discharge: Date of : 40 Report #: [id number] THIS REPORT FOR: cc: FAM - Family physician unknown FAM - Family physician unknown Gino Mckeon MD [facility] ~ THIS REPORT FOR: //name// [facility] Test Date: 2020-09-06 Test Time: 07:22:46 Pat Name: EVELYN MEEKS Department: Room: [facility] Gender: M Bit Tapper: LASHAWN : 1940 Requested By: Gino Mckeon Order Number: [id number] MD: Gino Mckeon Measurements Intervals [place] Rate: 100 P: [place]: QRS: 66 QRSD: 93 T: 8 QT: 352 QTc: 454 Interpretive Statements Atrial fibrillation Compared to ECG 09/05/2020 11:25:36 No significant change was found Electronically Signed On 09-06-2020 7:39:58 CDT by Gino Mckeon [email or web address] <ELECTRONICALLY SIGNED> By: Gino Mckeon MD, FAC [id number] 1 Gino Mckeon MD, [facility] /EPI
--- NOTE | 2020-09-06 10:06 | NUR ---
ASSUMED PATIENT CARE THIS AM AT APPROXIMATELY 0700. PATIENT IS AWAKE ALERT AND ORIENTED, O2 SAT STABLE ON 6LNC WHICH IS HIS NORMAL O2 LEVEL AT HOME. STATES SOME SOB WITH TALKING AND WHEN GETTING OUT OF BED. PATIENT TOLERATED MEDS ORDERED. ASSISTED PATIENT UP TOBEDSIDE CHAIR WITH MIN STANDYBY ASSISTANCE.
--- NOTE | 2020-09-07 04:20 | NUR ---
PT MAKING SLOW PROGRESS TOWARDS GOALS. LUNGS DIMINISHED THROUGHOUT. ON O2 AT 6L PER NC. PT MILDLY SOA WITH TALKING BUT ABLE TO SPEAK IN NEAR COMPLETE SENTENCES. HE IS ABLE TO TOLERATE STANDING TO URINATE AND TRANSFER SELF FROM CHAIR TO BED.
[2020-09-07 04:52] VITALS: BP 110/56
[2020-09-07 06:06] LABS: ABSOLUTE NEUTROPHILS 12.7 thou/uL (1.4-8.2); BASOPHILS 0.1 % (0.0-2.0); HEMOGLOBIN 8.1 gm/dL (14.0-18.0); LYMPHOCYTES 3.1 % (24.0-44.0); MCH 24.5 pg (26.0-34.0); MCV 81.8 fL (80.0-100.0); MONOCYTES 2.4 % (1.0-8.0); PLATELET COUNT 281 thou/uL (150-400); POLYS 94.4 % (36.0-66.0); RBC 3.31 mil/uL (4.50-6.00); RDW 16.7 % (10.5-14.5); WBC 13.4 thou/uL (4.0-11.0)
[2020-09-07 06:11] LABS: INR 1.2; PROTIME 11.8 Seconds (9.3-11.4)
[2020-09-07 06:16] LABS: FIBRINOGEN 676.6 mg/dL (210-360)
[2020-09-07 06:17] LABS: ALBUMIN 2.6 g/dL (3.4-5.0); CALCIUM 9.1 mg/dL (8.5-10.1); TOTAL BILIRUBIN 0.2 mg/dL (0.2-1.0); TOTAL PROTEIN 6.2 g/dL (6.4-8.2)
[2020-09-07 08:02] VITALS: BP 107/57
--- NOTE | 2020-09-07 15:22 | NUR ---
INITIAL ASSESSMENT: Received consult for discharge planning. DEEPA reviewed chart and spoke with nursing and attending physician. Pt was admitted from home due to cellulitis. Pt placed in Enhanced Isolation due to COVID-19. Pt is afebrile and on 6L of O2. Pt is on IV abx and IV steroids. Pt had convalescent plasma and has started course of Remdesivir. No weekend discharge planned. DEEPA placed call to pt's room. No answer. DEEPA spoke with pt's via phone. Introduced role of SW. Pt and his live at home. There are 3 steps to enter the home and no steps inside. Prior to admission, pt was independent with ADLs. No use of DME for ambulation/mobility. Pt is on 6L continuous O2 through [employer]. No hx of HH services. Pt's PCP is Dr. Yara Don. Plan is for pt to discharge home when medically stable. DEEPA is following to assist as needed with dishcarge planning.
[2020-09-07 16:31] VITALS: BP 101/66
[2020-09-07 19:27] VITALS: BP 120/62
--- NOTE | 2020-09-07 19:55 | NUR ---
PT WITH 6L NC BASELINE INCREASED TO 7L PER PATIENT REQUEST...WILL MONITOR..
[2020-09-08 05:11] VITALS: BP 119/68
--- NOTE | 2020-09-08 06:36 | NUR ---
ASSUMED CARE OF PT FROM DAY SHIFT PT RESTING UP IN CHAIR , NO CONCERNS VOICED, DRESSING CHANGED , AWAKE MOST OF SHIFT,LOOSE NON- PROD COUGH. NO CHANGES NOTED.
[2020-09-08 07:18] VITALS: BP 110/76
[2020-09-08 11:17] VITALS: BP 107/62
[2020-09-08 15:27] VITALS: BP 103/54
[2020-09-08 21:11] VITALS: BP 117/67
--- NOTE | 2020-09-09 03:16 | NUR ---
Patient making slow progress towards outcome goals. Continues to require 7L/NC to maintain optimal saturation. Vital signs and rhythm stable. Denies pain. Up in chair most of the time. High fall risks, uses call lght appropriately for needs.
[2020-09-09 04:56] VITALS: BP 106/61
[2020-09-09 08:58] VITALS: BP 107/63
[2020-09-09 11:06] LABS: CALCIUM 9.2 mg/dL (8.5-10.1); CREATININE 1.9 mg/dL (0.7-1.3)
[2020-09-09 11:08] LABS: POTASSIUM 2.9 mmol/L (3.5-5.1)
[2020-09-09 11:53] VITALS: BP 117/66
[2020-09-09 17:45] VITALS: BP 111/67
--- NOTE | 2020-09-09 18:38 | NUR ---
ASSUMED CARE OF PT AT 0700. PT AOX4 IN NO ACUTE DISTRESS. ON BASELINE O2. REQUESTING MUCINEX - RELAYED TO PHYSICIAN. BLE DRESSED PER ORDER. CALLS APPROPRIATELY. UP W/ SBA. PT PROGRESSING TOWARD POC GOALS. NO OTHER CHANGES TO REPORT. WCM.
[2020-09-09 19:37] VITALS: BP 111/59
[2020-09-09] MEDS ORDERED: LANTUS SUBQ (23:50)
--- NOTE | 2020-09-10 03:32 | NUR ---
Patient making progress towards outcome goals. Vital signs and rhythm stable. Wound care to bilateral lower extemity cellutis slowly improving. High fall risks, fall precautions in place. Call out appropriately for needs.
[2020-09-10 04:11] VITALS: BP 105/60
[2020-09-10 06:21] VITALS: BP 103/65
[2020-09-10 07:35] VITALS: BP 101/66
[2020-09-10 10:36] LABS: CREATININE 1.9 mg/dL (0.7-1.3); POTASSIUM 3.8 mmol/L (3.5-5.1)
[2020-09-10 10:44] LABS: ALBUMIN 2.8 g/dL (3.4-5.0); DIRECT BILIRUBIN 0.3 mg/dL (<0.1-0.2); TOTAL BILIRUBIN 0.4 mg/dL (0.2-1.0); TOTAL PROTEIN 6.2 g/dL (6.4-8.2)
--- NOTE | 2020-09-10 15:39 | NUR ---
DEEPA reviewed chart and spoke with nursing and attending physician. Pt remains in Enhanced Isolation due to COVID-19. Pt is afebrile and on 6L of O2. Pt is on IV abx and IV steroids. Pt to complete course of Remdesivir today. Discharge home is anticipated in 1-2 days. Recommendation made for pt to have HH services. DEEPA placed call to pt's room. No answer. DEEPA will follow up with pt at a later time to discuss discharge plan. DEEPA is following to assist as needed with discharge planning.
--- NOTE | 2020-09-10 18:56 | NUR ---
ASSUMED PATIENT CARE AT 0700. A/O X4. ON 5L/NC. UP WITH ASSISTED. BLE EDEMA GRTTING BETTER. PATIENT PERFER DRESSING CHANGE AT BED TIME. PROGRESSING TOWARDS POC GOALS.
[2020-09-11 03:53] VITALS: BP 112/71
--- NOTE | 2020-09-11 05:15 | NUR ---
PT MAKING SLOW PROGRESS TOWARDS GOALS. DENIES ANY SOA WHILE AT REST, ABLE TO SPEAK IN FULL SENTENCES WITH OBSERVABLE WOB. PT REPORTING THAT HE FEELS THE SWELLING IN HIS LEGS HAS DECREASED. THIS RN DID OBSERVE DECREASED SWELLING IN BOTH FEET AND ANKLES. CONTINUE TO MONITOR.
[2020-09-11 06:32] LABS: ALBUMIN 2.9 g/dL (3.4-5.0); DIRECT BILIRUBIN 0.2 mg/dL (<0.1-0.2); TOTAL BILIRUBIN 0.5 mg/dL (0.2-1.0); TOTAL PROTEIN 6.7 g/dL (6.4-8.2)
[2020-09-11 07:12] VITALS: BP 115/74
--- NOTE | 2020-09-11 08:55 | NUR ---
Assess for length of stay. Admit with SOA, COVID+, and bilateral lower extremity wounds, and edema which has been noted to be improving per documentation manager. Eating well, >75% meals, wts average 200-220 lb past 10 months. Requires diuretic. Edentulous, however ST has deemed pt able to tolerate regular consistencies and has discharged from their service. Pt with hx diabetes and BG highly aggravated with steroids in 300-400 range. Does not have carb control diet restriction so will add. Otherwise low nutrition risk
[2020-09-11 11:23] VITALS: BP 117/73
--- NOTE | 2020-09-11 16:05 | NUR ---
DEEPA reviewed chart and spoke with nursing and attending physician. Pt remains in Enhanced Isolation due to COVID-19. Pt had repeat test yesterday and it was negative. Pt is afebrile and on 5L of O2. Pt is on IV steroids. Discharge home is anticipated for tomorrow. ST ordered to evaluate pt's cognition. DEEPA placed call to pt's room. No answer. DEEPA spoke with pt's via phone to discuss discharge plan: HH services. Pt's declined HH services, stating she feels that pt does need need HH. Pt and have support from their family. Pt's son will be providing transportation home tomorrow and will bring a portable O2 tank. DEEPA updated attending physician. DEEPA is following to assist as needed with discharge planning.
--- NOTE | 2020-09-11 17:39 | NUR ---
CONTINUE WITH CURRENT CARE TODAY AND PT WILL HAVE PSYSCH EVALUATION IN THE AM. PT WANTING TO GO HOME AND REMAINS ON OXYGEN VIA NASAL CANNULA. PT WORKING WITH PT/OT. WILL CONTINUE TO ASSESS.
[2020-09-11 19:35] VITALS: BP 109/63
[2020-09-12 04:26] VITALS: BP 105/63
[2020-09-12 08:08] VITALS: BP 108/56
[2020-09-12 11:46] VITALS: BP 94/61
[2020-09-12] MEDS ORDERED: NITROGLYCERIN0.4 MG SUBLING (11:48)
[2020-09-12] MEDS ORDERED: MELATONIN5 M1 PO (11:48)
[2020-09-12] MEDS ORDERED: VITAMIN D325 MC1 PO (11:48)
[2020-09-12] MEDS ORDERED: ACEROLA C500 MG PO (11:48)
[2020-09-12] MEDS ORDERED: PEPCID20 MG PO (11:48)
[2020-09-12] MEDS ORDERED: PREDNISONE 10 M10 M1 PO (11:48)
[2020-09-12] MEDS ORDERED: DEMADEX20 MG PO (11:48)
[2020-09-12] MEDS ORDERED: HUMALOG100 UNIT/1 SUBQ (11:48)
[2020-09-12] MEDS ORDERED: K-DUR 20 MEQ T20 MEQ PO (11:48)
[2020-09-12] MEDS ORDERED: LANTUS SUBQ (11:48)
[2020-09-12] MEDS ORDERED: LEVOFLOXACIN500 MG PO ×2 (11:48→13:04)
[2020-09-12] MEDS ORDERED: METOLAZONE 2.52.5 MG PO (11:48)
[2020-09-12] MEDS ORDERED: ACETAMINOPHEN325 M1 PO (11:48)
[2020-09-12] MEDS ORDERED: MUCINEX600 MG PO (11:48)
[2020-09-12] MEDS ORDERED: ZINC SULFATE 2220 MG PO (11:48)
[2020-09-12 13:43] VITALS: BP 94/61
--- NOTE | 2020-09-12 15:50 | NUR ---
DISCHARGE NOTE: SW reviewed chart and spoke with nursing and attending physician. Pt is in Enhanced Isolation due to COVID-19. Pt had negative COVID test on 09/10. Pt is afebrile and on 5L of O2. Pt is medically stable for discharge home today. Pt has declined HH services. SW placed call into pt's room. No answer. Nursing asked pt again today and he has declined HH services. Attending physician notified. Pt's son to provide transportation home and bring portable O2 tank. No additional SW needs identified at this time, but is available to assist should needs arise.
== END 2020-09-12 16:41 | disposition home or self-care (01) | DRG 871 ==
LOC: ER 10:16 → 3W 12:59 → EROBS 12:59 → 3W 23:53
PROVIDERS: Emergency Medicine; Internal Medicine; Nurse Practitioner; Specialist; ADMIT Internal Medicine; ATTEND Internal Medicine
DX: A41.9 Sepsis, unspecified organism (principal); U07.1 COVID-19; J96.21 Acute and chronic respiratory failure with hypoxia; I50.33 Acute on chronic diastolic (congestive) heart failure; J12.9 Viral pneumonia, unspecified; G92 Toxic encephalopathy; J96.22 Acute and chronic respiratory failure with hypercapnia; L03.116 Cellulitis of left lower limb; L03.115 Cellulitis of right lower limb; J44.0 Chronic obstructive pulmonary disease with (acute) lower respiratory infection; I48.21 Permanent atrial fibrillation; D68.59 Other primary thrombophilia; I42.9 Cardiomyopathy, unspecified; L97.929 Non-pressure chronic ulcer of unspecified part of left lower leg with unspecified severity; L97.919 Non-pressure chronic ulcer of unspecified part of right lower leg with unspecified severity; I13.0 Hypertensive heart and chronic kidney disease with heart failure and stage 1 through stage 4 chronic kidney disease, or unspecified chronic kidney disease; N18.30 Chronic kidney disease, stage 3 unspecified; E11.22 Type 2 diabetes mellitus with diabetic chronic kidney disease; E88.09 Other disorders of plasma-protein metabolism, not elsewhere classified; E83.42 Hypomagnesemia; I27.20 Pulmonary hypertension, unspecified; D63.8 Anemia in other chronic diseases classified elsewhere; N40.0 Benign prostatic hyperplasia without lower urinary tract symptoms; D50.9 Iron deficiency anemia, unspecified; I35.0 Nonrheumatic aortic (valve) stenosis; E11.65 Type 2 diabetes mellitus with hyperglycemia; F03.90 Unspecified dementia, unspecified severity, without behavioral disturbance, psychotic disturbance, mood disturbance, and anxiety; T38.0X5A Adverse effect of glucocorticoids and synthetic analogues, initial encounter; I87.8 Other specified disorders of veins; K21.9 Gastro-esophageal reflux disease without esophagitis; Z79.01 Long term (current) use of anticoagulants; Z79.4 Long term (current) use of insulin; Z90.49 Acquired absence of other specified parts of digestive tract; Z88.8 Allergy status to other drugs, medicaments and biological substances; Z87.891 Personal history of nicotine dependence; Z99.81 Dependence on supplemental oxygen; Z83.3 Family history of diabetes mellitus; Z82.49 Family history of ischemic heart disease and other diseases of the circulatory system; Y92.89 Other specified places as the place of occurrence of the external cause
CPT/HCPCS: 10879

== ENCOUNTER 2020-09-26 16:01 | Emergency (ER) | payer OTHER ==
[~2020-09-26] VITALS: Ht 182.9 cm; Wt 90.7 kg
[~2020-09-26 16:01] MED LIST changes: +ACEROLA C500 MG PO; +ACETAMINOPHEN325 M1 PO; +HUMALOG100 UNIT/1 SUBQ; +K-DUR 20 MEQ T20 MEQ PO; +LEVALBUTER0.63 MG/3 IH; +LEVOFLOXACIN500 MG PO; +MELATONIN5 M1 PO; +METOLAZONE 2.52.5 MG PO; +NITROGLYCERIN0.4 MG SUBLING; +NOVOLOG100 UNIT/M SUBQ; +PEPCID20 MG PO; +PROTONIX40 M4 PO; +VITAMIN D325 MC1 PO; +ZINC SULFATE 2220 MG PO
[2020-09-26 16:50] VITALS: BP 123/63
== END 2020-09-26 16:50 | disposition home or self-care (01) ==
LOC: ER 16:01
DX: S51.812A Laceration without foreign body of left forearm, initial encounter (principal); I48.91 Unspecified atrial fibrillation; I13.0 Hypertensive heart and chronic kidney disease with heart failure and stage 1 through stage 4 chronic kidney disease, or unspecified chronic kidney disease; E11.22 Type 2 diabetes mellitus with diabetic chronic kidney disease; N18.30 Chronic kidney disease, stage 3 unspecified; I50.9 Heart failure, unspecified; Z79.4 Long term (current) use of insulin; Z79.899 Other long term (current) drug therapy; Z87.891 Personal history of nicotine dependence; Z88.8 Allergy status to other drugs, medicaments and biological substances; W01.0XXA Fall on same level from slipping, tripping and stumbling without subsequent striking against object, initial encounter; Y93.89 Activity, other specified; Y92.89 Other specified places as the place of occurrence of the external cause; Y99.8 Other external cause status

== ENCOUNTER 2020-09-28 10:41 | Emergency (ER) | payer OTHER ==
[~2020-09-28] VITALS: Ht 182.9 cm; Wt 90.7 kg
[2020-09-28 10:44] VITALS: BP 105/60
== END 2020-09-28 11:13 | disposition home or self-care (01) ==
LOC: ER 10:41
DX: S51.812D Laceration without foreign body of left forearm, subsequent encounter (principal); I48.91 Unspecified atrial fibrillation; J44.9 Chronic obstructive pulmonary disease, unspecified; I13.0 Hypertensive heart and chronic kidney disease with heart failure and stage 1 through stage 4 chronic kidney disease, or unspecified chronic kidney disease; N18.30 Chronic kidney disease, stage 3 unspecified; I50.9 Heart failure, unspecified; Z90.49 Acquired absence of other specified parts of digestive tract; Z79.899 Other long term (current) drug therapy; Z79.4 Long term (current) use of insulin; Z88.8 Allergy status to other drugs, medicaments and biological substances; Z87.891 Personal history of nicotine dependence; W22.8XXD Striking against or struck by other objects, subsequent encounter

== ENCOUNTER 2020-10-05 10:53 | Emergency (ER) | payer OTHER ==
[~2020-10-05] VITALS: Ht 182.9 cm; Wt 90.7 kg
[2020-10-05 11:30] VITALS: BP 102/52
== END 2020-10-05 11:30 | disposition home or self-care (01) ==
LOC: ER 10:53
DX: S41.102D Unspecified open wound of left upper arm, subsequent encounter (principal); J44.9 Chronic obstructive pulmonary disease, unspecified; I48.91 Unspecified atrial fibrillation; I12.9 Hypertensive chronic kidney disease with stage 1 through stage 4 chronic kidney disease, or unspecified chronic kidney disease; E11.22 Type 2 diabetes mellitus with diabetic chronic kidney disease; N18.30 Chronic kidney disease, stage 3 unspecified; Z90.49 Acquired absence of other specified parts of digestive tract; Z79.4 Long term (current) use of insulin; Z79.899 Other long term (current) drug therapy; Z87.891 Personal history of nicotine dependence; Z88.8 Allergy status to other drugs, medicaments and biological substances; X58.XXXD Exposure to other specified factors, subsequent encounter

== ENCOUNTER 2020-10-16 01:20 | Emergency (ER) | payer OTHER ==
[~2020-10-16] VITALS: Ht 182.9 cm; Wt 90.7 kg
[2020-10-16 02:50] LABS: ABSOLUTE NEUTROPHILS 6.1 thou/uL (1.4-8.2); ANION GAP 5 mmol/L (7-16); BASOPHILS 0.6 % (0.0-2.0); BUN 44 mg/dL (7-18); CHLORIDE 97 mmol/L (98-107); CO2 36 mmol/L (21-32); EOSINOPHILS 0.7 % (0.0-3.0); GLUCOSE 163 mg/dL (74-106); HEMATOCRIT 28.4 % (42.0-52.0); HEMOGLOBIN 9.1 gm/dL (14.0-18.0); LYMPHOCYTES 19.3 % (24.0-44.0); MCHC 32.1 g/dL (28.0-37.0); MCV 83.9 fL (80.0-100.0); MONOCYTES 8.3 % (1.0-8.0); PLATELET COUNT 247 thou/uL (150-400); POLYS 71.1 % (36.0-66.0); POTASSIUM 3.7 mmol/L (3.5-5.1); RBC 3.39 mil/uL (4.50-6.00); RDW 21.5 % (10.5-14.5); SODIUM 138 mmol/L (136-145); WBC 8.6 thou/uL (4.0-11.0)
[2020-10-16 02:56] LABS: ALBUMIN 2.6 g/dL (3.4-5.0); DIRECT BILIRUBIN < 0.1 mg/dL (<0.1-0.2); SGOT 25 U/L (15-37); SGPT 11 U/L (30-65); TOTAL BILIRUBIN 0.5 mg/dL (0.2-1.0); TOTAL PROTEIN 6.5 g/dL (6.4-8.2)
[2020-10-16] MEDS ORDERED: PREDNISONE 20 M20 MG PO (05:37)
[2020-10-16] MEDS ORDERED: DOXYCYCLINE 10100 M2 PO (05:37)
[2020-10-16 06:22] VITALS: BP 106/58
--- NOTE | 2020-10-17 07:41 | EKG ---
[facility] [place] [address] ELECTROCARDIOGRAM REPORT Name: EVELYN MEEKS Room #: DEP [facility]#: [id number] Admission: 10/16/20 Attend Phys: Discharge: 10/16/20 Date of : 40 Report #: [id number] THIS REPORT FOR: cc: TARA - Meera family physician/PCP TARA - Meera family physician/PCP Gino Mckeon MD [facility] THIS REPORT FOR: //name// [facility] ED Test Date: 2020-10-16 Test Time: 01:27:23 Pat Name: EVELYN MEEKS Department: Room: Gender: Aluminum Siding Applicator: : 1940 Requested By: Augustina Christian Order Number: [id number] MD: Gino Mckeon Measurements Intervals [place] Rate: 103 P: [place]: QRS: 51 QRSD: 92 T: -7 QT: 367 QTc: 481 Interpretive Statements Atrial fibrillation Borderline repol abnormality, diffuse leads Borderline prolonged QT interval Baseline wander in lead(s) V4,V5 Compared to ECG 09/06/2020 07:22:46 No significant changes Electronically Signed On 10-17-2020 7:41:36 SHOT HOLE SHOOTER by Gino Mckeon [email or web address] <ELECTRONICALLY SIGNED> By: Gino Mckeon MD, FAC 10/17/20 0741 0127 0127 Gino Mckeon MD, [facility] /EPI
== END 2020-10-16 06:23 | disposition home or self-care (01) ==
LOC: ER 01:20
PROVIDERS: Emergency Medicine
DX: J44.1 Chronic obstructive pulmonary disease with (acute) exacerbation (principal); I48.91 Unspecified atrial fibrillation; I13.0 Hypertensive heart and chronic kidney disease with heart failure and stage 1 through stage 4 chronic kidney disease, or unspecified chronic kidney disease; E11.22 Type 2 diabetes mellitus with diabetic chronic kidney disease; N18.30 Chronic kidney disease, stage 3 unspecified; I50.9 Heart failure, unspecified; Z79.4 Long term (current) use of insulin; Z79.899 Other long term (current) drug therapy; Z87.891 Personal history of nicotine dependence

== ENCOUNTER 2020-10-28 06:59 | Inpatient (IN) | payer OTHER ==
[~2020-10-28] VITALS: Ht 182.9 cm; Wt 94.8 kg
[~2020-10-28 06:59] MED LIST changes: +DOXYCYCLINE 10100 M2 PO
[2020-10-28 07:00] VITALS: BP 134/59
[2020-10-28 07:28] LABS: HCO3 29.7 mmol/L (22.0-26.0); PCO2 44.7 mmHg (35.0-45.0); PO2 173.7 mmHg (80.0-100.0); pH 7.441 (7.360-7.450); sO2 99.2 % (92.0-98.0)
[2020-10-28 08:40] LABS: HEMATOCRIT 33.1 % (42.0-52.0); HEMOGLOBIN 10.5 gm/dL (14.0-18.0); MCH 27.1 pg (26.0-34.0); MCHC 31.8 g/dL (28.0-37.0); MCV 85.2 fL (80.0-100.0); RBC 3.89 mil/uL (4.50-6.00); RDW 22.8 % (10.5-14.5); WBC 10.4 thou/uL (4.0-11.0)
[2020-10-28 08:53] LABS: ANION GAP 9 mmol/L (7-16); BUN 35 mg/dL (7-18); CALCIUM 10.1 mg/dL (8.5-10.1); CHLORIDE 95 mmol/L (98-107); CO2 32 mmol/L (21-32); CREATININE 2.1 mg/dL (0.7-1.3); GLUCOSE 337 mg/dL (74-106); POTASSIUM 3.5 mmol/L (3.5-5.1); SODIUM 136 mmol/L (136-145)
[2020-10-28 08:55] LABS: PROTIME 10.5 Seconds (9.3-11.4)
[2020-10-28 09:01] LABS: TROPONIN-I <0.06 ng/mL (<0.06)
[2020-10-28 16:52] VITALS: BP 117/73
[2020-10-28 17:59] VITALS: BP 113/62
[2020-10-28 18:39] VITALS: BP 127/77
[2020-10-28 21:01] VITALS: BP 107/65
[2020-10-29 00:11] VITALS: BP 104/54
[2020-10-29 05:32] VITALS: BP 119/74
[2020-10-29 06:26] LABS: CALCIUM 9.5 mg/dL (8.5-10.1); POTASSIUM 3.4 mmol/L (3.5-5.1); TROPONIN-I 0.09 ng/mL (<0.06)
--- NOTE | 2020-10-29 07:33 | EKG ---
[facility] [place] [address] ELECTROCARDIOGRAM REPORT Name: EVELYN MEEKS Room #: 363-P ADM IN M.R.#: [id number] Admission: 10/28/20 Attend Phys: Cristiane Lopez MD Discharge: Date of : 40 Report #: [id number] THIS REPORT FOR: cc: TARA Estes family physician/PCP TARA - Meera family physician/PCP Dhaval Chadwick MD [facility] THIS REPORT FOR: //name// [facility] ED Test Date: 2020-10-28 Test Time: 07:50:25 Pat Name: EVELYN MEEKS Department: Room: [facility] Gender: M Plug Making Operator: meera : 1940 Requested By: Shade Lopes Order Number: [id number] MD: Dhaval Chadwick Measurements Intervals [place] Rate: 128 P: [place]: QRS: 57 QRSD: 86 T: -28 QT: 294 QTc: 429 Interpretive Statements Atrial fibrillation Borderline repolarization abnormality Baseline wander in lead(s) V3,V4 Compared to ECG 10/16/2020 01:27:23 No significant changes Electronically Signed On 10-29-2020 7:33:16 RAISE MINER by Dhaval Chadwick [email or web address] <ELECTRONICALLY SIGNED> By: Dhaval Chadwick MD, FACC 10/29/20 0733 0750 0750 Dhaval Chadwick MD, [facility] /EPI
--- NOTE | 2020-10-29 08:47 | NUR ---
PT ADMITTED FROM HOME, LIVES WITH C/O SOA. HX COVID + 09/06/20. COVID PCR NEGATIVE 10/28/20. AFIB ON MONITOR MAILY LESS THAN 120. DID NOT RESUME CARDIZEM GTT. DR FERGUSON RESUMED CARDIZEM PO THIS AM. HE ELEVATES BRIEFLY WHEN PT IS WALKING TO BSC. SOA NOTD 8LNC WIITH MOVEMENT TO BSC. ENCOURAGED PT TO CALL NS FIRST PRIOR TO GETTING OOB. HE IS NONCOMPLIANT WITH CALLING FIRST. CHAIR ALARM IS ON. PT HAS DENIED PAIN OR CP TONIGHT .LAST TROP 0.09. INSTRUCTED PT ON FALL PRECAUTIONS, CALL LIGHT, ORIENTED TO RM. POC INITIATED.
--- NOTE | 2020-10-29 09:00 | NUR ---
PICTURES TAKEN OF RIGHT BUTTOCK WOUNDS. NO DRESSING NEEDED. 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 MOISTURE BARRIER SUPPLIED AND WIPES.
[2020-10-29 09:02] VITALS: BP 110/62
--- NOTE | 2020-10-29 10:50 | NUR ---
RD consult received. Admit with COVID+ and acute/chronic heart failure. Multiple admission in past. Has right buttocks wound-wound care consulted. Pt generally eats well. BG poorly controlled-will add carb control to diet order. Wts fluctuate in past 200-220 lb with need for diuresis. Current wt 209 lb. Consider low nutrition risk at this time.
[2020-10-29 12:17] VITALS: BP 112/66
--- NOTE | 2020-10-29 14:56 | NUR ---
INITIAL ASSESSMENT: Received consult for discharge planning. SW reviewed chart and spoke with nursing and attending physician. Pt was admitted from home due to afib with RVR/COPD. Pt placed in Enhanced Isolation to r/o COVID-19. Pt had tested positive for COVID in August. Enhanced Isolation precautions have been discontinued. Pt is afebrile and on 8L of O2. Pt is on a cardizem gtt. Pulm consulted. SW placed call to pt's room. No answer. Pt known to SW from previous hospitalizations. Pt is alert/orientated x 4. Pt and his live at home. There are 3 steps to enter the home and no steps inside. Prior to admission, pt was independent with ADLs. No use of DME for ambulation/mobility. Pt is on 6L continuous O2 through [employer]. No hx of services. Pt's PCP is Dr. Yara Don. Plan is for pt to discharge home when medically stable. SW is following to assist as needed with dishcarge planning.
[2020-10-29 17:10] VITALS: BP 114/72
--- NOTE | 2020-10-29 18:10 | NUR ---
PT RESTING IN CHAIR, ABLE TO GET UP AND SIT ON BSC, SPOKE WITH AND UPDATED HER ON PT'S CONDITION AND POC, SHE RECOMMENDED WE GET RESP TREATMENTS FOR PT TO CONTINUE. DR SAXENA ORDERED SOME, PT SOMEWHAT FORGETFUL AND EASILY AGITATED-YELLING AT HIMSELF WHEN HE SPILLS SOMETHING. HE REFUSED A DRESSING ON THE BUTTOCK SKIN TEAR, BARRIER CREAM APPLIED,
[2020-10-29 21:23] VITALS: BP 107/58
[2020-10-30] VITALS (7 sets, daily range): BP systolic 87–117; BP diastolic 40–90
--- NOTE | 2020-10-30 05:38 | NUR ---
ASSESSED PT AT START OF SHIFT. PT SITTING UP IN CHAIR EDUCATED ON ELEVATING FEET. ON 8L OF O2. EVENING MEDS GIVEN AND PT FE IT WELL. BSG CHECKED WITH INSULIN PROVIDED. URINAL AT BEDSIDE. PT UP TO THE BSC. AMMONIUM CREAM APPLIED ON BRIAN LOWER EXT. FALL PREC IN PLACE AND CALL LIGHT IN REACH WILL CONT WITH POC TILL EOS. CALLED UNIT AND NURSE UPDATED ON CARE.
[2020-10-30 08:15] LABS: CALCIUM 9.5 mg/dL (8.5-10.1); CREATININE 2.3 mg/dL (0.7-1.3); POTASSIUM 4.3 mmol/L (3.5-5.1)
--- NOTE | 2020-10-30 13:35 | NUR ---
DEEPA reviewed chart and spoke with nursing and attending physician. Pt is on IV lasix and on 6L of O2. Enhanced Isolation precautions have been discontinued. Pt to transfer to CCU when a bed is available. Discharge home is anticipated for tomorrow. DEEPA placed call to pt's room multiple times. No answer. DEEPA spoke with pt's , Fly, via phone. Introduced role of SW. Pt and live at home. Prior to admission, pt was independent with ADLs. Pt's confirms that 6L of O2 is his baseline. No hx of HH or post-acute placement. Pt's states that pt will not need HH. Pt's son will bring portable O2 tank to the hospital to transport pt home when discharged. Pt's aware that pt will likely discharge tomororw. DEEPA is following to assist as needed with discharge planning.
--- NOTE | 2020-10-30 16:31 | NUR ---
RN ASSUMED PT'S CARE AT 0700AM, PT IS A&OX3, PT IS CONTINUING O2 6L/MIN/NC, PT'S VS ARE STABLE, PT GETS UP TO CHAIR WITH ASSIST, PT IS OFF ISOLATION DUE TO NEGATIVE COVID TEST , PT HAS TRANSHERED TO CCU AT 1600PM.
[2020-10-31] VITALS (7 sets, daily range): BP systolic 91–138; BP diastolic 52–69
--- NOTE | 2020-10-31 04:46 | NUR ---
Assumed pt care at 1900. Pt is alert and oriented. Pt is sitting in chair. No sign of distress noted in pt. Pt prefers sitting in chair. No acute events noted. Pt is stable. Fall precaution in place. Scheduled meds administered to pt. Tolerated PO intake. No acute events overnight. Continue to monitor pt. No further needs at this time
[2020-10-31 05:53] LABS: CALCIUM 9.5 mg/dL (8.5-10.1); CREATININE 2.6 mg/dL (0.7-1.3); POTASSIUM 4.8 mmol/L (3.5-5.1)
[2020-10-31 19:57] LABS: URINE BILIRUBIN NEGATIVE (Negative); URINE BLOOD NEGATIVE (Negative); URINE CLARITY CLEAR; URINE COLOR YELLOW; URINE GLUCOSE-RANDOM* NEGATIVE (Negative); URINE KETONES NEGATIVE (Negative); URINE LEUKOCYTES NEGATIVE (Negative); URINE NITRITE NEGATIVE (Negative); URINE PROTEIN (DIPSTICK) TRACE (Negative); URINE UROBILINOGEN 0.2 E.U./dl (0.2-1.0)
[2020-10-31 20:11] LABS: URINE CREATININE-RANDOM* 94.6 mg/dL
[2020-11-01 04:05] VITALS: BP 112/56
--- NOTE | 2020-11-01 06:03 | NUR ---
Assumed pt care at 1900. Pt was A/OX4 with forgetfulness on initial assessment and talking to his on the phone then went ahead and laid in bed until approx 0300 pt woke up very confused;observed walking w/o oxygen asking multiple times where he's and how he got here since nothing makes sense to him. Pt redirected about his where abouts and oriented A/OX3;called his on the cellphone w/o any problems and indicated he wasn't going to lay down in bed again as that was the cause of his disorientation? Pt resting on the chair,feet dangled refused to have feet elevated despite prompts to r/t edema on BLE. Resting with O2 @ 6L/NC, no distress noted. Will continue to monitor pt.
[2020-11-01 06:16] LABS: ALBUMIN 2.9 g/dL (3.4-5.0); CALCIUM 9.4 mg/dL (8.5-10.1); PHOSPHORUS 3.9 mg/dL (2.5-4.9); POTASSIUM 5.5 mmol/L (3.5-5.1)
[2020-11-01 07:35] VITALS: BP 119/69
[2020-11-01] MEDS ORDERED: PREDNISONE 20 M20 MG PO (10:11)
[2020-11-01] MEDS ORDERED: MAG6464 MG PO (10:11)
[2020-11-01] MEDS ORDERED: CARDIZEM CD 18180 M3 PO (10:11)
[2020-11-01 11:52] VITALS: BP 115/51
[2020-11-01 15:01] VITALS: BP 115/51
--- NOTE | 2020-11-01 15:02 | NUR ---
Pt dcing home today. Blintze Roller spoke with pt's Fly and their son will be here at 4pm to cotton picker operator the pt. He is bringing his portable o2 tank for the ride home. They do not want HH services and will plan to f/u with their pcp next week. Nursing updated. No cm interventions indicated. HH referral declined.
--- NOTE | 2020-11-01 16:16 | NUR ---
ASSUMED CARE AT SHIFT CHANGE, ALERT BUT CONFUSED, AND FORGETFUL AT TIMES. DISCHARGE AND MEDICATIONS INSTRUCTIONS GIVEN TO PATIENT, AND CALLED SPOUSE WELL. PATIENT DISCHAGED HOME WITH SON.
== END 2020-11-01 16:40 | disposition home or self-care (01) | DRG 291 ==
LOC: ER 06:59 → 3W 11:14 → EROBS 11:14 → 2N 11:14 → 3W 18:29 → EROBS 18:36 → 3W 18:36 → 2N 10-30 16:07
PROVIDERS: Emergency Medicine; Internal Medicine; Internal Medicine Nephrology; ADMIT Hospitalist; ATTEND Hospitalist
DX: I13.0 Hypertensive heart and chronic kidney disease with heart failure and stage 1 through stage 4 chronic kidney disease, or unspecified chronic kidney disease (principal); I50.33 Acute on chronic diastolic (congestive) heart failure; L89.313 Pressure ulcer of right buttock, stage 3; J96.21 Acute and chronic respiratory failure with hypoxia; J96.22 Acute and chronic respiratory failure with hypercapnia; I48.21 Permanent atrial fibrillation; L97.829 Non-pressure chronic ulcer of other part of left lower leg with unspecified severity; L97.819 Non-pressure chronic ulcer of other part of right lower leg with unspecified severity; D68.59 Other primary thrombophilia; J44.1 Chronic obstructive pulmonary disease with (acute) exacerbation; N17.9 Acute kidney failure, unspecified; L03.116 Cellulitis of left lower limb; L03.115 Cellulitis of right lower limb; Z20.828 Contact with and (suspected) exposure to other viral communicable diseases; N18.30 Chronic kidney disease, stage 3 unspecified; E11.22 Type 2 diabetes mellitus with diabetic chronic kidney disease; D50.9 Iron deficiency anemia, unspecified; E66.01 Morbid (severe) obesity due to excess calories; N40.0 Benign prostatic hyperplasia without lower urinary tract symptoms; I08.2 Rheumatic disorders of both aortic and tricuspid valves; I27.20 Pulmonary hypertension, unspecified; D63.8 Anemia in other chronic diseases classified elsewhere; T38.0X5A Adverse effect of glucocorticoids and synthetic analogues, initial encounter; Y92.89 Other specified places as the place of occurrence of the external cause; Z90.49 Acquired absence of other specified parts of digestive tract; Z87.891 Personal history of nicotine dependence; Z79.4 Long term (current) use of insulin; Z83.3 Family history of diabetes mellitus; Z82.49 Family history of ischemic heart disease and other diseases of the circulatory system; Z79.01 Long term (current) use of anticoagulants; Z68.28 Body mass index [BMI] 28.0-28.9, adult; Z23 Encounter for immunization; Z79.899 Other long term (current) drug therapy
CPT/HCPCS: 10081; 10879

== ENCOUNTER 2020-11-27 16:32 | Inpatient (IN) | payer OTHER ==
[~2020-11-27] VITALS: Ht 182.9 cm; Wt 95.3 kg
[~2020-11-27 16:32] MED LIST changes: +CARDIZEM CD 18180 M3 PO; +MAG6464 MG PO
[2020-11-27 16:34] VITALS: BP 121/74
[2020-11-27 17:14] LABS: HEMATOCRIT 25.9 % (42.0-52.0); HEMOGLOBIN 8.4 gm/dL (14.0-18.0); MCH 29.3 pg (26.0-34.0); MCHC 32.5 g/dL (28.0-37.0); MCV 90.1 fL (80.0-100.0); PLATELET COUNT 221 thou/uL (150-400); RBC 2.88 mil/uL (4.50-6.00); RDW 22.3 % (10.5-14.5); WBC 8.1 thou/uL (4.0-11.0)
[2020-11-27 17:22] LABS: ANION GAP 5 mmol/L (7-16); BUN 40 mg/dL (7-18); CALCIUM 9.4 mg/dL (8.5-10.1); CHLORIDE 97 mmol/L (98-107); CO2 37 mmol/L (21-32); CREATININE 1.9 mg/dL (0.7-1.3); GLUCOSE 166 mg/dL (74-106); POTASSIUM 3.3 mmol/L (3.5-5.1); SODIUM 139 mmol/L (136-145)
[2020-11-27 17:32] LABS: ALBUMIN 3.1 g/dL (3.4-5.0); DIRECT BILIRUBIN < 0.1 mg/dL (<0.1-0.2); SGOT 15 U/L (15-37); SGPT 17 U/L (16-63); TOTAL BILIRUBIN 0.3 mg/dL (0.2-1.0); TROPONIN-I 0.07 ng/mL (<0.06)
[2020-11-27 17:43] LABS: ABSOLUTE NEUTROPHILS 6.2 thou/uL (1.4-8.2); NUCLEATED RBCS 1 /100WBC
[2020-11-27 17:44] LABS: ANISOCYTOSIS 3+; OVALOCYTES FEW; POLYCHROMASIA SLIGHT
[2020-11-28 05:37] LABS: HEMATOCRIT 28.1 % (42.0-52.0); HEMOGLOBIN 8.8 gm/dL (14.0-18.0); MCH 28.8 pg (26.0-34.0); MCHC 31.3 g/dL (28.0-37.0); MCV 91.8 fL (80.0-100.0); RBC 3.06 mil/uL (4.50-6.00); RDW 22.3 % (10.5-14.5); WBC 7.8 thou/uL (4.0-11.0)
[2020-11-28 06:05] LABS: CALCIUM 9.9 mg/dL (8.5-10.1); CREATININE 2.2 mg/dL (0.7-1.3); TROPONIN-I 0.06 ng/mL (<0.06)
[2020-11-28 06:13] LABS: POTASSIUM 4.5 mmol/L (3.5-5.1)
[2020-11-28 07:20] VITALS: BP 104/52
[2020-11-28 09:34] VITALS: BP 113/58
--- NOTE | 2020-11-28 10:00 | NUR ---
PT HERE FROM ER. PT CURSING AND YELLING, PARTIAL IS DUE TO BEING [place]. HE DIDN'T WANT TO GET INTO THE BED. PT SLEEPS IN RECLINER AT HOME. PT HAS LOWER EXT WRAPPED IN ANU BANDAGE FOR CONTROL OF EDEMA. PT HAS EDEMA TO PEDAL BILATERAL AND ANKLES. PT DIDN'T SEEM SOA WITH OXYGEN ON 6L NC. PT COMPLAINED THAT THIS ALL HAPPENED DUE TO [employer] CHANGING THEIR CANULAS. SHOWED PT CANULA FROM HOSPITAL AND HE SAID THAT OURS IS LONGER IN THE NASAL PRONGS.
[2020-11-28 10:10] VITALS: BP 110/52
--- NOTE | 2020-11-28 11:16 | NUR ---
STARTED MAG 2GM IV AT THIS TIME. PT SITTING UP IN CHAIR. PT WAS OFFERING THIS CHECK CLERK $20. SAID THAT UNABLE TO ACCEPT HIS MONEY AND OFFERED HIM TO USE SAFE DOWN STAIRS HE DECLINED.
--- NOTE | 2020-11-28 11:40 | NUR ---
PT ACCIDENTLY TOOK OUT IV DUE TO EXTRA TAPE ON HIS ARM AND HE PULLED IT OFF AND BLOOD CAME DOWN HIS ARM, HE REALIZED THAT HE PULLED HIS IV OUT. CALLED IV TEAM FOR NEW RESTART.
--- NOTE | 2020-11-28 13:00 | NUR ---
PT STATED CALLS HIS FREQUENTLY AND ASKED HER ABOUT IF HE HAD FLU SHOT OR PNA SHOT, HE HAS HAD BOTH. ALSO STATED HIS CARDS IS ROXI AND HIS PULMONARY DR IS TAY. HE STATED HE USED TO DRINK WHEN HE WORKED ON THE [employer] AND DIDN'T DRINK AT HOME. HE SAID HE SMOKED 3 PACKS OF CIG FROM 13 YR OLD TILL HE GOT WALKING PNA AT 35 YR OLD. 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
--- NOTE | 2020-11-28 13:24 | EKG ---
[address] [place] [address] ELECTROCARDIOGRAM REPORT Name: EVELYN MEEKS Room #: 454-P ADM IN M.R.#: [id number] Admission: 11/27/20 Attend Phys: Ramon Best Discharge: Date of : 40 Report #: [id number] [facility] ED Test Date: 2020-11-27 Test Time: 17:16:09 Pat Name: EVELYN MEEKS Department: Room: 454 Gender: M Glass Mechanic: ankita : 1940 Requested By: Augustina Christian Order Number: [id number] MD: Dhaval Chadwick Measurements Intervals [place] Rate: 78 P: NV: QRS: 43 QRSD: 95 T: -32 QT: 401 QTc: 457 Interpretive Statements Atrial fibrillation Borderline repolarization abnormality Compared to ECG 10/28/2020 07:50:25 No significant changes Electronically Signed On 11-28-2020 13:24:01 FILLING TECHNICIAN by Dhaval Chadwick [email or web address] <ELECTRONICALLY SIGNED> By: Dhaval Chadwick MD, [facility] 11/28/20 1324 1716 1716 Dhaval Chadwick MD, FACC /EPI
--- NOTE | 2020-11-28 14:43 | NUR ---
cm completed an initial assessment to discuss d/c planning. pt is A&Ox4, sitting up in chair in room w/O2 applied via N/C upon arrival. pt stated he used 6l of O2 at home, pt has no other DME. pt lives home w/Marci who spk w/cm via speaker phone, as pt called her while completing assessment. pt denies hx w/ hh or snf. pt has 3-4 stairs to entryway and BR and BR are on the main level. pt's son, Bar, runs errands, pt stated, "I can drive, but I don't drive." Per Marci she and pt try to stay indoors d/t covid 19. cm to cont to follow.
--- NOTE | 2020-11-28 15:07 | 2DMMODE ---
[facility] [place] [address] 2 D/M-MODE ECHOCARDIOGRAM Name: EVELYN MEEKS Room #: 454-P ADM IN M.R.#: [id number] Admission: 11/27/20 Attend Phys: Ramon Best Discharge: Date of : 40 Report #: [id number] THIS REPORT FOR: cc: Yara Don MD, Jennifer S. MD Santiago, Patrick MD [facility] ~ APPROVED REPORT Study performed: 11/28/2020 14:00:30 EXAM: Comprehensive 2D, Doppler, and color-flow Echocardiogram Patient Location: Bedside Room #: 454 Status: routine BSA: 2.13 HR: 82 bpm BP: 109/61 mmHg Rhythm: Atrial Fibrillation Other Information Study Quality: Adequate Indications Aortic Valve Disease Congestive Heart Failure COPD Pulmonary Hypertension Hypertension/HDD 2D Dimensions IVSd: 12.23 (7-11mm) LVOT Diam: 19.54 (18-24mm) LVDd: 44.89 mm PWd: 12.12 (7-11mm) Ascending Ao: 32.92 (22-36mm) LVDs: 32.21 (25-40mm) Aortic Root: 36.48 mm IVC: 31.00 mm Volumes Left Atrial Volume (Systole) Single Plane 4CH: 159.52 mL Single Plane 2CH: 92.36 mL LA ESV Index: 68.00 mL/m2 Aortic Valve AoV Peak Samy.: 5.20 m/s AO Peak Gr.: 108.40 mmHg LVOT Max P.58 mmHg [facility] [address] [place] [address] 2 D/M-MODE ECHOCARDIOGRAM Name: EVELYN MEEKS Room #: 454-P [facility] IN M.R.#: [id number] Admission: 11/27/20 Attend Phys: Ramon Schulz Discharge: Date of : 40 Report #: [id number] AO Mean Gr.: 64.47 mmHg LVOT Mean P.04 mmHg AO V2 Mean: 3.72 m/s LVOT Max V: 0.95 m/s AO V2 VTI: 131.50 cm LVOT Mean V: 0.66 m/s TOD (VTI): 0.56 cm2 LVOT V1 VTI: 24.50 cm TOD Vmax: 0.55 cm2 AI Vmax: 4.35 m/s SV (LVOT): 73.46 mL AI Kershaw: 2.28 m/s2 AI PHT: 552.31 ms Pulmonary Valve PV Peak Samy.: 1.32 m/s PV Peak Gr.: 6.92 mmHg Tricuspid Valve TR Peak Samy.: 3.34 m/s TR Peak Gr.: 44.92 mmHg PA Pressure: 55.00 mmHg Left Ventricle The left ventricle is normal size. There is normal LV segmental wall motion. Mild concentric left ventricular hypertrophy. The left ventricular systolic function is normal. The left ventricular ejection fraction is within the normal range. LVEF is 55-60%. This study is not technically sufficient to allow evaluation of the LV diastolic function due to atrial fibrillation. Right Ventricle The right ventricle is normal size. The right ventricular systolic function is normal. Atria Left atrium is dilated. Right atrium is dilated. Aortic Valve The aortic valve is normal in structure. Aortic valve is calcified. Mild aortic regurgitation. Severe aortic stenosis. Mitral Valve The mitral valve is normal in structure. Mild mitral regurgitation. No evidence of mitral valve stenosis. Tricuspid Valve The tricuspid valve is normal in structure. There is mild tricuspid regurgitation. Estimated PAP 55 mmHg. There is moderate pulmonary hypertension. Pulmonic Valve [address] [address] 2 D/M-MODE ECHOCARDIOGRAM Name: CONSTANTINOEVELYN BAIN Room #: 454-P [facility] IN M.R.#: [id number] Admission: 11/27/20 Attend Phys: Ramon Schulz Discharge: Date of : 40 Report #: [id number] The pulmonary valve is normal in structure. Trace pulmonic regurgitation. Great Vessels The aortic root is normal in size. IVC is dilated and collapses <50% with inspiration. Pericardium There is no pericardial effusion. <Conclusion> Normal left ventricle size with mild concentric hypertrophy EF 55% Normal right ventricle size/function Normal atrial size Color flow Doppler study was performed of the aortic/mitral/tricuspid/pulmonary valve Moderate severe severe aortic valve calcification Severe aortic valvar stenosis the Aortic valve mean gradient of 65 mmHg Aortic valve area estimated 0.56 cm Mild mitral valve insufficiency Mild tricuspid valve insufficiency Moderate- severe pulmonary hypertension PA pressure systolic estimated at 55 mmHg No pericardial effusion <ELECTRONICALLY SIGNED> By: Dhaval Chadwick MD, FACC 11/28/20 1507 06 06 Dhaval Chadwick MD, FACC /INF
--- NOTE | 2020-11-28 17:33 | NUR ---
PT WANTING TO KNOW ABOUT HAVING HIS LEGS REWRAPPED AND STATED THAT WE NEED A DR ORDER TO WRAP HIS LEGS.
--- NOTE | 2020-11-28 18:00 | NUR ---
PT WANTING HIS LEGS WRAPPED, REWRAPPED LE WITH ANU BANDAGE, PT ABLE TO PUT HIS SHOES BACK ON. PT HAS BSC BY BED AND HAD LARGE BM TODAY. PT VOIDED PER URINAL 230ML PLUS IN BSC. PT STATED HE HASN'T VOIDED VERY MUCH TODAY. PT WANTING MORE WATER TO DRINK. GAVE PT FRESH WATER. PT DRANK 750ML OF WATER SO FAR TODAY.
[2020-11-28 20:04] VITALS: BP 103/58
--- NOTE | 2020-11-29 02:54 | NUR ---
PT CARE ASSUMED WITH PT IN CHAIR WATCHING TV.PT CHOOSE TO BE IN CHAIR.PT IS A/O X4.PT IS ACCUCHECK ACHS WITH SSI AND LANTUS AT BEDTIME.PT IS ON 1750/DAILY FLUID RESTRICTION.PT USES URINAL TO VOID.IV ON LFA SL.PT ON 6L OF O2 AND USES 6L OF O2 AT HOME .WILL CONTINUE TO MONITOR
[2020-11-29 06:01] LABS: CALCIUM 9.5 mg/dL (8.5-10.1); CREATININE 2.1 mg/dL (0.7-1.3); POTASSIUM 4.3 mmol/L (3.5-5.1)
[2020-11-29 07:46] VITALS: BP 99/55
[2020-11-29] MEDS ORDERED: PREDNISONE 20 M20 MG PO (09:30)
--- NOTE | 2020-11-29 10:54 | NUR ---
Patient refused therapy today stating he was "going home" . Patient has been discharged home with outpatient follow up no needs.
--- NOTE | 2020-11-29 11:35 | NUR ---
ASSUMED PT CARE THIS AM. PT VSS, A&OX4. PT PLEASANT, COOPERATIVE WITH STAFF. ON 6L NC. PT IN CHAIR, REPOSITIONING SELF. TOOK MEDS WELL THIS AM, WITHOUT COMPLAINT. IV PATENT. NO COMPLAINTS OF PAIN. PT TO BE DISCHARGED TODAY.
[2020-11-29 11:36] VITALS: BP 99/55
== END 2020-11-29 13:41 | disposition home or self-care (01) | DRG 291 ==
LOC: ER 16:32 → 4W 20:20 → EROBS 20:20 → 4W 11-28 08:59
PROVIDERS: Emergency Medicine; Nurse Practitioner; Nurse Practitioner Family; ADMIT Hospitalist; ATTEND Hospitalist
DX: I13.0 Hypertensive heart and chronic kidney disease with heart failure and stage 1 through stage 4 chronic kidney disease, or unspecified chronic kidney disease (principal); I50.33 Acute on chronic diastolic (congestive) heart failure; J96.21 Acute and chronic respiratory failure with hypoxia; J96.22 Acute and chronic respiratory failure with hypercapnia; I48.21 Permanent atrial fibrillation; D68.59 Other primary thrombophilia; J44.1 Chronic obstructive pulmonary disease with (acute) exacerbation; N18.30 Chronic kidney disease, stage 3 unspecified; E11.22 Type 2 diabetes mellitus with diabetic chronic kidney disease; N40.0 Benign prostatic hyperplasia without lower urinary tract symptoms; I27.20 Pulmonary hypertension, unspecified; F03.90 Unspecified dementia, unspecified severity, without behavioral disturbance, psychotic disturbance, mood disturbance, and anxiety; D63.8 Anemia in other chronic diseases classified elsewhere; D50.9 Iron deficiency anemia, unspecified; I08.2 Rheumatic disorders of both aortic and tricuspid valves; Z87.01 Personal history of pneumonia (recurrent); Z79.4 Long term (current) use of insulin; Z90.49 Acquired absence of other specified parts of digestive tract; Z86.19 Personal history of other infectious and parasitic diseases; Z87.891 Personal history of nicotine dependence; Z79.899 Other long term (current) drug therapy
CPT/HCPCS: 10040

== ENCOUNTER 2021-01-26 15:20 | Inpatient (IN) | payer OTHER ==
[~2021-01-26] VITALS: Ht 182.9 cm; Wt 96.2 kg
[2021-01-26 15:25] VITALS: BP 119/54
[2021-01-26 16:54] LABS: ABSOLUTE NEUTROPHILS 10.5 thou/uL (1.4-8.2); BASOPHILS 0.5 % (0.0-2.0); EOSINOPHILS 0.4 % (0.0-3.0); HEMATOCRIT 28.4 % (42.0-52.0); HEMOGLOBIN 8.9 gm/dL (14.0-18.0); LYMPHOCYTES 7.1 % (24.0-44.0); MCH 28.4 pg (26.0-34.0); MCHC 31.4 g/dL (28.0-37.0); MCV 90.5 fL (80.0-100.0); MONOCYTES 3.2 % (1.0-8.0); PLATELET COUNT 281 thou/uL (150-400); POLYS 88.8 % (36.0-66.0); RBC 3.14 mil/uL (4.50-6.00); WBC 11.9 thou/uL (4.0-11.0)
[2021-01-26 17:04] LABS: CALCIUM 9.7 mg/dL (8.5-10.1); CREATININE 1.9 mg/dL (0.7-1.3); POTASSIUM 4.8 mmol/L (3.5-5.1)
[2021-01-26 17:11] LABS: TOTAL BILIRUBIN 0.4 mg/dL (0.2-1.0); TOTAL PROTEIN 7.3 g/dL (6.4-8.2); TROPONIN-I 0.07 ng/mL (<0.06)
[2021-01-26] MEDS ORDERED: PREDNISONE 5 MG5 M1 PO (19:36)
[2021-01-26] MEDS ORDERED: ADVAIR 500-501 EACH INH (19:38)
[2021-01-26] MEDS ORDERED: CO Q-10100 M1 PO (19:41)
[2021-01-26] MEDS ORDERED: PROTONIX40 M2 PO (19:42)
[2021-01-26 20:10] VITALS: BP 124/64
[2021-01-26 20:22] VITALS: BP 0/0
[2021-01-26 20:50] VITALS: BP 122/88
--- NOTE | 2021-01-27 00:52 | NUR ---
PT IS ALERT AND ORIENTED X4. RECEIVED FROM ER FOR WORSENING SOA. R/O COVID. COVID NEGATIVE X1 SO FAR. COVID #2 SENT TO LAB. PT ON 6LNC. RT TX GIVEN. NON-PRODUCTIVE COUGH NOTED. HE IS SITTING UP IN CHAIR AND REFUSED TO GO TO SLEEP IN BED. HE HAS OLD HEALED DECUB ON RIGHT BUTTOCK. HE STATED HE HAD A DONUT AT HOME AND THE WOUND HEALED. OPTI FOAM APPLIED TO HELP RELIEVE PRESSURE TO RIGHT BUTTOCK. MUTIPLE SCABS NOTED TO LOWER EXTREMETIES WHICH HE STATED OCCURRED DUE TO HIM SCRATCHING HIS LEGS. OLDHEALED AREA NOTED RIGHT EAR FROM O2 USE AT HOME. WILL GET EAR PROTECTORS FROM RT AND [facility]. NONE NOTED ON UNIT.
[2021-01-27 03:58] VITALS: BP 115/56
[2021-01-27 04:38] LABS: CALCIUM 9.7 mg/dL (8.5-10.1); CREATININE 2.1 mg/dL (0.7-1.3); POTASSIUM 3.4 mmol/L (3.5-5.1)
[2021-01-27 04:52] LABS: HEMATOCRIT 25.8 % (42.0-52.0); HEMOGLOBIN 8.3 gm/dL (14.0-18.0); MCV 90.4 fL (80.0-100.0); RBC 2.85 mil/uL (4.50-6.00); RDW 17.3 % (10.5-14.5); WBC 10.2 thou/uL (4.0-11.0)
--- NOTE | 2021-01-27 05:45 | NUR ---
VSS AFEBRILE.LASIX GIVEN IV. VOIDING LG AMTS OF CLEAR YELLOW URINE. ENC PT TO KEEP LEGS ELEVATED. PT STILL REFUSING TO GO BACK TO BED TO SLEEP.
[2021-01-27 09:28] VITALS: BP 115/50
--- NOTE | 2021-01-27 14:14 | EKG ---
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 Rental Clerk: : 1940 Requested By: Holden Baltazar Order Number: [id number] MD: Gino Mckeon Measurements Intervals [place] Rate: 92 P: [place]: QRS: 67 QRSD: 83 T: -9 QT: 343 QTc: 425 Interpretive Statements Atrial fibrillation Nonspecific ST segment abnormality Compared to ECG 11/27/2020 17:16:09 No significant changes Electronically Signed On 01-27-2021 14:13:56 VICE PRESIDENT OF BRAND MANAGEMENT by Gino Mckeon [email or web address] <ELECTRONICALLY SIGNED> By: Gino Mckeon MD, [facility] 01/27/21 1413 180 1803 Gino Mckeon MD, FACC /EPI
[2021-01-27 14:35] VITALS: BP 98/58
--- NOTE | 2021-01-27 16:48 | NUR ---
ASSUMED PATIENT CARE AT 0700. A/0 X4. TOLERATED ON 5L/NC. 3+ EDEMA BLE. DENIEA PAIN. COVIDNEGATIVE. SLOWLY TOWARDS POC GOALS.
[2021-01-27 19:55] VITALS: BP 112/57
--- NOTE | 2021-01-27 22:10 | NUR ---
PT RESTING QUIETLY AFTER MEDS GIVEN. NO C/O PAIN. NO COUGH NOTED PRESENTLY. ALERT AND ORIENTED X4. VSS AFEBRIL PT REFUSES TO GO BACK TO BED, SITTING UP IN CHAIR ON A PILLOW FOAM DRESSING INTACT TO R BUTTOCK . LES HAVE SCABS THAT HE SCRSATCHES AT WITH HIS FINGERS.
[2021-01-28 03:38] VITALS: BP 97/54
--- NOTE | 2021-01-28 05:25 | NUR ---
PT PROEGRESSING TOWARDS D/C GOALS. EDEMA IS LESS TO LEGS. ENCOURAGED HIM TO KEEP THEM ELEVATED WHILE IN CHAIR SINCE HE WOULD NOT GO TO SLEEP IN THE BED. HE REFUSED HIS SCDS. SCABS NOTED TO BRIAN LES. ENC PT TO SCRATCH THEM OPEN. OPTIFOAM PAD APPLIED TO R BUTTOCK OLD DECUB TO HELP PREVENT REOPENING, OPTIFOAM APPLIED TO R EAR AROUND TUBING TO PREVENT OLD SORE FROM REOPENING . [place] HAS IMPROVED. LASIX GIVEN ORDERED.
[2021-01-28 07:33] VITALS: BP 100/55
[2021-01-28 09:16] LABS: CALCIUM 9.4 mg/dL (8.5-10.1); CREATININE 2.2 mg/dL (0.7-1.3)
[2021-01-28 09:22] LABS: % SATURATION 8 % (20-39); IRON 23 ug/dL (65-175); TIBC 305 ug/dL (250-450)
--- NOTE | 2021-01-28 11:18 | HC ---
[facility] [place] [address] CONSULTATION Name: EVELYN MEEKS Room #: 354-P ADM IN M.R.#: [id number] Admission: 01/26/21 Attend Phys: Kwabena Peoples MD Discharge: Date of : 40 Report #: [id number] THIS REPORT FOR: cc: Yara Don MD, Jennifer S. MD [facility] [place] [facility] ~ HISTORY OF PRESENT ILLNESS: The patient is an 80-year-old male known to myself. He is followed by Dr. Mckeon, typically of Cardiology. He has a history of multiple admissions for recurrent heart failure. He has underlying COPD and right-sided heart failure in addition, permanent AFib. Also, has had an aortic valve replacement. He has severe aortic stenosis and the most recent calculated valve was 0.7 cm2. It looks like from 10/2020, he has been on Lasix and Demadex 100 and metolazone 2.5. Perhaps some dietary indiscretion. Progressing more short of breath for the last few days. Creatinine is 2.1, his potassium is 3.4, glucose 230. He is diuresing. He was given IV Lasix. He looks to be chronically anemic. His H and H are 9.9 and 25.8, white count is 10.2. His chest x-ray has multiple ground glass opacifications and atypical pneumonitis. His first COVID test is negative. He states he has been compliant with his medications. He is not anticoagulated. MEDICATIONS: His other home medications are insulin, melatonin, diltiazem 180, Mag-Ox, Flomax, atenolol 50, Famotidine and intermittent steroids. Also takes multiple inhalers. PAST MEDICAL HISTORY: Positive for the severe aortic valve stenosis, permanent AFib with a prior ablation, history of recurrent heart failure secondary to diastolic and valvular disease, severe COPD, O2 dependent, chronic kidney disease stage 3-4, insulin-dependent diabetes, iron deficiency anemia, sarcopenia, sleep apnea, prior cellulitis and some early dementia, sundowners. SOCIAL HISTORY: Lives at home with his . He states he can drive, but elects not to. No current alcohol or tobacco, but previously. He was a 2-pack a day smoker. FAMILY HISTORY: He is not sure on premature coronary artery disease. ALLERGIES: No known drug allergies. REVIEW OF SYSTEMS: Essentially negative except for stated above with progressive dyspnea and some nocturia. PHYSICAL EXAMINATION: GENERAL: He is alert. He is sitting up in a chair. He is on oxygen. He is not in distress currently. VITAL SIGNS: Pulse in 90s, in atrial fibrillation, blood pressure 114/60. HEENT: Eyes reveal no xanthelasmas. Pharynx is clear. [facility] [address] [place] [address] CONSULTATION Name: EVELYN MEEKS Room #: 354-P [facility] IN M.R.#: [id number] Admission: 01/26/21 Attend Phys: Kwabena Peoples MD Discharge: Date of : 40 Report #: [id number] NECK: Shows preserved upstrokes. No JVD while sitting up. LUNGS: Prolonged expiratory phase, diminished in the bases. CARDIOVASCULAR: Distant heart tones, irregularly irregular, S1, S2. There is harsh systolic ejection murmur, upper right sternal border. ABDOMEN: Soft. No HSM or abdominal bruit. No abdominal bruit. EXTREMITIES: Reveal some venous stasis changes, some mild edema. I cannot palpate the distal pulses. NEUROLOGIC: Nonfocal. SKIN: Warm and dry. There is no skin breakdown or ulcers, but venous stasis changes. ASSESSMENT: 1. Chronic obstructive pulmonary disease exacerbation. 2. Acute on chronic diastolic dysfunction. 3. Atrial fibrillation with rapid ventricular response. 4. Severe aortic valve stenosis. 5. Chronic hypoxemia, O2 dependent. 6. Chronic kidney disease, stage 3-4. 7. Chronic anemia, probable iron deficient. RECOMMENDATIONS AND PLAN: We will continue with current regimen. The patient is not anticoagulated. It is not exactly clear to me why. We will review our old records and Dr. Mckeon will see in the morning. Could be some question of compliance here. We will repeat his echo in the morning. Continue with IV Lasix for diuresis, rate control and await the second COVID result. We will follow with you. Thank you for asking me to assist in the care of this patient. <ELECTRONICALLY SIGNED> By: David Jimenez MD, FACC 01/28/21 1118 1056 1227 David Jimenez MD, FACC /nt
[2021-01-28 15:19] VITALS: BP 103/59
--- NOTE | 2021-01-28 15:40 | NUR ---
INITIAL ASSESSMENT: Received consult for discharge planning. DEEPA reviewed chart and spoke with nursing and attending physician. Pt was admitted from home due to CHF/COPD exacerbation. Pt placed in Enhanced Isolation to r/o COVID-19. Pt had tested positive for COVID in August of 2020. Pt has had two negative COVID tests since admission. Enhanced Isolation precautions have been discontinued. Pt is afebrile and on 5L of O2. Pt is on IV lasix. DEEPA placed call to pt's room. No answer. Pt known to DEEPA from previous hospitalizations. Pt is alert/orientated x 4. Pt and his live at home. There are 3 steps to enter the home and no steps inside. Prior to admission, pt was independent with ADLs. No use of DME for ambulation/mobility. Pt is on 6L continuous O2 through [facility]. No hx of services. Pt's PCP is Dr. Yara Don. Plan is for pt to discharge home when medically stable. PT/OT ordered to evaluate pt for discharge needs. DEEPA is following to assist as needed with discharge planning.
--- NOTE | 2021-01-28 17:23 | NUR ---
ASSUMED PATIENT CARE AT 0700. A/O X4. NO DISTRESS NOTED. SOB WITH EXERTION. SLOWLY TOWARDS POC GOALS.
[2021-01-28 19:33] VITALS: BP 93/65
--- NOTE | 2021-01-29 00:34 | NUR ---
PT ALERT AND ORIENTED X4. VSS AFEBRILE. SAT IMPROVED TO 95% ON 5LNC. BS DIMINISHED. UNLABORED. MELATONIN GIVEN FOR SLEEP. ZGARD APPLIED TO REDDENED GROIN. WAITING FOR NYSTATIN POWDER. OPTIFOAM APPLIED TO RIGHT OLD HEALED BUTTOCK DECUB. OPTIFOAM INTACT TO RIGHT EAR AROUND O2 TUBING. EDEMA TO LES APPEARS LESS TODAY. ENCOURAGED TO KEEP ELEVATED WHILE UP IN CHAIR. NO C/O PAIN. NO S/S DISTRESS
[2021-01-29 04:02] VITALS: BP 99/59
[2021-01-29 04:45] VITALS: BP 106/76
[2021-01-29 05:49] LABS: HEMATOCRIT 28.6 % (42.0-52.0); MCH 28.4 pg (26.0-34.0); MCHC 31.6 g/dL (28.0-37.0); MCV 89.8 fL (80.0-100.0); RBC 3.18 mil/uL (4.50-6.00); RDW 17.7 % (10.5-14.5); WBC 9.1 thou/uL (4.0-11.0)
[2021-01-29 06:03] LABS: CALCIUM 9.6 mg/dL (8.5-10.1); CREATININE 2.3 mg/dL (0.7-1.3); POTASSIUM 3.7 mmol/L (3.5-5.1)
--- NOTE | 2021-01-29 06:08 | NUR ---
PT RESTING UP IN CHAIR,. NO S/S DISTRESS. READY TO GO HOME HE STATED.
[2021-01-29 07:17] VITALS: BP 98/59
[2021-01-29 07:34] VITALS: BP 102/76
[2021-01-29] MEDS ORDERED: BAYER CHEWABLE81 MG PO (14:02)
[2021-01-29] MEDS ORDERED: PREDNISONE 10 M10 M1 PO (14:03)
--- NOTE | 2021-01-29 14:22 | NUR ---
DISCHARGE NOTE: DEEPA reviewed chart and spoke with nursing and attending physician. Pt is medically stable to discharge home today. DEEPA placed several calls to pt's room. No answer. DEEPA spoke with pt's via phone to provide update and notify of discharge. Pt's son will provide transportation home. Pt's denies having any discharge needs. DEEPA provided number for pt's nurse to call when pt is ready for discharge. SW is available to assist should needs arise.
[2021-01-29 14:33] VITALS: BP 98/59
== END 2021-01-29 15:34 | disposition home or self-care (01) | DRG 291 ==
LOC: ER 15:20 → EROBS 17:49 → 3W 17:49
PROVIDERS: Emergency Medicine; Internal Medicine; ADMIT Hospitalist; ATTEND Hospitalist
DX: I13.0 Hypertensive heart and chronic kidney disease with heart failure and stage 1 through stage 4 chronic kidney disease, or unspecified chronic kidney disease (principal); I50.33 Acute on chronic diastolic (congestive) heart failure; J18.9 Pneumonia, unspecified organism; R65.11 Systemic inflammatory response syndrome (SIRS) of non-infectious origin with acute organ dysfunction; J96.00 Acute respiratory failure, unspecified whether with hypoxia or hypercapnia; I48.21 Permanent atrial fibrillation; N18.4 Chronic kidney disease, stage 4 (severe); J44.1 Chronic obstructive pulmonary disease with (acute) exacerbation; D68.59 Other primary thrombophilia; J44.0 Chronic obstructive pulmonary disease with (acute) lower respiratory infection; E11.22 Type 2 diabetes mellitus with diabetic chronic kidney disease; N40.0 Benign prostatic hyperplasia without lower urinary tract symptoms; F03.90 Unspecified dementia, unspecified severity, without behavioral disturbance, psychotic disturbance, mood disturbance, and anxiety; Z20.822 Contact with and (suspected) exposure to COVID-19; I27.20 Pulmonary hypertension, unspecified; I08.2 Rheumatic disorders of both aortic and tricuspid valves; D63.8 Anemia in other chronic diseases classified elsewhere; D50.9 Iron deficiency anemia, unspecified; Z79.4 Long term (current) use of insulin; Z90.49 Acquired absence of other specified parts of digestive tract; Z86.16 Personal history of COVID-19; Z87.01 Personal history of pneumonia (recurrent); Z87.891 Personal history of nicotine dependence; Z99.81 Dependence on supplemental oxygen; Z79.82 Long term (current) use of aspirin; Z79.899 Other long term (current) drug therapy
CPT/HCPCS: 10879

== ENCOUNTER 2021-02-20 16:50 | Emergency (ER) | payer OTHER ==
[~2021-02-20] VITALS: Ht 182.9 cm; Wt 95.3 kg
[~2021-02-20 16:50] MED LIST changes: +BAYER CHEWABLE81 MG PO; +CO Q-10100 M1 PO; +PROTONIX40 M2 PO
[2021-02-20 16:55] VITALS: BP 99/69
[2021-02-20] MEDS ORDERED: DOXYCYCLINE 10100 MG PO (17:02)
== END 2021-02-20 17:30 | disposition home or self-care (01) ==
LOC: ER 16:50
DX: L03.114 Cellulitis of left upper limb (principal); I48.91 Unspecified atrial fibrillation; J44.9 Chronic obstructive pulmonary disease, unspecified; E11.22 Type 2 diabetes mellitus with diabetic chronic kidney disease; I13.0 Hypertensive heart and chronic kidney disease with heart failure and stage 1 through stage 4 chronic kidney disease, or unspecified chronic kidney disease; N18.30 Chronic kidney disease, stage 3 unspecified; I50.9 Heart failure, unspecified; Z79.4 Long term (current) use of insulin; Z79.899 Other long term (current) drug therapy; Z87.891 Personal history of nicotine dependence

== ENCOUNTER 2021-02-22 16:29 | Inpatient (IN) | payer OTHER ==
[~2021-02-22] VITALS: Ht 177.8 cm; Wt 95.3 kg
[2021-02-22 16:30] VITALS: BP 95/42
--- NOTE | 2021-02-22 17:30 | NUR ---
PT TALKING ON PHONE. NO DISTRESS NOTED.
[2021-02-22 19:44] LABS: ABSOLUTE NEUTROPHILS 6.5 thou/uL (1.4-8.2); HEMOGLOBIN 8.7 gm/dL (14.0-18.0); LYMPHOCYTES 16.2 % (24.0-44.0); MCH 29.3 pg (26.0-34.0); MCV 91.5 fL (80.0-100.0); MONOCYTES 3.9 % (1.0-8.0); PLATELET COUNT 269 thou/uL (150-400); POLYS 77.9 % (36.0-66.0); RBC 2.95 mil/uL (4.50-6.00); RDW 18.7 % (10.5-14.5); WBC 8.4 thou/uL (4.0-11.0)
[2021-02-22 19:58] LABS: CALCIUM 9.9 mg/dL (8.5-10.1); CREATININE 2.3 mg/dL (0.7-1.3); POTASSIUM 5.1 mmol/L (3.5-5.1)
[2021-02-22 20:09] LABS: ALBUMIN 2.7 g/dL (3.4-5.0); TOTAL BILIRUBIN 0.3 mg/dL (0.2-1.0); TOTAL PROTEIN 6.9 g/dL (6.4-8.2); TROPONIN-I 0.08 ng/mL (<0.06)
[2021-02-22 20:36] LABS: URINE BILIRUBIN NEGATIVE (Negative); URINE BLOOD 1+ (Negative); URINE CLARITY TURBID; URINE COLOR YELLOW; URINE GLUCOSE-RANDOM* NEGATIVE (Negative); URINE KETONES NEGATIVE (Negative); URINE NITRITE-REFLEX NEGATIVE (Negative); URINE PROTEIN (DIPSTICK) NEGATIVE (Negative); URINE UROBILINOGEN 0.2 E.U./dl (0.2-1.0)
[2021-02-22 20:41] LABS: URINE LEUKOCYTES-REFLEX 3+ (Negative)
[2021-02-22 20:45] LABS: CASTS None Seen /LPF (None Seen); CRYSTALS None Seen /LPF (None Seen); MUCUS 0-3 Light strn/LPF (None Seen); SQUAMOUS 0-3 Few /LPF (0-3); URINE RBC 3-10 Few /HPF (0-2); URINE WBC-REFLEX >25 Many /HPF (0-5); WBC CLUMPS Packed (None Seen)
[2021-02-22] MEDS ORDERED: XOPENEX CO1.25 MG/0. INH (21:31)
[2021-02-22] MEDS ORDERED: NOVOLOG FL100 UNIT/M SUBQ (21:33)
[2021-02-22 21:35] VITALS: BP 119/67
[2021-02-22] MEDS ORDERED: SPIRIVA INH (21:35)
--- NOTE | 2021-02-22 21:54 | NUR ---
NURSE UNABLE TO TAKE REPORT. REPORTS WILL CALL BACK
[2021-02-22 22:43] VITALS: BP 116/43
--- NOTE | 2021-02-23 00:08 | NUR ---
admission to [facility]. denies pain. he is needing 6 liters of o2 tonight. sitting up in the chair. per his request. he is lonely and stated that he likes visitors. he does not think he needs home health care. but it sounds like his and him strugggle at home with shahzad y activities.
[2021-02-23] MEDS ORDERED: LUMIFY2.5 ML OPHTHALMIC (02:04)
--- NOTE | 2021-02-23 03:52 | NUR ---
covid negative this am. no covid symptoms or exposure, cxr negative. pulled isolation.
[2021-02-23 04:30] VITALS: BP 99/47
[2021-02-23 07:38] VITALS: BP 91/49
[2021-02-23 11:38] VITALS: BP 115/91
--- NOTE | 2021-02-23 18:19 | NUR ---
PATIENT HAS RESTED IN BED THROUGH THE DAY. HE STATES HE DOES NOT FEEL WELL. STILL HAS A LOT OF DIFFICULTY BREATHING. HE DOES NOT SEEM TO BE IN PAIN BUT IN DISTRESS. PLEASANT WITH CARES. CONT ON ABT. WILL CONT WITH PLAN OF CARE.
--- NOTE | 2021-02-23 19:18 | NUR ---
UP ON THE CHAIR MOST OF THE DAY. HE HAS NOT VOICED ANY COMPLAIN OF PAIN. WILL CONT WITH PLAN OF CARE.
[2021-02-23 22:11] VITALS: BP 92/59
[2021-02-24 03:44] VITALS: BP 105/35
[2021-02-24 03:58] LABS: CALCIUM 9.2 mg/dL (8.5-10.1); CREATININE 2.9 mg/dL (0.7-1.3); MAGNESIUM 2.1 mg/dL (1.8-2.4); POTASSIUM 4.6 mmol/L (3.5-5.1)
[2021-02-24 04:29] LABS: HEMATOCRIT 23.3 % (42.0-52.0); HEMOGLOBIN 7.6 gm/dL (14.0-18.0); MCH 29.4 pg (26.0-34.0); MCHC 32.7 g/dL (28.0-37.0); MCV 89.8 fL (80.0-100.0); RBC 2.59 mil/uL (4.50-6.00); RDW 18.6 % (10.5-14.5); WBC 7.2 thou/uL (4.0-11.0)
--- NOTE | 2021-02-24 05:17 | NUR ---
resting quietly tonight. increased his sliding scale insulin. denies pain.
[2021-02-24 08:56] VITALS: BP 103/46
--- NOTE | 2021-02-24 11:24 | EKG ---
[address] [place] [address] ELECTROCARDIOGRAM REPORT Name: EVELYN MEEKS Room #: 360-P ADM IN M.R.#: [id number] Admission: 02/22/21 Attend Phys: Alise Alegre MD Discharge: Date of : 40 Report #: [id number] [facility] ED Test Date: 2021-02-22 Test Time: 19:18:11 Pat Name: EVELYN MEEKS Department: Room: 360 Gender: M Endoscopy Support Specialist: JCHAIALISA : 1940 Requested By: Holden Baltazar Order Number: [id number] MD: Dhaval Chadwick Measurements Intervals [place] Rate: 71 P: [place]: QRS: 73 QRSD: 89 T: 37 QT: 416 QTc: 453 Interpretive Statements Atrial fibrillation Minimal ST depression, inferior leads Baseline wander in lead(s) V6 Compared to ECG 01/26/2021 18:03:59 No significant changes Electronically Signed On 02-24-2021 11:23:58 CDT by Dhaval Chadwick [email or web address] <ELECTRONICALLY SIGNED> By: Dhaval Chadwick MD, [facility] 02/24/21 1123 17 17 Dhaval Chadwick MD, FACC /EPI
[2021-02-24 11:59] VITALS: BP 100/41
[2021-02-24 17:57] VITALS: BP 106/66
[2021-02-24 20:26] VITALS: BP 104/61
[2021-02-25 05:25] VITALS: BP 106/51
[2021-02-25 05:47] LABS: HEMATOCRIT 24.4 % (42.0-52.0); HEMOGLOBIN 7.9 gm/dL (14.0-18.0); MCH 29.5 pg (26.0-34.0); MCHC 32.6 g/dL (28.0-37.0); MCV 90.5 fL (80.0-100.0); RBC 2.69 mil/uL (4.50-6.00); RDW 18.6 % (10.5-14.5); WBC 6.2 thou/uL (4.0-11.0)
[2021-02-25 06:03] LABS: CREATININE 2.6 mg/dL (0.7-1.3)
[2021-02-25 07:31] VITALS: BP 116/51
[2021-02-25 11:11] VITALS: BP 113/60
--- NOTE | 2021-02-25 11:35 | NUR ---
WOUND CONSULT; THE PATIENT IS HARD OF HEARING AND APPEARS ANGRY BUT IS NOT. THERE ARE NO WOUNDS TO THE BUTTOCKS. RECOMMENDATIONS; 1-APPLY BARRIERNCREAM DAILY/PRN 2-TURN Q2H AND DOCUMENT. NO NEED TO FOLLOW
--- NOTE | 2021-02-25 15:09 | NUR ---
INITIAL ASSESSMENT: Received consult for discharge planning. SW reviewed chart and spoke with nursing and attending physician. Pt was admitted from home due to CHF/COPD exacerbation. Pt placed in Enhanced Isolation to r/o COVID-19. Pt had tested positive for COVID in August of 2020. Pt had negative COVID test on 02/22. Enhanced Isolation precautions have been discontinued. Pt is afebrile and on 6L of O2. Pt is on IV abx, Iv steroids and IV lasix. SW met with pt at bedside. Introduced role of SW. Pt known to SW from previous hospitalizations. Pt is alert/orientated x 4. Pt and his live at home. There are 3 steps to enter the home and no steps inside. Prior to admission, pt was independent with ADLs. No use of DME for ambulation/mobility. Pt is on 6L continuous O2 through [facility]. No hx of services. Pt's PCP is Dr. Yara Don. Plan is for pt to discharge home when medically stable. Discharge home is anticipated for tomorrow. DEEPA is following to assist as needed with discharge planning.
[2021-02-25 15:11] VITALS: BP 104/46
[2021-02-25 19:41] VITALS: BP 112/59
--- NOTE | 2021-02-25 21:41 | NUR ---
PT SITTING UP IN CHAIR WATCHING BASKETBALL. PT SPEAKS LOUDLY, [place], PT NOT SOA WITH CONVERSATION. PT VERY HAPPY AND EXCITED RE [employer] GAMES. LUNGS DIMINISHED. BLE EDEMA, OBESE. O2 PER NC. PT REPORTED EATING A LARGE LUNCH AND ONLY ICE CREAM FOR DINNER. PT REQUESTED PRN FOR SLEEP AND PROVIDED.
[2021-02-26 04:13] VITALS: BP 111/66
[2021-02-26 04:26] LABS: HEMATOCRIT 24.4 % (42.0-52.0); MCH 29.2 pg (26.0-34.0); MCHC 32.6 g/dL (28.0-37.0); MCV 89.4 fL (80.0-100.0); RBC 2.73 mil/uL (4.50-6.00); RDW 19.1 % (10.5-14.5); WBC 7.1 thou/uL (4.0-11.0)
[2021-02-26 04:46] LABS: CALCIUM 9.1 mg/dL (8.5-10.1); CREATININE 2.2 mg/dL (0.7-1.3); POTASSIUM 3.2 mmol/L (3.5-5.1)
[2021-02-26 06:50] VITALS: BP 100/55
[2021-02-26 11:17] VITALS: BP 144/76
[2021-02-26 11:23] VITALS: BP 116/71
--- NOTE | 2021-02-26 14:59 | NUR ---
SW reviewed chart and spoke with nursing and attending physician. Pt is on 6L of O2. Pt is on IV Lasix, IV abx, IV steroids and IV iron. Plan is for pt to discharge home when medically stable. Pt will not have any discharge needs. DEEPA is following to assist as needed with discharge planning.
[2021-02-26 15:24] VITALS: BP 119/60
[2021-02-26 20:24] VITALS: BP 117/59
[2021-02-27 04:06] VITALS: BP 128/63
[2021-02-27 05:26] LABS: HEMATOCRIT 27.8 % (42.0-52.0); HEMOGLOBIN 8.8 gm/dL (14.0-18.0); MCH 28.7 pg (26.0-34.0); MCHC 31.7 g/dL (28.0-37.0); MCV 90.5 fL (80.0-100.0); RBC 3.07 mil/uL (4.50-6.00); RDW 19.3 % (10.5-14.5); WBC 7.5 thou/uL (4.0-11.0)
[2021-02-27 05:27] LABS: CALCIUM 9.5 mg/dL (8.5-10.1); CREATININE 2.1 mg/dL (0.7-1.3); POTASSIUM 3.5 mmol/L (3.5-5.1)
--- NOTE | 2021-02-27 06:28 | NUR ---
PT SLEPT IN CHAIR ALL EVENING. ONLY COMPLAINT IS IV AND PT WANTS TO MOVE TO ORAL MEDICATION. PT REFUSES IV LASIX. VSS OVERNIGHT.
[2021-02-27 07:42] VITALS: BP 119/69
[2021-02-27 11:17] VITALS: BP 115/56
--- NOTE | 2021-02-27 13:57 | NUR ---
SW reviewed chart and spoke with nursing and attending physician. Pt is progressing towards for discharge. Discharge home is anticipated for tomorrow. Pt remains on IV abx, IV lasix and IV steroids. Pt also on IV iron. Pt will discharge home. DEEPA is following to assist as needed with discharge planning.
[2021-02-27 15:16] VITALS: BP 107/62
--- NOTE | 2021-02-27 19:22 | NUR ---
Pt reports "burning pain" with IV meds given early this am before day shift, and states he doesn't want any more IV meds if possible. All IV meds now dc'd and po meds ordered. Will likely be discharged tomorrow. VSS.
[2021-02-27 19:30] VITALS: BP 113/72
[2021-02-28 04:23] VITALS: BP 130/56
--- NOTE | 2021-02-28 06:08 | NUR ---
VSS OVERNIGHT, BLOOD SUGARS ARE COMING DOWN, TELE MONITOR SHOWS AFIB. PT IS READY TO GO HOME HE STATES. PT HAS GOOD URINE OUTPUT WITH 2000+. PT UP TO CHAIR OVERNIGHT. HOURLY ROUNDING.
--- NOTE | 2021-02-28 14:57 | NUR ---
DISCHARGE NOTE: SW reviewed chart and spoke with nursing and attending physician. Pt is medically stable for discharge home today. No discharge needs identified. Pt's family to provide transportation home. SW is available to assist should needs arise.
[2021-02-28] MEDS ORDERED: LEVOFLOXACIN500 MG PO (15:47)
[2021-02-28 15:57] VITALS: BP 130/56
== END 2021-02-28 16:27 | disposition home or self-care (01) | DRG 291 ==
LOC: ER 16:29 → EROBS 21:18 → 3W 21:18
PROVIDERS: Emergency Medicine; Hospitalist; Internal Medicine; Nurse Practitioner; ADMIT Internal Medicine; ATTEND Internal Medicine
DX: I13.0 Hypertensive heart and chronic kidney disease with heart failure and stage 1 through stage 4 chronic kidney disease, or unspecified chronic kidney disease (principal); I50.33 Acute on chronic diastolic (congestive) heart failure; N17.0 Acute kidney failure with tubular necrosis; J96.21 Acute and chronic respiratory failure with hypoxia; J96.22 Acute and chronic respiratory failure with hypercapnia; N39.0 Urinary tract infection, site not specified; E44.0 Moderate protein-calorie malnutrition; D68.59 Other primary thrombophilia; I48.21 Permanent atrial fibrillation; I27.20 Pulmonary hypertension, unspecified; D63.8 Anemia in other chronic diseases classified elsewhere; R53.81 Other malaise; D50.9 Iron deficiency anemia, unspecified; I87.8 Other specified disorders of veins; I35.0 Nonrheumatic aortic (valve) stenosis; B95.2 Enterococcus as the cause of diseases classified elsewhere; E87.70 Fluid overload, unspecified; N40.1 Benign prostatic hyperplasia with lower urinary tract symptoms; R77.8 Other specified abnormalities of plasma proteins; Z20.822 Contact with and (suspected) exposure to COVID-19; N18.30 Chronic kidney disease, stage 3 unspecified; E11.22 Type 2 diabetes mellitus with diabetic chronic kidney disease; Z79.4 Long term (current) use of insulin; Z90.49 Acquired absence of other specified parts of digestive tract; Z86.16 Personal history of COVID-19; Z87.891 Personal history of nicotine dependence
CPT/HCPCS: 10879

== ENCOUNTER 2021-03-17 18:40 | Emergency (ER) | payer OTHER ==
[~2021-03-17] VITALS: Ht 182.9 cm; Wt 90.7 kg
[~2021-03-17 18:40] MED LIST changes: +LUMIFY2.5 ML OPHTHALMIC; +NOVOLOG FL100 UNIT/M SUBQ; +XOPENEX CO1.25 MG/0. INH
[2021-03-17 19:10] VITALS: BP 112/47
== END 2021-03-17 19:57 | disposition home or self-care (01) ==
LOC: ER 18:40
DX: S51.811A Laceration without foreign body of right forearm, initial encounter (principal); I13.0 Hypertensive heart and chronic kidney disease with heart failure and stage 1 through stage 4 chronic kidney disease, or unspecified chronic kidney disease; E11.22 Type 2 diabetes mellitus with diabetic chronic kidney disease; N18.30 Chronic kidney disease, stage 3 unspecified; I50.9 Heart failure, unspecified; I48.91 Unspecified atrial fibrillation; Z87.891 Personal history of nicotine dependence; Z79.899 Other long term (current) drug therapy; Z79.82 Long term (current) use of aspirin; W18.09XA Striking against other object with subsequent fall, initial encounter; Y93.01 Activity, walking, marching and hiking; Y92.89 Other specified places as the place of occurrence of the external cause; Y99.9 Unspecified external cause status

== ENCOUNTER 2021-03-24 12:12 | Emergency (ER) | payer OTHER ==
[~2021-03-24] VITALS: Ht 182.9 cm; Wt 90.7 kg
[2021-03-24 12:22] VITALS: BP 108/54
[2021-03-24] MEDS ORDERED: NEOSPORIN OIN28.3 GM TOP (12:33)
[2021-03-24] MEDS ORDERED: CEPHALEXIN500 MG PO (12:33)
== END 2021-03-24 13:03 | disposition home or self-care (01) ==
LOC: ER 12:12
DX: S51.811D Laceration without foreign body of right forearm, subsequent encounter (principal); I13.0 Hypertensive heart and chronic kidney disease with heart failure and stage 1 through stage 4 chronic kidney disease, or unspecified chronic kidney disease; E11.22 Type 2 diabetes mellitus with diabetic chronic kidney disease; N18.30 Chronic kidney disease, stage 3 unspecified; I50.9 Heart failure, unspecified; I48.91 Unspecified atrial fibrillation; J96.10 Chronic respiratory failure, unspecified whether with hypoxia or hypercapnia; J44.9 Chronic obstructive pulmonary disease, unspecified; Z90.89 Acquired absence of other organs; Z79.4 Long term (current) use of insulin; Z79.899 Other long term (current) drug therapy; W22.8XXD Striking against or struck by other objects, subsequent encounter

== ENCOUNTER 2021-03-28 14:57 | Inpatient (IN) | payer OTHER ==
[~2021-03-28] VITALS: Ht 182.9 cm; Wt 90.3 kg
[~2021-03-28 14:57] MED LIST changes: +CEPHALEXIN500 MG PO; +NEOSPORIN OIN28.3 GM TOP
[2021-03-28 15:02] VITALS: BP 94/39
[2021-03-28 15:35] LABS: HEMATOCRIT 24.8 % (42.0-52.0); HEMOGLOBIN 8.2 gm/dL (14.0-18.0); MCH 30.4 pg (26.0-34.0); MCHC 33.2 g/dL (28.0-37.0); MCV 91.6 fL (80.0-100.0); PLATELET COUNT 284 thou/uL (150-400); RBC 2.71 mil/uL (4.50-6.00); RDW 20.2 % (10.5-14.5); WBC 11.3 thou/uL (4.0-11.0)
[2021-03-28 15:43] LABS: ANION GAP 5 mmol/L (7-16); BUN 43 mg/dL (7-18); CHLORIDE 97 mmol/L (98-107); CO2 34 mmol/L (21-32); CREATININE 2.2 mg/dL (0.7-1.3); GLUCOSE 253 mg/dL (74-106); SODIUM 136 mmol/L (136-145)
[2021-03-28 15:49] LABS: URINE BILIRUBIN NEGATIVE (Negative); URINE BLOOD 2+ (Negative); URINE COLOR YELLOW; URINE GLUCOSE-RANDOM* NEGATIVE (Negative); URINE KETONES NEGATIVE (Negative); URINE NITRITE-REFLEX NEGATIVE (Negative); URINE PROTEIN (DIPSTICK) 2+ (Negative); URINE SPECIFIC GRAVITY 1.015 (1.005-1.035); URINE UROBILINOGEN 0.2 E.U./dl (0.2-1.0)
[2021-03-28 15:50] LABS: BE(vivo) 8.8 mmol/L (-2 to +3); PCO2 50.9 mmHg (35.0-45.0); PO2 82.7 mmHg (80.0-100.0); pH 7.442 (7.360-7.450); sO2 96.4 % (92.0-98.0)
[2021-03-28 15:51] LABS: URINE CLARITY SL HAZY; URINE LEUKOCYTES-REFLEX 3+ (Negative)
[2021-03-28 15:54] LABS: ALBUMIN 2.9 g/dL (3.4-5.0); DIRECT BILIRUBIN 0.1 mg/dL (<0.1-0.2); MAGNESIUM 2.2 mg/dL (1.8-2.4); PHOSPHORUS 3.6 mg/dL (2.6-4.7); SGOT 21 U/L (15-37); SGPT 14 U/L (16-63); TOTAL BILIRUBIN 0.3 mg/dL (0.2-1.0); TOTAL PROTEIN 6.9 g/dL (6.4-8.2); TROPONIN-I <0.06 ng/mL (<0.06)
[2021-03-28 15:56] LABS: SQUAMOUS None Seen /LPF (0-3); URINE WBC-REFLEX >25 Many /HPF (0-5)
[2021-03-28 15:57] LABS: BACTERIA-REFLEX 1-9 Few /HPF (None Seen); CASTS None Seen /LPF (None Seen); CRYSTALS None Seen /LPF (None Seen); URINE RBC 3-10 Few /HPF (NONE SEEN)
[2021-03-28 16:12] LABS: METAMYELOCYTES 1 %
[2021-03-28 16:13] LABS: ABSOLUTE NEUTROPHILS 8.7 thou/uL (1.4-8.2); ANISOCYTOSIS 1+; MYELOCYTES 1 %
--- NOTE | 2021-03-28 16:28 | EKG ---
[address] [place] [address] ELECTROCARDIOGRAM REPORT Name: EVELYN MEEKS [id number] Admission: 03/28/21 Attend Phys: Discharge: Date of : 40 Report #: [id number] [facility] ED Test Date: 2021-03-28 Test Time: 15:51:44 Pat Name: EVELYN MEEKS Department: Room: Gender: M Tobacco Farmworker: ANALY : 1940 Requested By: Huey Sage Order Number: [id number] MD: Dhaval Chadwick Measurements Intervals [place] Rate: 89 P: [place]: QRS: 64 QRSD: 88 T: -28 QT: 365 QTc: 445 Interpretive Statements Atrial fibrillation Borderline repolarization abnormality Compared to ECG 02/22/2021 19:18:11 ST (T wave) deviation no longer present Electronically Signed On 03-28-2021 16:28:14 CDT by Dhaval Chadwick [email or web address] <ELECTRONICALLY SIGNED> By: Dhaval Chadwick MD, [facility] 03/28/21 1628 1551 1551 Dhaval Chadwick MD, FACC /EPI
[2021-03-28 19:15] VITALS: BP 108/62
[2021-03-28 19:41] VITALS: BP 108/62
[2021-03-28 20:00] VITALS: BP 107/58
[2021-03-28] MEDS ORDERED: MACROBID 100 M100 MG PO (22:34)
[2021-03-29 00:10] VITALS: BP 105/45
--- NOTE | 2021-03-29 00:10 | NUR ---
PATIENT IS A NEW ADMISSION TO THE UNIT THIS SHIFT. HE ARRIVED VIA CART FROM THE ER AND WAS ABLE TO AMBULATE TO THE BED WITH ASSISTANCE INCIDENT FREE. PATIENT IS ALERT AND ORIENTED BUT HIGHLY FORGETFUL AND SOMETIMES IMPULSIVE. NO COMPLAINTS OF PAIN OR SHORTNESS OF BREATHE. NURSE TO COMPLETE ADMISSION AND INITIATE PLAN OF CARE.
[2021-03-29 04:00] VITALS: BP 93/46
[2021-03-29 05:01] LABS: ABSOLUTE NEUTROPHILS 8.9 thou/uL (1.4-8.2); BASOPHILS 0.8 % (0.0-2.0); EOSINOPHILS 1.2 % (0.0-3.0); HEMATOCRIT 24.8 % (42.0-52.0); HEMOGLOBIN 7.9 gm/dL (14.0-18.0); LYMPHOCYTES 11.8 % (24.0-44.0); MCH 29.2 pg (26.0-34.0); MCHC 31.9 g/dL (28.0-37.0); MCV 91.7 fL (80.0-100.0); MONOCYTES 6.3 % (1.0-8.0); PLATELET COUNT 280 thou/uL (150-400); POLYS 79.9 % (36.0-66.0); WBC 11.2 thou/uL (4.0-11.0)
[2021-03-29 05:11] LABS: CALCIUM 9.2 mg/dL (8.5-10.1); CREATININE 2.2 mg/dL (0.7-1.3); MAGNESIUM 2.1 mg/dL (1.8-2.4); POTASSIUM 3.8 mmol/L (3.5-5.1)
--- NOTE | 2021-03-29 05:49 | NUR ---
PATIENT DISPLAYED ASSYMPTOMATIC HYPOTENSION AT 0400. PROVIDER CONTACTED WITH NO ORDERS RECEIVED OTHER THAN TO CONTINUE TO ASSESS AND GIVE FULL REPORT TO ONCOMING NURSE.
[2021-03-29 08:15] VITALS: BP 94/52
--- NOTE | 2021-03-29 10:14 | NUR ---
S.C. CONSULT [id number] WAS COMPLETED BY THIS EXTENSION SERVICE SPECIALIST. HE DID NOT DESIRE AN OUTSIDE MUSEUM ATTENDANT TO BE CONTACTED. HE SAID HE CAN WAIT UNTIL THURSDAY WHEN [facility] IS HERE.
--- NOTE | 2021-03-29 10:41 | NUR ---
ORDERS FOR EVAL AND TREAT. ATTEMPTED TO SEE Pt HOWEVER Pt ADAMENTLY REFUSING P.T. STATES HE KNOWS HOW TO WALK AND DOESN'T NEED P.T. TO PROVE THAT HE CAN WALK. OBSERVED Pt STAND FROM CHAIR WITHOUT DIFFICULTY. Pt DECLINING FORMAL P.T. EVAL BUT APPEARS LIKE HE WOULD BE ABLE TO GO HOME WHEN MEDICALLY CLEAR.
--- NOTE | 2021-03-29 11:30 | NUR ---
ADV. DIR. CONSULT COMPLETED TODAYBY THIS TEXTILE TECHNOLOGIST. HIS WAS ON THE TELEPHONE ASSISTING WITH INFORMATION. DOCUMENT PLACED IN CHART.
[2021-03-29 11:46] VITALS: BP 99/37
[2021-03-29 13:53] VITALS: BP 96/48
--- NOTE | 2021-03-29 13:55 | NUR ---
INITIAL ASSESSMENT: Received consult.DEEPA reviewed chart and spoke with nursing and attending physician. Pt was admitted from home due to CHF/COPD exacerbation. Pt is on IV abx and IV lasix. Pt is on 6L of O2, which is his baseline. Pt with hx COVID in August 2020. SW met with pt at bedside. Introduced role of SW. Pt known to SW from previous hospitalizations. Pt is alert/orientated x 4. Pt and his live at home. There are 3 steps to enter the home and no steps inside. Prior to admission, pt was independent with ADLs. No use of DME for ambulation/mobility. Pt is on 6L continuous O2 through [employer]. No hx of HH services. Pt's PCP is Dr. Yara Don. Plan is for pt to discharge home when medically stable. Discharge home is anticipated for over the weekend. DEEPA offered to arrange HH services for pt. Pt declined and states that he has everything that he needs at home. Pt's family will be able to provide transportation home when discharged. DEEPA is following to assist as needed with discharge planning.
--- NOTE | 2021-03-29 14:00 | NUR ---
Nutrition: Pt admit with CHF exacerbation. On Heart healthy/2 gm Na diet but has hx DM. BG 210-272. Will add carb controlled. Eats well and reports no diet education needs. Stable weights. Consider low nutrition risk.
[2021-03-29 16:42] VITALS: BP 92/49
[2021-03-30 03:08] VITALS: BP 93/49
[2021-03-30 08:30] VITALS: BP 113/57
[2021-03-30 09:35] LABS: CALCIUM 9.2 mg/dL (8.5-10.1); CREATININE 2.7 mg/dL (0.7-1.3); POTASSIUM 4.4 mmol/L (3.5-5.1)
[2021-03-30 12:00] VITALS: BP 109/66
[2021-03-30 20:00] VITALS: BP 96/53
[2021-03-31 04:56] VITALS: BP 89/56
[2021-03-31 05:32] LABS: CALCIUM 9.2 mg/dL (8.5-10.1); CREATININE 2.4 mg/dL (0.7-1.3); POTASSIUM 5.2 mmol/L (3.5-5.1)
--- NOTE | 2021-03-31 06:45 | NUR ---
ASSUMED CARE AT 1900. PT EASILY WINDED AND TACHY HR UP TO 130-140 WHEN STANDING UP TO URINATE. EDUCATED PT TO ELEVATE HIS LEGS WHILE SITTING IN CHAIR, BUT HE DID NOT PUT THEM UP OVERNIGHT. LEGS AND FEET HAD 3+ EDEMA WITH MULTIPLE WEEPING SPOTS. NO OTHER CONCERNS, WILL CONTINUE TO MONITOR.
[2021-03-31 10:54] LABS: ABSOLUTE NEUTROPHILS 10.6 thou/uL (1.4-8.2); BASOPHILS 1.2 % (0.0-2.0); EOSINOPHILS 1.5 % (0.0-3.0); HEMATOCRIT 23.5 % (42.0-52.0); HEMOGLOBIN 7.7 gm/dL (14.0-18.0); LYMPHOCYTES 8.1 % (24.0-44.0); MCH 30.4 pg (26.0-34.0); MCV 92.1 fL (80.0-100.0); PLATELET COUNT 304 thou/uL (150-400); POLYS 86.2 % (36.0-66.0); RBC 2.55 mil/uL (4.50-6.00); WBC 12.2 thou/uL (4.0-11.0)
[2021-03-31 12:00] VITALS: BP 99/50
[2021-03-31 16:00] VITALS: BP 112/50
--- NOTE | 2021-03-31 16:11 | NUR ---
VAT CONSULTED FOR PICC LINE, CLEARED BY DR RAMOS. PT'S LABS,MEDS,HX,ORDER AND CONSENT VERIFIED. ARLENE MAJUJU WAS WIDELY PATENT WITH USG. 5FR TL POWER PICC TRIMMED TO 46CM INSERTED TO 1CM EXTERNAL. PEAKED P-WAVES ON 3CG CONFIRMED PLACEMENT. PICC RELEASED TO ISADORA ALEX PER PROTOCOL. PT TOLERATED WELL. PT VERBALIZED UNDERSTANDING OF BENEFITS AND RISKS OF PICC.
--- NOTE | 2021-03-31 18:06 | NUR ---
PATIENT HAS HAD NUMEROUS DEMANDS THIS AM. HE WANTED COFFEE AND ALSO ICE WATER. BY 8 AM HE HAS HAD 480MLS OF FLUIDS. NURSE WAS WORRIED THAT HE WILL GO OVER HIS FLUID LIMIT FOR THE DAY BUT TIME HE EATS ALL THREE MEALS. EXPLAINED TO PATIENT TO SPACE DRINKING FOR THE DAY. HE STARTED YELLING AND SCREAMING AT NURSE AND NURSES AID. HE MENTIONED THAT IF HE WANTS WATER OR COFFEE "IT IS NONE OF YOUR [employer] BUSINESS TELLING ME WHAT I CAN OR CANNOT HAVE". NURSE FURTHER CLARIFIED PATIENT THAT HE HAS THE RIGHT TO DRINK HIMSELF HOWEVER HE WANTS, BUT IT WILL BE AGAINST DR ORDERS. HE STATED HE DID NOT CARE. HE HAS DRANK OVER HIS FLUID RESTRICTION BY 360MLS AT THE TIME OF THIS WRITING. RISKS HAVE BEEN EXPLAINED TO HIM. HE CALLED THE AND COMLAINTED ABOUT FLIED RESTRICTION AND WAS HERAD OVER THE PHONE SAYING " WE ARE GOING TO TALK TO PATIENT SATISFACTION COORDINATOR". PICC LINE PLACED IN LIEU OF HIM HAVING NUMEROUS IVS AND HAVING BAD PERIPHERAL ACCESS. HE IS ON LASIX DRIP AT THIS TIME. AMIODARONE WAS DC BY CARDIOLOGY. WILL CONT WITH PLAN OF CARE.
[2021-03-31 20:15] VITALS: BP 127/46
[2021-04-01 00:30] VITALS: BP 109/56
[2021-04-01 04:45] VITALS: BP 111/57
[2021-04-01 05:45] LABS: ALBUMIN 2.6 g/dL (3.4-5.0); CALCIUM 9.4 mg/dL (8.5-10.1); CREATININE 2.5 mg/dL (0.7-1.3); PHOSPHORUS 3.4 mg/dL (2.5-4.9); POTASSIUM 5.3 mmol/L (3.5-5.1)
--- NOTE | 2021-04-01 07:14 | NUR ---
PATIENTS CARES WAS ASSUMED AT SHIFT CHANGE. PATIENT WAS ASSESSED AND MEDS WERE PASSED. PATIENT STATED HE LIKES TO SLEEP IN THE CHAIR DUE TO HE IS ABLE TO BREATH BETTER. PATIENT HAS 2+ EDEMA BILAT ANKLES. 2/ PULSES. AT 0604 PATIENT HEART RATE WENT TO [address] CRESPO CALL. NO RETURN CALL. SECOND CALL OUT, ANOTHER CHANGE AT 0639 HEART RATE RECOVERED TO 117 A FIB. PATIENT DOES HAVE A LASIX GTT GOING AT 10CC/HR. THIS INFORMATION PASSED AT SHIFT CHANGE. IT WOULD HELP THIS PATIENT TO HAVE A NG TO STOP HIS STANDING AND THE HEART RATE JUMPS TO 160. ROUNDING DONE. PATIENT WAS PUT BACK IN THE BED TO REPOSITION AND THAT DID APPER TO BRING DOWN HIS HEART RATE. HE IS NOW 111 AND A-FIB.
[2021-04-01 08:00] VITALS: BP 97/52
[2021-04-01 08:52] LABS: HEMATOCRIT 24.1 % (42.0-52.0); HEMOGLOBIN 7.8 gm/dL (14.0-18.0); MCH 29.8 pg (26.0-34.0); MCHC 32.2 g/dL (28.0-37.0); MCV 92.8 fL (80.0-100.0); RBC 2.6 mil/uL (4.50-6.00); RDW 20.3 % (10.5-14.5); WBC 14.2 thou/uL (4.0-11.0)
[2021-04-01 12:00] VITALS: BP 118/50
[2021-04-01 16:00] VITALS: BP 98/53
--- NOTE | 2021-04-01 19:18 | NUR ---
assessment as charted - meds as per capri patel diet and fluids. pt stating he has little appitite - accuchecks covered per SSI. up in the chair for most of the day. when patient moving about hr would elevate up in the the 60-170's. cardizem given and hr now in the 90 when sleeping and 110's when awake and moving. seen by wound care - dressing to legs applied bilat as ordered. pt voiding 150-200 cc at a time per urinal. refused sheth cath this am. no co's at the present time.
[2021-04-01 20:15] VITALS: BP 102/53
[2021-04-02 04:45] VITALS: BP 90/49
[2021-04-02 05:48] LABS: ALBUMIN 2.4 g/dL (3.4-5.0); CALCIUM 9.2 mg/dL (8.5-10.1); CREATININE 2.7 mg/dL (0.7-1.3); PHOSPHORUS 4.7 mg/dL (2.5-4.9); POTASSIUM 4.6 mmol/L (3.5-5.1)
[2021-04-02 08:00] VITALS: BP 91/46
--- NOTE | 2021-04-02 08:17 | NUR ---
PATIENT WANTS TO SLEEP ON THE RECLINER TONIGHT.OFFERED TEMAZEPAM FOR SLEEP AND PT AGREED BUT CLAIMS IT DID NOT HELP.COMPLAIN OF LEFT ARM PAIN WHERE THE PREVIOUS IV ACCESS WAS;TYLENOL WAS GIVEN AND VERBALIZED IT DID HELP.COMPLAIN OF BILATERAL LEG WRAP TOO TIGHT;LOOSENED AND HE SAID IT FELT BETTER.ON LASIX GTT AND BP IS LOW THIS MORNING.PATIENT FLUID RESTRICTION ENFORCED.MONITOR SHOWS AFIB.POC CONTINUED.
[2021-04-02 11:30] VITALS: BP 110/54
--- NOTE | 2021-04-02 12:28 | NUR ---
OT ENTERED ROOM AT 1141 TO ATTEMPT OT EVAL PER DR. CACERES'S ORDERS. PT. YELLING AT THERAPIST, ALONG THE LINES OF "I DON'T NEED NO F-ING THERAPY. I NEED THE F-ING DCOTOR TO SIGN THE PAPER AND LET ME LEAVE." THERAPIST ATTEMPTED TO EXPLAIN THAT THERAPY EVALS ARE AN IMPORTANT PIECE OF INFORMATION THE DOCTOR'S NEED. PT. STATES "GET THE F- OUT OF HERE". THERAPIST NOTIFED RN AND CASE MANAGEMENT. WILL ATTEMPT TOMORROW
--- NOTE | 2021-04-02 14:52 | NUR ---
ORDERS AGAIN RECEIVED FOR EVAL AND TREAT HOWEVER Pt IS NOT RECEPTIVE TO THERAPY STATING HE CAN WALK FINE AND DOESN'T NEED TO PROVE IT. Pt DECLINING ATTEMPTS TO EVALUATE AND DID NOT WANT THERAPY TO COME AGAIN TOMORROW
[2021-04-02 16:00] VITALS: BP 101/55
--- NOTE | 2021-04-02 16:21 | NUR ---
Spoke with patient and son at bedside. Encoraged hh care. Son in agreement. Patient reports his is like his RN she care for him. Discussed need for clinical RN who can assist with manage medication and vitals. Patient requested son call . She declined need for home health and does not want at discharge.
--- NOTE | 2021-04-02 18:28 | NUR ---
PT ALERT AND ORIENTED TIMES FOUR, WITH A VERY BLUNTED AFFECT. VSS. LASIX GTT INFUSING PER ORDER. PT DENIES PAIN. PT TOLERATES MEDS AND MEALS. PT UP SITTING IN THE CHAIR FOR MOST OF THE DAY. PT REFUSED PT/OT EVALUATIONS TODAY. PT SON AT BEDSIDE THIS EVENING. WILL CONTINUE TO MONITOR.
[2021-04-02 20:26] VITALS: BP 100/42
[2021-04-02 23:50] VITALS: BP 103/45
[2021-04-03 00:50] VITALS: BP 98/48
--- NOTE | 2021-04-03 01:14 | NUR ---
1999 RECIEVED REPORT FROM DAY RN AT 1920 STATING CHAIR ALARM WAS NOT USED DO TO PATIENT REQUEST AND HE STOOD AND VOIDED WITHOUT ASSISTANCE. DURING ASSESMENT RN REQUESTED CHAIR ALARM AND HE STATED HE DIDNT NEED HELP WITH STANDING. PATIENT STAYS IN CHAIR AT ALL TIMES. TO VOID HE COULD DO HIMSELF. EDUCATED ON NEED FOR CHAIR ALARM AND ASSISTANCE WITH VOIDING WHICH PATIENT DENIED. 2335 ROUNDS AND SAW PATIENT SITTING IN CHAIR. 2350 HEARD YELLING FROM ROOM FOR HELP. PATIENT ON FLOOR AT END OF BED. STATES HE HAD FELL ASLEEP WATCHING THE BASEBALL GAME AND AWOKEN AND NEEDED TO PEE FAST. STATES HE STOOD UP AND FELL FOREWARD. WENT DOWN ON RIGHT ARM TO FLOOR. HAS SKIN TEAR TO RIGHT ELBOW AND RIGHT WRIST. DENIES HITTING HEAD OR ANYTHING ELSE. DENIES COMPLAINTS OF PAIN. ASSITED BACK TO CHAIR. WOUNDS CLEANED AND DRESSING APPLIED. VSS. REASSEMENT COMPLETED 0001 PATIENT CALLED TO TELL HER AND NURSE SPOKE WITH AND ANSWERED QUESTIONS. PATIENT TOLD HE GOOFED UP AND WOULD NOT DO THAT AGAIN. INFORMED PATIENT AND THAT CHAIR ALARM AND CALLING FOR ASSISTANCE WHEN UP WAS A MUST. CHAIR ALARM IN PLACE, ASKED DRILL PRESS SET UP OPERATOR RADIAL TO MAKE FREQUENT ROUNDS. 0010 NOTIFIED RESIDENTIAL FIELD MANAGER. 0012 CALL TO DIRECTOR ACUTE 0025 MEENU DIRECTOR ACUTE RETURNED CALL AND NOTIFIED OF FALL AND SKIN TEARS. 0100 MACKENZIE RESIDENTIAL FIELD MANAGER HERE FOR FOLLOW UP AND SPOKE WITH PATIENT. REINFORCED PATIENT MUST CALL FOR ASSISTANCE WHEN UP TO VOID. PATIENT AGREED. CONTINUE TO ASSES CLOSELY.
[2021-04-03 04:30] VITALS: BP 100/45
[2021-04-03 06:17] LABS: ALBUMIN 2.5 g/dL (3.4-5.0); CALCIUM 9.3 mg/dL (8.5-10.1); CREATININE 2.7 mg/dL (0.7-1.3); PHOSPHORUS 4.6 mg/dL (2.5-4.9)
--- NOTE | 2021-04-03 06:30 | NUR ---
0530 WHILE DRAWING BLOOD THIS AM PATIENT STATED THAT IT IS RIDICULOUS THAT HE HAS TO CALL WHEN STANDING UP TO VOID. STATED HE "AINT GOING TO CALL NO MORE BECAUSE HE HAS BEEN PEEING BY HIMSELF FOR YEARS." REINFORCED FALL PRECAUTIONS DUE TO FALL LAST NOC AND NEED TO CALL FOR ASSISTANCE FOR SAFETY. AGAIN STATED HE WILL NOT. CHAIR ALARM IN PLACE. CALL LIGHT WITHIN REACH. 0630 DR. RAMOS HERE AND STATED TO DR THAT HE "AINT CALLIN FOR HELP TO GET UP" SHUT DOOR AND PATIENT WAS YELLING AT HIM. DR REINFORCED NEED FOR CALLING FOR HELP. DOOR OPENED PAST DR RICE.
[2021-04-03 08:22] VITALS: BP 107/53
[2021-04-03 09:22] LABS: ABSOLUTE NEUTROPHILS 10.3 thou/uL (1.4-8.2); BASOPHILS 1.3 % (0.0-2.0); EOSINOPHILS 1.4 % (0.0-3.0); HEMATOCRIT 24.8 % (42.0-52.0); HEMOGLOBIN 7.9 gm/dL (14.0-18.0); MCH 29.4 pg (26.0-34.0); MCHC 31.8 g/dL (28.0-37.0); MCV 92.3 fL (80.0-100.0); MONOCYTES 6.2 % (1.0-8.0); PLATELET COUNT 359 thou/uL (150-400); POLYS 82.1 % (36.0-66.0); RBC 2.69 mil/uL (4.50-6.00); RDW 20.7 % (10.5-14.5); WBC 12.5 thou/uL (4.0-11.0)
--- NOTE | 2021-04-03 10:36 | HC ---
[facility] [place] [address] CONSULTATION Name: EVELYN MEEKS Room #: 219-P [facility] IN M.R.#: [id number] Admission: 03/28/21 Attend Phys: Cristiane Lopez MD Discharge: Date of : 40 Report #: [id number] THIS REPORT FOR: cc: Yara Don MD, Jennifer S. MD Althoff, Jeffrey R. MD ~ DOC #: [id number] Gustavo Landaverde MD DATE OF SERVICE: 04/01/2021 CHIEF COMPLAINT: Lower extremity cellulitis and ulceration. HISTORY OF PRESENT ILLNESS: This is an 80-year-old male patient who I have been asked to see with regard to lower extremity edema and ulcerations to his lower legs. The patient has a history of chronic respiratory failure and a history of COPD, severe aortic stenosis and atrial fibrillation. He is sitting in his chair. He is a bit confused and is concerned with the chair alarm. He has allowed me to look at his legs, but has been somewhat uncooperative. He does not answer any of my questions specifically. PAST MEDICAL HISTORY: Positive for: 1. History of chronic respiratory failure, history of iron deficiency anemia, history of atrial fibrillation status post prior ablation, history of diastolic congestive heart failure. 2. Severe COPD with 6 liters of oxygen requirement. 3. Chronic kidney disease stage III. 4. Type 2 diabetes mellitus. 5. Hypertension. 6. Severe aortic stenosis. 7. Prior smoker with 72-sjwn-axpt smoking history. 8. Cellulitis, bilateral lower extremities. 9. Early mild dementia with sundowning syndrome. SOCIAL HISTORY: 1. Positive for previous alcohol use. 2. Previous smoker with 02-[id number]-[id number] history. No recreational drug use. MEDICATIONS: Include nitrofurantoin, Lumify, Advair, levalbuterol, allopurinol, vitamin B12, iron, prednisone, CoQ12, Protonix, NovoLog and Spiriva. ALLERGIES: No known drug allergies. FAMILY HISTORY: Unknown. REVIEW OF SYSTEMS: Not obtainable due to the patient's uncooperativeness. [facility] [address] [place] [address] CONSULTATION Name: CONSTANTINOEVELYN Room #: 219-P [facility] IN ..#: [id number] Admission: 03/28/21 Attend Phys: Cristiane Lopez MD Discharge: Date of : 40 Report #: [id number] PHYSICAL EXAMINATION: VITAL SIGNS: At this time include temperature 36.7, pulse 50, respiratory rate 22, blood pressure of 98/53. GENERAL: This is a chronically ill-appearing male patient who appears to be a bit agitated. HEENT: Head normocephalic. Nose and throat are clear. NECK: Supple. LUNGS: Diminished. HEART: Irregular with systolic murmur. ABDOMEN: Soft, nontender. EXTREMITIES: Lower extremities demonstrate moderate venous stasis dermatitis bilaterally, 2+ edema bilaterally. Scattered superficial ulcerations, mild erythema. NEUROLOGIC: The patient is awake and moving symmetrically. He is confused. LABORATORY DATA: White blood cell count 14.2, hemoglobin 7.8. Sodium 139, potassium 5.3, chloride 100, CO2 of 30, BUN 43, creatinine 2.5, glucose 176, albumin is 2.6. CLINICAL IMPRESSION: 1. Bilateral lower extremity edema with venous stasis dermatitis and scattered small ulcerations. 2. Mild bilateral lower extremity cellulitis. 3. Diabetes type 2. 4. Hypertension. 5. Chronic kidney disease. 6. Severe pulmonary hypertension. 7. Chronic obstructive pulmonary disease with chronic home oxygen use. 8. Severe aortic stenosis. 9. Moderate protein-calorie malnutrition. RECOMMENDATIONS: At this point in time, recommend AmLactin lotion to both legs to be applied daily. We will recommend Tubigrip stockings for compression. I am worried about more aggressive compression both due to concerns of volume overload as well as due to concerns of the patient compliance and uncooperativeness with his legs being wrapped. Would recommend that they be elevated. He is refusing to do so at the time of my evaluation today. I appreciate being asked to see the patient in consultation. MD NEEL Gray/JAMEE/[place] [address] CONSULTATION Name: EVELYN MEEKS ODELL Room #: 219-P ADM IN M.R.#: [id number] Admission: 03/28/21 Attend Phys: Cristiane Lopez MD Discharge: Date of : 40 Report #: [id number] <ELECTRONICALLY SIGNED> By: Gustavo Landaverde MD 04/03/21 1036 1622 0222 Gustavo Landaverde MD /nt
[2021-04-03 11:22] LABS: ANISOCYTOSIS 1+; POIKILOCYTOSIS SLIGHT
[2021-04-03 11:23] LABS: OVALOCYTES FEW; POLYCHROMASIA SLIGHT; TEARDROPS OCCASIONAL
[2021-04-03 11:30] VITALS: BP 94/51
--- NOTE | 2021-04-03 13:55 | NUR ---
WOUND CARE F/U; THE BILATERAL LE ARE WRAPPED. SMALL AREAS ARE DRAINING SEROSANGINOUS DRAINAGE. NO S/S OF INFECTION. NO ODOR. DRESSINGS ARE INTACT. THE DRESSINGS ARE NOT DUE TO BE CHANGED UNTIL TOMMORROW. CONTINUE CURRENT TREATMENT.
[2021-04-03 17:55] VITALS: BP 105/88
--- NOTE | 2021-04-03 17:57 | NUR ---
PT RESTING IN CHAIR AT THIS TIME EATING DINNER, DENIES PAIN OR DISCOMFORT. CONT ON LASIX GTT AND 6L NC. RESPIRATIONS EVEN AND UNLABORED AT THIS TIME, VS WNL. PT STATES HE WOULD LIKE TO GET U P AND WALK AFTER THE BALL GAME THIS EVENING. NO QUESTIONS OR CONCERNS.
[2021-04-03 20:29] VITALS: BP 103/46
[2021-04-04 04:32] VITALS: BP 94/45
[2021-04-04 06:18] LABS: ALBUMIN 2.5 g/dL (3.4-5.0); CALCIUM 9.3 mg/dL (8.5-10.1); CREATININE 2.6 mg/dL (0.7-1.3); PHOSPHORUS 4.1 mg/dL (2.6-4.7); POTASSIUM 3.4 mmol/L (3.5-5.1)
[2021-04-04 08:00] VITALS: BP 108/44
--- NOTE | 2021-04-04 11:15 | NUR ---
Pt now open to hh f/u at dc and denies agency preference. Referral called to [facility] who will visit with pt and confirm they are in network with pt's ins plan. Dc 1-2 days as pt is still on a lasix gtt. Pt on his normally 6liters of o2 which is his baseline; home o2 provider is Chris.
--- NOTE | 2021-04-04 11:21 | NUR ---
Nutrition followup: Pt continues on CCU with CHF exacerbation, venous stasis dermatitis lower legs/edema present. Eating 50-100% of meals on Heart healthy, carb controlled diet. BM 04/02. BG 141-269. Pt with some confusion/cussing during visit. Trial ensure max for additional protein and suboptimal intake at times. Physician has documented moderate malnutrition-will defer. Expected to D/C soon. Low nutrition risk.
[2021-04-04 12:10] VITALS: BP 96/50
[2021-04-04 16:30] VITALS: BP 100/52
[2021-04-04 20:03] VITALS: BP 106/58
[2021-04-05] VITALS (9 sets, daily range): BP systolic 94–109; BP diastolic 45–62
--- NOTE | 2021-04-05 04:53 | NUR ---
PT RESTING IN NO ACUTE DISTRESS.A/OX4.VSS.REMAINS ON LASIX DRIP,URINATING MUTIPLE TIMES VIA URINAL.ON O2 AT 6LITERS PNC,SATS ADEQUATE.HAD BM THIS SHIFT AFTER GIVING HIM A SUPPOSITORY.DENIES PAIN OR ANY DISTRESS.POC IS TO CONTINUE WITH LASIX DRIP W/ANTICIPATED DISCHARGE FOR THURSDAY.
[2021-04-05 05:36] LABS: ALBUMIN 2.6 g/dL (3.4-5.0); CALCIUM 9.4 mg/dL (8.5-10.1); CREATININE 2.9 mg/dL (0.7-1.3); PHOSPHORUS 4.2 mg/dL (2.5-4.9)
--- NOTE | 2021-04-05 12:13 | NUR ---
The [facility] liason was here and visited with the pt at bedside and his via phone. They can accept for hh services. The care team is anticipating dc over the weekend. Unit Rn to fax dc orders to [phone] and call their consumer affairs manager RN to confirm dc [phone]. The pt and his are indicisive about accepting services as they continue to agree with talking with the physicians but waiver when talking to cm. Edith will make attempt to f/u at dc.
--- NOTE | 2021-04-05 14:38 | NUR ---
NURSE TRANSACTION MANAGER AND I SPOKE WITH PATIENT'S ABOUT PATIENT'S CONCERNS; E.G. FOOD CHOICES, CALLING FOR BLADDER EMPTYING NEEDS, AND ASSISTANCE IN GENERAL.
[2021-04-06 04:45] VITALS: BP 110/50
[2021-04-06 05:02] LABS: ALBUMIN 2.4 g/dL (3.4-5.0); CREATININE 2.5 mg/dL (0.7-1.3); PHOSPHORUS 3.8 mg/dL (2.5-4.9); POTASSIUM 3.5 mmol/L (3.5-5.1)
--- NOTE | 2021-04-06 05:40 | NUR ---
ASSESSMENTS CHARTED, MEDS CHARTED GIVEN. PATIENT RESTING IN RECLINER DURING SHIFT. ALLOWING FEET TO BE RAISED. CONTINUE TO BE IN AFLUTTER/AFIB, ON 6 LITERS OXYGEN. PATIENT NOT RECEPTIVE TO LEARNING INFORMATION OR FOLLOWING GUIDANCE. PATIENT SLEPT MOST OF SHIFT, STATES THATS THE BEST SLEEP HE'S GOTTEN SINCE HE'S BEEN HERE. THE SLEEPING PILLS REALLY WORKED. PATIENTS WOUNDS REMAIN DRESSED. FALL PRECAUTIONS IN PLACE DURING SHIFT.PATIENT MAY GO HOME TODAY WITH HOME HEALTH SERVICES.
[2021-04-06 07:47] VITALS: BP 95/46
[2021-04-06 11:26] VITALS: BP 95/50
[2021-04-06 15:34] VITALS: BP 95/72
[2021-04-06 20:39] VITALS: BP 108/40
--- NOTE | 2021-04-07 03:03 | NUR ---
ASSUMED PT CARE AT 1900.PT OBSERVED SITTING UP IN THE RECLINER IN HIS ROOM AT SHIFT CHANGE.PT EDUCATED ON FALL PRECAUTION,PT NOT COMPLIANT WITH FALL PRECAUTIONS.PT HETS UP WITHOUT ASSISTANCE. EDEMA TO BLE.PT REF TO ELEVATE LEGS.BRIAN LEG WRAPS INTACT.PT CONT ON 6L/NC FE WELL.TEMAZEPAM ADMINISTERED AT HS PER PT'S REQUEST.PT SLEEPING IN HIS RECLINER AT THIS TIME.CALL LIGHT WITHIN REACH.
[2021-04-07 04:38] VITALS: BP 106/52
[2021-04-07 06:50] LABS: ABSOLUTE NEUTROPHILS 8.7 thou/uL (1.4-8.2); EOSINOPHILS 1.4 % (0.0-3.0); HEMATOCRIT 24.3 % (42.0-52.0); LYMPHOCYTES 10.9 % (24.0-44.0); MCHC 32.7 g/dL (28.0-37.0); MCV 91.6 fL (80.0-100.0); MONOCYTES 4.5 % (1.0-8.0); PLATELET COUNT 317 thou/uL (150-400); POLYS 82.2 % (36.0-66.0); RBC 2.65 mil/uL (4.50-6.00); WBC 10.5 thou/uL (4.0-11.0)
[2021-04-07 07:00] LABS: ALBUMIN 2.5 g/dL (3.4-5.0); CALCIUM 9.1 mg/dL (8.5-10.1); CREATININE 2.4 mg/dL (0.7-1.3); PHOSPHORUS 3.6 mg/dL (2.5-4.9); POTASSIUM 3.6 mmol/L (3.5-5.1)
[2021-04-07 08:20] VITALS: BP 97/42
[2021-04-07 09:05] LABS: ANISOCYTOSIS 2+
[2021-04-07 09:06] LABS: OVALOCYTES 1+
[2021-04-07 11:55] VITALS: BP 105/44
[2021-04-07 11:56] VITALS: BP 96/45; BP 97/42
--- NOTE | 2021-04-07 13:29 | NUR ---
PT DISCHARGING HOME WITH HOME HEALTH, REMAINS ON 6L NC BASELINE, A&OX4 NO SIGNS OF DISTRESS NOTED AT THIS TIME. PAPER WORK READ TO PT AND HIS NO QUESTIONS AT THIS TIME. OUT OF FACILITY VIA W.C WITH ALL BELONGINGS.
== END 2021-04-07 15:00 | disposition home health service (06) | DRG 291 ==
LOC: ER 14:57 → 2N 17:15 → EROBS 17:15 → 2N 19:34
PROVIDERS: Emergency Medicine; Hospitalist; Internal Medicine; Nurse Practitioner; ADMIT Hospitalist; ATTEND Hospitalist
DX: I13.0 Hypertensive heart and chronic kidney disease with heart failure and stage 1 through stage 4 chronic kidney disease, or unspecified chronic kidney disease (principal); I50.33 Acute on chronic diastolic (congestive) heart failure; J96.12 Chronic respiratory failure with hypercapnia; J96.11 Chronic respiratory failure with hypoxia; N30.01 Acute cystitis with hematuria; L97.929 Non-pressure chronic ulcer of unspecified part of left lower leg with unspecified severity; L97.919 Non-pressure chronic ulcer of unspecified part of right lower leg with unspecified severity; I48.21 Permanent atrial fibrillation; N18.4 Chronic kidney disease, stage 4 (severe); E44.1 Mild protein-calorie malnutrition; J44.9 Chronic obstructive pulmonary disease, unspecified; I27.20 Pulmonary hypertension, unspecified; D63.8 Anemia in other chronic diseases classified elsewhere; N40.0 Benign prostatic hyperplasia without lower urinary tract symptoms; I87.8 Other specified disorders of veins; L30.9 Dermatitis, unspecified; I35.0 Nonrheumatic aortic (valve) stenosis; D50.9 Iron deficiency anemia, unspecified; I27.81 Cor pulmonale (chronic); R53.81 Other malaise; E87.5 Hyperkalemia; I42.9 Cardiomyopathy, unspecified; E78.5 Hyperlipidemia, unspecified; E11.22 Type 2 diabetes mellitus with diabetic chronic kidney disease; Z20.822 Contact with and (suspected) exposure to COVID-19; Z90.49 Acquired absence of other specified parts of digestive tract; Z99.81 Dependence on supplemental oxygen; Z87.891 Personal history of nicotine dependence; Z86.16 Personal history of COVID-19; Z79.4 Long term (current) use of insulin; Z79.899 Other long term (current) drug therapy; Z68.27 Body mass index [BMI] 27.0-27.9, adult
CPT/HCPCS: 10081; 27000

== ENCOUNTER 2021-04-24 13:02 | Emergency (ER) | payer OTHER ==
[~2021-04-24] VITALS: Ht 182.9 cm; Wt 90.7 kg
[~2021-04-24 13:02] MED LIST changes: +MACROBID 100 M100 MG PO
[2021-04-24 14:35] LABS: ABSOLUTE NEUTROPHILS 6.9 thou/uL (1.4-8.2); BASOPHILS 0.9 % (0.0-2.0); EOSINOPHILS 1.1 % (0.0-3.0); HEMATOCRIT 27.1 % (42.0-52.0); HEMOGLOBIN 8.6 gm/dL (14.0-18.0); LYMPHOCYTES 11.3 % (24.0-44.0); MCH 29.1 pg (26.0-34.0); MCHC 31.7 g/dL (28.0-37.0); MCV 91.9 fL (80.0-100.0); MONOCYTES 6.6 % (1.0-8.0); PLATELET COUNT 205 thou/uL (150-400); POLYS 80.1 % (36.0-66.0); RBC 2.95 mil/uL (4.50-6.00); RDW 18.8 % (10.5-14.5); WBC 8.6 thou/uL (4.0-11.0)
[2021-04-24 14:40] LABS: CALCIUM 9.5 mg/dL (8.5-10.1); CREATININE 1.6 mg/dL (0.7-1.3); POTASSIUM 3.3 mmol/L (3.5-5.1)
[2021-04-24 14:48] LABS: TROPONIN-I 0.08 ng/mL (<0.06)
[2021-04-24] MEDS ORDERED: PREDNISONE 20 M20 MG PO (15:15)
[2021-04-24 15:17] VITALS: BP 120/61
--- NOTE | 2021-04-24 17:23 | EKG ---
[place] [address] 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
== END 2021-04-24 15:17 | disposition home or self-care (01) ==
LOC: ER 13:02
PROVIDERS: Nurse Practitioner
DX: J44.1 Chronic obstructive pulmonary disease with (acute) exacerbation (principal); I48.91 Unspecified atrial fibrillation; E11.22 Type 2 diabetes mellitus with diabetic chronic kidney disease; I13.0 Hypertensive heart and chronic kidney disease with heart failure and stage 1 through stage 4 chronic kidney disease, or unspecified chronic kidney disease; N18.30 Chronic kidney disease, stage 3 unspecified; I50.30 Unspecified diastolic (congestive) heart failure; F03.90 Unspecified dementia, unspecified severity, without behavioral disturbance, psychotic disturbance, mood disturbance, and anxiety; E66.9 Obesity, unspecified; Z90.49 Acquired absence of other specified parts of digestive tract; Z79.899 Other long term (current) drug therapy; Z79.4 Long term (current) use of insulin; Z79.82 Long term (current) use of aspirin; Z87.891 Personal history of nicotine dependence; Z68.27 Body mass index [BMI] 27.0-27.9, adult

== ENCOUNTER 2021-05-06 13:40 | Inpatient (IN) | payer OTHER ==
[~2021-05-06] VITALS: Ht 182.9 cm; Wt 89.3 kg
[2021-05-06 13:40] VITALS: BP 114/60
[2021-05-06 14:35] LABS: URINE BILIRUBIN NEGATIVE (Negative); URINE BLOOD TRACE (Negative); URINE COLOR YELLOW; URINE GLUCOSE-RANDOM* NEGATIVE (Negative); URINE KETONES NEGATIVE (Negative); URINE NITRITE-REFLEX NEGATIVE (Negative); URINE PROTEIN (DIPSTICK) 1+ (Negative); URINE UROBILINOGEN 0.2 E.U./dl (0.2-1.0)
[2021-05-06 14:36] LABS: URINE CLARITY CLOUDY; URINE LEUKOCYTES-REFLEX 3+ (Negative)
[2021-05-06 14:39] LABS: SQUAMOUS None Seen /LPF (0-3); URINE WBC-REFLEX >25 Many /HPF (0-5)
[2021-05-06 14:40] LABS: BACTERIA-REFLEX 1-9 Few /HPF (None Seen); CRYSTALS None Seen /LPF (None Seen); URINE RBC None Seen /HPF (NONE SEEN)
[2021-05-06 14:40] LABS: ABSOLUTE NEUTROPHILS 8.8 thou/uL (1.4-8.2); BASOPHILS 0.4 % (0.0-2.0); EOSINOPHILS 0.2 % (0.0-3.0); HEMATOCRIT 30.7 % (42.0-52.0); LYMPHOCYTES 4.6 % (24.0-44.0); MCH 29.2 pg (26.0-34.0); MCHC 32.7 g/dL (28.0-37.0); MCV 89.2 fL (80.0-100.0); MONOCYTES 9.2 % (1.0-8.0); PLATELET COUNT 226 thou/uL (150-400); POLYS 85.6 % (36.0-66.0); RBC 3.44 mil/uL (4.50-6.00); RDW 18.5 % (10.5-14.5); WBC 10.3 thou/uL (4.0-11.0)
[2021-05-06 14:43] LABS: BE(vivo) 5.6 mmol/L (-2 to +3); HCO3 30.7 mmol/L (22.0-26.0); PCO2 47.9 mmHg (35.0-45.0); PO2 93.8 mmHg (80.0-100.0); pH 7.425 (7.360-7.450); sO2 97.2 % (92.0-98.0)
[2021-05-06 14:46] LABS: CALCIUM 9.5 mg/dL (8.5-10.1); CREATININE 2.2 mg/dL (0.7-1.3); POTASSIUM 3.7 mmol/L (3.5-5.1)
[2021-05-06 14:51] LABS: ALBUMIN 3.1 g/dL (3.4-5.0); TOTAL BILIRUBIN 0.4 mg/dL (0.2-1.0); TOTAL PROTEIN 7.4 g/dL (6.4-8.2)
--- NOTE | 2021-05-06 15:53 | EKG ---
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 : 1940 Requested By: Augustina Christian Order Number: [id number] MD: Dhaval Chadwick Measurements Intervals [place] Rate: 123 P: PA: QRS: 81 QRSD: 84 T: 15 QT: 318 QTc: 455 Interpretive Statements Atrial fibrillation Borderline right axis deviation Borderline repol abnormality, diffuse leads Compared to ECG 04/24/2021 13:49:16 Poor R-wave progression no longer present Electronically Signed On 05-06-2021 15:53:10 CDT by Dhaval Chadwick [email or web address] <ELECTRONICALLY SIGNED> By: Dhaval Chadwick MD, [facility] 05/06/21 1553 1441 1441 Dhaval Chadwick MD, FACC /EPI
[2021-05-06 16:56] VITALS: BP 117/58
[2021-05-06 17:11] VITALS: BP 121/63
[2021-05-06 18:10] LABS: HCO3 31.9 mmol/L (22.0-26.0); PCO2 46.8 mmHg (35.0-45.0); pH 7.451 (7.360-7.450); sO2 67.4 % (92.0-98.0)
[2021-05-06 18:11] LABS: PO2 33.9 mmHg (80.0-100.0)
--- NOTE | 2021-05-06 19:03 | NUR ---
assumed care of pt on arrival to unit. pt confused. somewhat plesaant, but using curse words. pulm and ID consulted. placed on bipap.
[2021-05-06 19:39] VITALS: BP 108/68
[2021-05-06 20:10] LABS: BE(vivo) 8.6 mmol/L (-2 to +3); HCO3 33.8 mmol/L (22.0-26.0); PCO2 53.4 mmHg (35.0-45.0); PO2 382.5 mmHg (80.0-100.0); pH 7.419 (7.360-7.450); sO2 99.8 % (92.0-98.0)
--- NOTE | 2021-05-06 22:58 | NUR ---
PT RESTING ON BIPAP. TOLERATING WELL. REPEAT ABG OBTAINED BY RT. AFIB ON TELE. VSS. REPORT GIVEN TO ONCOMING NURSE AROUND 2229.
[2021-05-07 03:34] VITALS: BP 136/77
[2021-05-07 06:32] LABS: HEMATOCRIT 26.8 % (42.0-52.0); HEMOGLOBIN 8.9 gm/dL (14.0-18.0); MCH 29.7 pg (26.0-34.0); MCHC 33.2 g/dL (28.0-37.0); MCV 89.6 fL (80.0-100.0); RBC 2.99 mil/uL (4.50-6.00); RDW 18.3 % (10.5-14.5); WBC 5.4 thou/uL (4.0-11.0)
[2021-05-07 06:50] LABS: CREATININE 1.8 mg/dL (0.7-1.3); POTASSIUM 3.7 mmol/L (3.5-5.1)
[2021-05-07 06:59] VITALS: BP 101/53
--- NOTE | 2021-05-07 07:21 | EKG ---
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 : 1940 Requested By: Kwabena Peoples Order Number: [id number] MD: Dhaval Chadwick Measurements Intervals [place] Rate: 126 P: MT: QRS: 81 QRSD: 90 T: 2 QT: 323 QTc: 468 Interpretive Statements Atrial fibrillation Borderline right axis deviation Borderline low voltage, extremity leads ST depr, consider ischemia, anterolateral lds Compared to ECG 05/06/2021 14:41:57 Possible ischemia now present Electronically Signed On 05-07-2021 7:21:34 CDT by Dhaval Chadwick [email or web address] <ELECTRONICALLY SIGNED> By: Dhaval Chadwick MD, [facility] 05/07/21720 21 21 Dhaval Chadwick MD, [facility] /EPI
--- NOTE | 2021-05-07 08:48 | NUR ---
VARIANCE NOTE: Pt. KNOWN TO O.T. FROM PRIOR ADMISSIONS, WITH SUBSEQUENT REFUSALS TO PARTICIPATE IN THERAPY EACH ADMISSION. MET WITH Pt. THIS DATE, WHO DENIES INPATIENT O.T. SERVICES DURING ACUTE STAY, STATING "I COULD WALK OUT OF THIS [facility] RIGHT NOW IF I WANTED TO, I DON'T NEED THE THERAPY" WHILE ALSO SAYING "I COULDN'T GET MYSELF DRESSED TODAY". PT REFUSING O.T. EVAL, BUT REQUESTING TO SEE OUTPATIENT O.T. FOR LYMPHEDEMA WRAPPING WHILE IN ACUTE SIDE. ADVISED PT TO DISCUSS WITH DR. SWIFT AND DISCUSSED WITH PT'S R.N. WILL PLAN TO D/C O.T. AT THIS TIME DUE TO PT'S INAPPROPRIATENESS/VERBAL BEHAVIORS WITH THERAPY. THANK YOU.
[2021-05-07 11:29] VITALS: BP 99/52
[2021-05-07 15:09] VITALS: BP 104/50
--- NOTE | 2021-05-07 15:33 | NUR ---
INITIAL ASSESSMENT: SW reviewed chart and spoke with nursing and attending physician. Pt was admitted from home due to COPD exacerbation. Pt placed in Enhanced Isolation due to positive COVID test. Pt is on IV abx. Pt is on 6L of O2, which is his baseline. Pt with hx COVID in August 2020. SW placed call to pt's room No answer. Pt known to SW from previous hospitalizations. Pt is alert/orientated x 4. Pt and his live at home. There are 3 steps to enter the home and no steps inside. Prior to admission, pt was independent with ADLs. No use of DME for ambulation/mobility. Pt is on 6L continuous O2 through [employer]. Pt was recently discharged home from [facility] on 04/07/2021 with Kyle DO. Pt's PCP is Dr. Yara Don. Plan is for pt to discharge home when medically stable. SW is following to assist as needed with discharge planning.
--- NOTE | 2021-05-07 15:33 | NUR ---
CARE ASSUMMED AT O700, PT ALERT AND ORIENTE X4, FORGETFUL AND CONFUSED AT TIMES. PT DENIES PAIN, NAUJSEA AND VOMITTING. ON 6L OF O2, BASELINE FROM HOME, SOB WITH EXERTION. DR. JAMISON MCKEON WITH PT NOT HAVING CONTINOUS PULSE OX. UP IN THE CHAIR, USES THE URINAL. [facility] WILL CONTINUE TO MONITOR
[2021-05-07 21:06] VITALS: BP 110/54
[2021-05-08 04:40] VITALS: BP 108/67
[2021-05-08 07:29] VITALS: BP 150/60
--- NOTE | 2021-05-08 07:49 | NUR ---
PT IS A/0X4 AND COVID+. PT WILL NOT LET HIS REST WHO IS IN 355, CALLS HER FREQUENTLY. PT ON 6L VIA NC. PT REST IN THE CHAIR OVERNIGHT. CANE IS USED TO AMBULATE AT THE HOME. RECENT FALL IN FEBRUARY ON 2N, FALL PRECAUTIONS IN PLACE. BREATHING TX AND KEEPING 02 SATURATIONS UP WAS THE POC. PT DOES NOT WANT HIS IV ACCESS TO BE FLUSHED WITH SALINE FLUSH. HOURLY ROUNDING.
[2021-05-08 08:04] LABS: HEMATOCRIT 27.9 % (42.0-52.0); HEMOGLOBIN 8.9 gm/dL (14.0-18.0); MCH 28.7 pg (26.0-34.0); MCV 89.8 fL (80.0-100.0); RBC 3.11 mil/uL (4.50-6.00); RDW 17.9 % (10.5-14.5); WBC 9.1 thou/uL (4.0-11.0)
[2021-05-08 08:19] LABS: CALCIUM 9.1 mg/dL (8.5-10.1); CREATININE 1.6 mg/dL (0.7-1.3)
[2021-05-08 11:19] VITALS: BP 125/70
--- NOTE | 2021-05-08 11:49 | HC ---
[facility] [address] CONSULTATION Name: EVELYN MEEKS Room #: 352- ADM IN M.R.#: [id number] Admission: 05/06/21 Attend Phys: Kwabena Peoples MD Discharge: Date of : 40 Report #: [id number] THIS REPORT FOR: cc: Yara Don MD, Jennifer S. MD Barry, Joseph W. MD ~ DOC #: [id number] Toño Yap MD DATE OF SERVICE: 05/07/2021 INFECTIOUS DISEASE CONSULTATION ATTENDING PHYSICIAN: Dr. Peoples. REASON FOR CONSULTATION: Encephalopathy with hypoxemia. HISTORY OF PRESENT ILLNESS: The patient has extensive underlying medical history including severe COPD, O2 requiring 6 liters on a continuous basis. Apparently, he presented to the Emergency Room, was found to have saturations in the 70s on room air; however, improved to 100% on a nonrebreather. He notes he has very little recollection of the events. At this point, he states he feels generally fairly well. The ER evaluation noted urinalysis with marked pyuria, although plus bacteriuria. ABGs satisfactory on 5 liters. He was found to have elevated creatinine 2.2. ProBNP of 2032. Chest x-ray comparison study showed mild bibasilar atelectasis. Coronavirus testing was positive. It is interesting to note that actually his illness last fall requiring hospitalization. He really cannot give any additional details. It is not clear if he had fevers, chills or significant anorexia, at least moderately encephalopathic. ALLERGIES: None known. MEDICATIONS: Currently include ceftriaxone, allopurinol, insulin glargine, prednisone 5 daily, aspirin, diltiazem CD, ferrous sulfate, guaifenesin, tamsulosin, sliding scale insulin, p.r.n. analgesics and antiemetics. PAST MEDICAL HISTORY: As described above, chronic respiratory failure; underlying chronic obstructive pulmonary disease, O2 requiring 6 liters at baseline on a continuous basis; cardiomyopathy with history of congestive heart failure; chronic renal insufficiency; diabetes mellitus, insulin requiring; hypertension; severe aortic stenosis; chronic anemia; lower extremity venous stasis insufficiency with dermatitis, some dementia as manifested by sundowners. SOCIAL HISTORY: Former smoker. No illicit drug use. No current ethanol. FAMILY HISTORY: Noncontributory. [address] [address] CONSULTATION Name: EVELYN MEEKS Room #: 352-P [facility] IN M.R.#: [id number] Admission: 05/06/21 Attend Phys: Kwabena Peoples MD Discharge: Date of : 40 Report #: [id number] REVIEW OF SYSTEMS: Somewhat unreliable. PHYSICAL EXAMINATION: GENERAL: Appears chronically ill and undernourished. He is restless, somewhat irritable. VITAL SIGNS: Temperature 98.1, pulse 85, respirations 16, blood pressure 101/53. SKIN: Warm, dry. HEENT: Normocephalic. Extraocular muscles intact. Nasal cannula in place. NECK: Supple. LUNGS: Diminished breath sounds, has bilateral coarse crackles. HEART: Irregular, do not appreciate any murmur. ABDOMEN: Soft, it is distended, nontender. LABORATORY DATA: Blood cultures sterile thus far. Electrolytes: Sodium 140, potassium 3.7, chloride 100, bicarbonate is 31, anion gap of 9, BUN and creatinine 62 and 1.8, glucose of 289. CBC: White count 5.4, H and H 8.9 and 26.8, platelets of 200. ABGs from last evening and on BiPAP; pH 7.419, pCO2 of 53.4, pO2 of 382.5. Coronavirus-19 testing was positive. Chest x-ray showed mild bibasilar atelectasis. IMPRESSION: 1. Encephalopathy, perhaps as a complication of hypoxemia noted incident where he had received ____ supplemental oxygen presuming that contributed to hypoxia, also appears to have a complicated urinary tract infection, review of previous urines as recently as January did have Enterococcus faecalis. 2. Severe chronic obstructive pulmonary disease, O2 requiring. 3. Cardiomyopathy with congestive heart failure. 4. Diabetes mellitus. 5. Chronic venous stasis insufficiency. 6. Anemia. PLAN: We will continue current therapy with ceftriaxone dose with vancomycin. Await urine culture results. He remains quite tenuous at this point, somewhat difficult to assess his baseline. Similarly, he could not live independently at this point. Of note, his is in the hospital as well. We will do additional studies, doubt COVID-19 represents situation of a recurrent infection. Overall his prognosis appears guarded. Toño Yap MD JWB/ALL/NIS [address] [address] CONSULTATION Name: EVELYN MEEKS Room #: 352-P ADM IN M.R.#: [id number] Admission: 05/06/21 Attend Phys: Kwabena Peoples MD Discharge: Date of : 40 Report #: [id number] <ELECTRONICALLY SIGNED> By: Toño Yap MD 05/08/21 1149 0952 16 Toño Yap MD /nt
--- NOTE | 2021-05-08 13:59 | NUR ---
DEEPA reviewed chart and spoke with nursing and attending physician. Pt remains in Enhanced Isolation due to COVID. Pt is afebrile and on 6L of O2. Pt is on IV abx. Pt with elevated HR. Started on cardizem this morning. Pt did participate with physical therapy today. DEEPA placed call to pt's room. No answer. Pt was set up to have [facility] upon most recent discharge from [facility]. Pt declined HH and was not admitted on service. DEEPA spoke with pt's via phone, who states she will consider HH for both herself and pt. DEEPA is following to assist as needed with discharge planning.
[2021-05-08 15:09] VITALS: BP 106/55
--- NOTE | 2021-05-08 16:36 | NUR ---
ASSUMED PATIENT CARE AT 0700. ALERT TO SELF. IRRITABLE. HR UP TO 180/M IN AM. STARTED CARDIZEM GTT AND STOP AT 1615. TOLERATED ON 6L/NC. ON CHAIR ALL DAY. REFUSED TO BACK TO BED. BLE 3+ EDEMA. SOB WITH EXERTION. SLOLWY TOWARDS POC GOALS.
[2021-05-08 20:16] VITALS: BP 101/55
[2021-05-09 04:37] VITALS: BP 113/64
--- NOTE | 2021-05-09 07:55 | NUR ---
PT IS A/0X4 WITH SOME CONFUSION AT TIMES. PT REFUSES TO HAVE HIS IV ACCESS FLUSHED AND REFUSED HIS HEPARIN INJECTION. PT ON PHONE MULTIPLE TIMES AND YELLS AT HIS . POC WITH 02 SATURATION AT 6L. ISOLATION PRECAUTIONS IN PLACE.
--- NOTE | 2021-05-09 11:58 | NUR ---
DEEPA reviewed chart and spoke with nursing and attending physician. Pt remains in Enhanced Isolation due to COVID. Pt is afebrile and on 6L of O2. Pt is on IV abx. Cardiology consulted. Pt is on Cardizem gtt. DEEPA placed call to pt's room. No answer. DEEPA spoke with pt's via phone regarding discharge plan for both she and pt. Pt's has a 5N consult for possible admission to inpt acute rehab. DEEPA explained need for insurance auth and also discussed possible SNF placement. DEEPA discussed that SNFs are requiring an isolation period in the hospital prior to admission. The required isolation period is determined by each facility. Pt's verbalized understanding and states that she would like pt to be evaluated for 5N as well. Pt's states that she will discuss with him today. Request for 5N consult. DEEPA notified 5N education liaison of new consult. DEEPA is following to assist as needed with discharge planning.
[2021-05-09 12:04] VITALS: BP 96/65
[2021-05-09 16:53] VITALS: BP 148/73
--- NOTE | 2021-05-09 18:43 | NUR ---
PT OCCOSSIONALLY VERY PASSIONATE ABOUT HIS OPINION IN A LOUB BOISTEROUS MANNER. STATES HE WILL LIKE TO GO HOME BECAUSE HE HAS EVERYTING HE NEEDS AT HOME. USES URINAL. PREFERS TO STAY UP ON THE CHAIR. WILL CONT WITH PLAN OF CARE.
[2021-05-09 19:20] VITALS: BP 110/61
[2021-05-10 04:45] VITALS: BP 101/73
--- NOTE | 2021-05-10 06:36 | NUR ---
PT IN BETTER SPIRITS. VOIDS VIA URINAL. AT 0330 STARTED GOING BACK INTO RVR. RATES 120-170. GAVE 0900 180MG DILTIAZEM. AFTER 1HR HR'S STILL 120+. CALLED BIRD TRAPPER AND SHE SAID TO CALL COIL MACHINE SUPERVISOR SINCE THEY WERE FOLLOWING. SPOKE TO COIL MACHINE SUPERVISOR AND RECEIVED ORDER FOR 5MG LOPRESSOR. RATE DROP TO 92. WILL CONTINUE TO WATCH.
[2021-05-10 07:17] VITALS: BP 128/86
[2021-05-10 10:49] LABS: HEMOGLOBIN 9.7 gm/dL (14.0-18.0); RBC 3.38 mil/uL (4.50-6.00)
[2021-05-10 10:50] LABS: HEMATOCRIT 29.6 % (42.0-52.0); MCH 28.7 pg (26.0-34.0); MCV 87.7 fL (80.0-100.0); PLATELET COUNT 229 thou/uL (150-400); RDW 18.2 % (10.5-14.5)
[2021-05-10 10:51] LABS: ABSOLUTE NEUTROPHILS 7.8 thou/uL (1.4-8.2); BASOPHILS 0.5 % (0.0-2.0); EOSINOPHILS 0.2 % (0.0-3.0); LYMPHOCYTES 8.4 % (24.0-44.0); POLYS 86.9 % (36.0-66.0)
[2021-05-10 10:52] LABS: MCHC 32.7 g/dL (28.0-37.0)
[2021-05-10 10:59] LABS: ALBUMIN 2.7 g/dL (3.4-5.0); CALCIUM 9.4 mg/dL (8.5-10.1); POTASSIUM 3.5 mmol/L (3.5-5.1); TOTAL BILIRUBIN 0.3 mg/dL (0.2-1.0); TOTAL PROTEIN 7.2 g/dL (6.4-8.2)
[2021-05-10 11:20] VITALS: BP 105/61
[2021-05-10 13:12] LABS: ANISOCYTOSIS 1+
--- NOTE | 2021-05-10 13:34 | NUR ---
DEEPA reviewed chart and spoke with nursing and attending physician. Pt remains in Enhanced Isolation due to COVID. Pt is afebrile and on 6L of O2. Pt is on IV abx. Pt more lethargic today. No weekend discharge planned. Pt was evaluated by 5N yesterday and noted to not be an appropriate for acute rehab due to lack of participation. DEEPA spoke with pt's via phone to discuss plans for pt. Pt's states that she spoke with pt last evening and he is agreeable with participating with therapy. Pt is not able to discharge home. Discussed pt's current status. Pt's states she tried to talk to him this morning and he was very tired and did not talk very much. Pt's would like pt to be reconsidered for 5N, as she has been accepted pending insurance auth. DEEPA discussed with 5N liaison officer. 5N to re-eval on Thursday. Will need insurance auth for pt. DEEPA updated attending physician. DEEPA is following to assist as needed with discharge planning.
--- NOTE | 2021-05-10 15:20 | NUR ---
assumed care of pt at 0700. pt alert to self and place. otherwise confused. more soft spoken and reserved today. refusing therapies. some difficulty following directions when ambulating and taking medications. using urinal. incontinent at times. sitting in chair. poor appetite. vitals stable. UA ordered. lopressor prn given for tachycardia. HR remains 100-140s. isolation precautions in place.
[2021-05-10 15:22] VITALS: BP 101/56
[2021-05-10 21:40] VITALS: BP 112/55
[2021-05-11 03:46] VITALS: BP 124/61
--- NOTE | 2021-05-11 04:19 | NUR ---
oxygen increased to 10 liters tonight to keep his oxygen sat. at least 95%. he stated he is exhausted and his buttock is sore from sitting in the chair. He is in the bed as of 299. he is too tired and uncomfortable to sit up in chair. he has great difficulty with urinating while sitting or laying down. as soon as he stands he empties his bladder. too weak and tired to stand for any length of time. vs stable and o2 sat is stable.
[2021-05-11 05:18] LABS: URINE BILIRUBIN NEGATIVE (Negative); URINE BLOOD 1+ (Negative); URINE CLARITY CLEAR; URINE COLOR YELLOW; URINE GLUCOSE-RANDOM* NEGATIVE (Negative); URINE KETONES NEGATIVE (Negative); URINE NITRITE-REFLEX NEGATIVE (Negative); URINE PROTEIN (DIPSTICK) 1+ (Negative); URINE SPECIFIC GRAVITY <= 1.005 (1.005-1.035); URINE UROBILINOGEN 0.2 E.U./dl (0.2-1.0)
[2021-05-11 05:20] LABS: URINE LEUKOCYTES-REFLEX 1+ (Negative)
[2021-05-11 06:16] LABS: BACTERIA-REFLEX 1-9 Few /HPF (None Seen); CASTS None Seen /LPF (None Seen); CRYSTALS None Seen /LPF (None Seen); SQUAMOUS None Seen /LPF (0-3); URINE RBC 1-2 Rare /HPF (NONE SEEN); URINE WBC-REFLEX 0-5 Rare /HPF (0-5)
[2021-05-11 07:36] VITALS: BP 118/62
--- NOTE | 2021-05-11 08:53 | NUR ---
PATIENT WAS FOUND ON 10L HIS SAT ON 10L WAS 100% RT LOWERED OXYGEN TO 6L WITH A SAT OF 94%. PATIENT STATED HE WAS IN PAIN INFORMED RN. PATIENT BREATH SOUNDS ARE COARSE PATIENT HAS JUNKY COUGH WITH LITTLE SPUTUM PRODUCTION.
[2021-05-11 10:06] LABS: MCH 29.6 pg (26.0-34.0); MCHC 33.2 g/dL (28.0-37.0); MCV 89.1 fL (80.0-100.0); RBC 3.37 mil/uL (4.50-6.00); RDW 18.5 % (10.5-14.5); WBC 6.3 thou/uL (4.0-11.0)
[2021-05-11 10:26] LABS: CALCIUM 9.5 mg/dL (8.5-10.1); CREATININE 2.3 mg/dL (0.7-1.3); MAGNESIUM 1.9 mg/dL (1.8-2.4)
--- NOTE | 2021-05-11 10:57 | NUR ---
patient found on 8L SAT 94% rt lowered oxygen to 7L informed rn
[2021-05-11 11:17] VITALS: BP 112/58
[2021-05-11 15:41] VITALS: BP 124/86
--- NOTE | 2021-05-11 16:59 | NUR ---
CARE ASSUMED AT 0700, ALERT AND ORIENTED X2, DISORIENTED TO TIME AND SITUATION. PT ON 8L OF OXYGEN, SOB WITH EXERTION. PT SEEMED MORE LETHARGIC BUT AROUSABLE. USES URINAL. BEDREST, FALL PRECUATION IN PLACE . WILL CONTINUE TO MONITOR TO MONITOR
[2021-05-11 19:33] VITALS: BP 103/49
[2021-05-12 05:00] VITALS: BP 101/61
[2021-05-12 05:30] LABS: HEMATOCRIT 30.2 % (42.0-52.0); HEMOGLOBIN 9.7 gm/dL (14.0-18.0); MCH 28.5 pg (26.0-34.0); MCV 88.9 fL (80.0-100.0); RBC 3.4 mil/uL (4.50-6.00); RDW 18.1 % (10.5-14.5); WBC 7.7 thou/uL (4.0-11.0)
[2021-05-12 05:40] LABS: CALCIUM 9.2 mg/dL (8.5-10.1); POTASSIUM 3.2 mmol/L (3.5-5.1)
[2021-05-12 08:08] VITALS: BP 120/60
[2021-05-12 11:18] VITALS: BP 108/59
[2021-05-12 12:11] LABS: BE(vivo) 5.5 mmol/L (-2 to +3); HCO3 29.2 mmol/L (22.0-26.0); PCO2 39.4 mmHg (35.0-45.0); PO2 58.6 mmHg (80.0-100.0); pH 7.488 (7.360-7.450); sO2 92.3 % (92.0-98.0)
[2021-05-12 13:20] LABS: URINE BILIRUBIN NEGATIVE (Negative); URINE BLOOD TRACE (Negative); URINE CLARITY CLEAR; URINE COLOR YELLOW; URINE GLUCOSE-RANDOM* NEGATIVE (Negative); URINE KETONES NEGATIVE (Negative); URINE LEUKOCYTES-REFLEX NEGATIVE (Negative); URINE NITRITE-REFLEX NEGATIVE (Negative); URINE PROTEIN (DIPSTICK) 1+ (Negative); URINE UROBILINOGEN 0.2 E.U./dl (0.2-1.0)
[2021-05-12 13:39] LABS: BACTERIA-REFLEX 1-9 Few /HPF (None Seen); CASTS None Seen /LPF (None Seen); CRYSTALS None Seen /LPF (None Seen); SQUAMOUS 0-3 Few /LPF (0-3); URINE RBC None Seen /HPF (NONE SEEN); URINE WBC-REFLEX 0-5 Rare /HPF (0-5)
[2021-05-12 15:22] VITALS: BP 124/54
[2021-05-12] MEDS ORDERED: LINEZOLID600 MG PO (18:44)
[2021-05-12] MEDS ORDERED: CEFEPIME 11 GM/50 ML IV (18:44)
[2021-05-12] MEDS ORDERED: IPRAT-ALBUT 0.5-3 ML INH (18:45)
[2021-05-12] MEDS ORDERED: SOLU-MEDRO40 MG/1 M1 IV PUSH (18:46)
[2021-05-12 21:20] VITALS: BP 105/63
--- NOTE | 2021-05-12 22:40 | NUR ---
PT TRANSFERRED TO [facility]IA [facility] REPORT GIVEN TO [facility] BY MICHEAL ALEX FROM DAY SHIFT. PT'S SIGNED CONSENT SHE IS HIS DPOA. BELONGINGS LEFT IN ROOM SO SENT WITH SPOUSE.
== END 2021-05-12 22:42 | disposition short-term general hospital (02) | DRG 177 ==
LOC: ER 13:40 → EROBS 16:20 → 3W 16:20
PROVIDERS: Emergency Medicine; Internal Medicine; Internal Medicine Pulmonary Disease; Specialist; Student in an Organized Health Care Education/Training Program; ADMIT Hospitalist; ATTEND Hospitalist
DX: U07.1 COVID-19 (principal); J69.0 Pneumonitis due to inhalation of food and vomit; J12.82 Pneumonia due to coronavirus disease 2019; J96.21 Acute and chronic respiratory failure with hypoxia; J96.22 Acute and chronic respiratory failure with hypercapnia; G92 Toxic encephalopathy; N39.0 Urinary tract infection, site not specified; I50.22 Chronic systolic (congestive) heart failure; E44.0 Moderate protein-calorie malnutrition; I48.20 Chronic atrial fibrillation, unspecified; I13.0 Hypertensive heart and chronic kidney disease with heart failure and stage 1 through stage 4 chronic kidney disease, or unspecified chronic kidney disease; I42.9 Cardiomyopathy, unspecified; J44.1 Chronic obstructive pulmonary disease with (acute) exacerbation; J44.0 Chronic obstructive pulmonary disease with (acute) lower respiratory infection; D63.1 Anemia in chronic kidney disease; I27.29 Other secondary pulmonary hypertension; K21.9 Gastro-esophageal reflux disease without esophagitis; F03.90 Unspecified dementia, unspecified severity, without behavioral disturbance, psychotic disturbance, mood disturbance, and anxiety; I71.4 Abdominal aortic aneurysm, without rupture; N40.0 Benign prostatic hyperplasia without lower urinary tract symptoms; E11.22 Type 2 diabetes mellitus with diabetic chronic kidney disease; N18.30 Chronic kidney disease, stage 3 unspecified; Z79.899 Other long term (current) drug therapy; Z79.4 Long term (current) use of insulin; Z79.82 Long term (current) use of aspirin; Z79.01 Long term (current) use of anticoagulants; Z87.891 Personal history of nicotine dependence; Z90.49 Acquired absence of other specified parts of digestive tract; Z68.26 Body mass index [BMI] 26.0-26.9, adult
CPT/HCPCS: 10879